=== PATIENT | female | born 1950 | race Caucasian/White ===

== ENCOUNTER 2017-05-28 11:22 | Inpatient (IN) | payer MEDICARE, OTHER ==
[2017-05-28] VITALS (7 sets, daily range): BP systolic 138–182; BP diastolic 73–100
[~2017-05-28] VITALS: Ht 142 cm; Wt 136.1 kg
--- NOTE | ~2017-05-28 | PR ---
[place], [place] PROGRESS NOTE NAME: RUSS CULVER UNIT #: [id number] ROOM: [facility] DOCTOR: RADHA PERES MD BIRTHDATE: [birth year] DOS: SUBJECTIVE: The patient was seen at her bedside today for followup of her mildly elevated troponin. She is a 66-year-old woman with chronic respiratory failure, who has a tracheostomy in place. She can speak around the tracheostomy when she is feeling well. Today, they did deflated the trach cuff for me so that I could talk to her, but she is very uncomfortable with that at the present. She states that she feels like she has got a lot of phlegm in the back of her throat, which she cannot cough up. She does feel breathless when she is off the ventilator. She denies any chest pain. PHYSICAL EXAMINATION: VITAL SIGNS: Today, her pulse is 70 and regular, blood pressure is 110/60. She is afebrile, pulse oximetry is usually around 97%. NECK: Supple. She does have a tracheostomy in place. LUNGS: Respirations are labored. She does have coarse breath sounds bilaterally. HEART: Has a regular rhythm with a fourth heart sound. ABDOMEN: Morbidly obese. EXTREMITIES: Showed trace edema bilaterally. Peripheral pulses were diminished. Monitor shows sinus rhythm. IMPRESSION: 1. Mildly elevated troponin, most likely due to type 2 myocardial injury from respiratory failure, hypoxemia, sepsis, tachycardia, etc. 2. Chronic respiratory failure with tracheostomy and ventilator support. 3. Morbid obesity. 4. History of Pickwickian syndrome. 5. Type 2 diabetes mellitus, on insulin. 6. History of diastolic congestive heart failure. 7. Recurrent pneumonia and respiratory failure. PLAN: I will review her echocardiogram when it is available. She also had a carotid ultrasound this morning, but this has not yet been interpreted. Further recommendations will depend upon the results of her echocardiogram. I thank Dr. Cadena for asking our advice regarding her care. [place], [place] PROGRESS NOTE NAME: ABIOLARUSS Kavitha UNIT #: [id number] ROOM: [facility] DOCTOR: RADHA PERES MD BIRTHDATE: [birth year] RADHA PERES MD CM:PNTRANS [phone] [id number] RADHA PERES MD 05/30/17 1454 interface
--- NOTE | ~2017-05-28 | PR ---
[place], [place] PROGRESS NOTE NAME: RUSS CULVER UNIT #: [id number] ROOM: [facility] DOCTOR: JET BHATIA MD,RAJIV BIRTHDATE: [birth year] DOS: 05/30/2017 SUBJECTIVE: The patient was seen and examined on 05/30/2017. She remains on mechanical ventilator and is able to speak today. She been noted to be comfortable at this time and continues to be treated with the antibiotics as well. She has not been noted to have any symptoms of hemodynamic instability. The secretions production from the endotracheal tube were noted to be decreased. The oxygen supplementation continued at 30% of oxygen on the mechanical ventilator. OBJECTIVE: VITAL SIGNS: Show normal temperature, respiratory rate 17, heart rate 77 and blood pressure 158/62 this morning was noted. The pulse oxygen saturation of the patient recorded on 30% oxygen as 97% saturation. HEENT: Shows head was atraumatic. Eyes nonicterus. NECK: Tracheostomy in place. CARDIOVASCULAR: S1, S2 audible. LUNGS: The patient was noted without any wheezing or crackles at this time. ABDOMEN: Soft, nontender. LABORATORY DATA: Culture of the endotracheal aspirate noted moderate growth of Proteus mirabilis. Urine culture was noted with CRE which is carbapenem-resistant Enterobacteriaceae with heavy growth. CBC: Normal WBC count, hemoglobin 10.5, hematocrit 34.8 and platelet count 134,000. BMP on 05/30/2017, BUN of 55 and creatinine of 1.35. IMPRESSION: 1. The patient with acute tracheobronchitis with acute on chronic hypoxic respiratory failure, resolving. 2. Possible urinary tract infection versus colonization of Gram-negative species as carbapenem-resistant Enterobacteriaceae was noted as well. 3. History of chronic obesity with long-term ventilator dependency as well. PLAN OF TREATMENT: The patient has been getting vancomycin and imipenem. The antibiotic spectrum will be further decreased based on the current sensitivity results, starting the patient on antibiotics as Rocephin with discontinuation of the vancomycin and Zosyn. If the urinary tract infection needs to be treated, it should be addressed with the Infectious Disease services if necessary. Continuation of current mechanical ventilation at this time. Usual care, other supportive plan of management and treatment. No change in mechanical ventilation will be needed. [place], [place] PROGRESS NOTE NAME: RUSS CULVER UNIT #: [id number] ROOM: [facility] DOCTOR: RAJIV JONES MD BIRTHDATE: [birth year] RAJIV CHAUDHARY MD CM:NIKKI [id number] RAJIV BHATIA MD 05/30/17 1052 interface
--- NOTE | ~2017-05-28 | PR ---
[place], [place] PROGRESS NOTE NAME: RUSS CULVER UNIT #: [id number] ROOM: [facility] DOCTOR: JET BHATIA MD,RAJIV BIRTHDATE: [birth year] DOS: 06/01/2017 SUBJECTIVE: She has been noted to be on mechanical ventilator, able to speak, continue assist control mode mechanical ventilation. N.p.o. past midnight. Bronchoscopy planned for today. Cough has been noted intermittently, inability to expectorate any sputum to the trache. OBJECTIVE: VITAL SIGNS: Showed normal temperature, respiratory recorded as 15, heart rate 76, blood pressure 142/61. Pulse oxygen saturation of the patient noted on 30% oxygen mechanical ventilator 98% saturation on assist control, volume control mechanical ventilation. HEENT: Examination shows tracheostomy in place. NECK: Supple. CARDIOVASCULAR: S1, S2 audible. LUNGS: [id number]-[id number] decreased breath sounds without any wheeze or crackles. ABDOMEN: Soft, obese, nontender. IMPRESSION: 1. Acute tracheobronchitis with noted gram-negative infection. The patient with acute on chronic hypercapnic hypoxic respiratory failure. 2. Chronic ventilator dependency. 3. History of chronic morbid obesity. PLAN OF TREATMENT: No changes in the plan of therapy at this time. Proceed with bronchoscopy as planned for today. Other supportive therapy, plan and management. Any modification treatment if necessary will be done after bronchoscopy. RAJIV CHAUDHARY MD CM:PNTRANS [id number] [id number] RAJIV BHATIA MD 06/01/17 1348 interface
--- NOTE | ~2017-05-28 | WRIGHTHP ---
[place], [place] PATIENT HISTORY AND PHYSICAL EXAM NAME: RUSS CULVER [facility] #: [id number] UNIT #: [id number] ROOM: [facility] DOCTOR: AIMEE GARCIA MD BIRTHDATE: [birth year] DOS: 05/28/2017 HISTORY OF PRESENT ILLNESS: The patient is a 66-year-old female with a past medical history of: 1. Chronic morbid obesity. 2. Chronic respiratory failure with tracheostomy tube and mechanical ventilator dependent. 3. Obesity hypoventilation syndrome. 4. Diastolic type congestive heart failure, chronic. 5. Benign essential hypertension. 6. Generalized weakness and failure to thrive. 7. Type 2 diabetes mellitus. 8. Parkinson disease. 9. Chronic obstructive pulmonary disease. 10. Chronic kidney disease stage 3 with diabetic nephropathy. The patient [facility] where she developed hypoxemia. Her pulse ox was only 60% and not improving with nebulizer treatments and oxygen. The patient was seen in the Emergency Department at [facility] and recommended for admission and further management. After admission, the patient is starting to breathe better. The patient is having severe anxiety episodes, which are being controlled with treatment. A consult has been obtained with turning machine set up operator, Dr. Turner. The patient has been continued on mechanical ventilation and is being treated with oxygen and nebulizer treatments. Mild elevation of troponin levels to 0.130, for which Cardiology is being consulted, and more levels have been ordered. The patient has not been complaining of any angina-like symptoms. REVIEW OF SYSTEMS: CARDIOVASCULAR SYSTEM: No complaint of palpitation, no chest pains. LUNGS: Increased shortness of breath and hypoxemia. GASTROINTESTINAL: No nausea, vomiting, diarrhea, or constipation. GENERAL: Severe anxiety and morbid obesity. FAMILY HISTORY: Noncontributory. SOCIAL HISTORY: The patient is chronically disabled and has chronic respiratory failure and [facility]. MEDICATIONS: Levothyroxine, Tradjenta, primidone, potassium, lisinopril, Lasix, omeprazole, glimepiride, mirtazapine, Sinemet, Colace, allopurinol, DuoNeb, Pulmicort, tramadol, MiraLax, lorazepam, temazepam, levothyroxine. ALLERGIES: Known allergies to TETRACYCLINE, TAPE, SULFA, PHENYLALANINE, and MEPERIDINE. PHYSICAL EXAMINATION: GENERAL: Alert, oriented, morbidly obese. Tracheostomy tube in place with the patient being on mechanical ventilation. The patient is morbidly obese, otherwise has been with generalized muscle weakness, which is severe. [place], [place] PATIENT HISTORY AND PHYSICAL EXAM NAME: RUSS CULVER UNIT #: [id number] ROOM: [facility] DOCTOR: AIMEE GARCIA MD BIRTHDATE: [birth year] VITAL SIGNS: Blood pressure 158/77, heart rate 95 beats per minute, breathing 18 times per minute, temperature 99 degrees Fahrenheit. HEENT AND NECK: Extraocular movements are intact. Sclerae are anicteric. Oral mucosa is moist and clean. No obvious facial weakness. Neck is supple without any lymphadenopathy. No thyromegaly. No JVD. No carotid arterial bruits. LUNGS: Clear to auscultation. No wheezing. No rhonchi. CARDIOVASCULAR SYSTEM: Heart rate is regular in rate and rhythm. S1 and S2 normally audible. No significant murmur or any other abnormal cardiac sounds. ABDOMEN: Soft, nontender. No obvious organomegaly. Bowel sounds are present. No obvious herniation. EXTREMITIES: Without significant cyanosis or edema. Warm to touch. CENTRAL NERVOUS SYSTEM: Alert and oriented x 3. Cranial nerves 2-12 are intact. Speech is normal. The patient is able to move all extremities. Generalized muscle weakness, which is severe. Deep tendon reflexes are equal on both sides. Plantars were downgoing. LABORATORY DATA: Blood gases showed a pH of 7.3, pCO2 of 50, pO2 of 136. Sputum grew normal dheeraj. BUN and creatinine 55 and 1.3. Urine cultures growing heavy gram-negative bacilli more than 100,000 colonies. Troponin level elevated at 0.13. Chest x-ray with no acute abnormality but of limited value because of obesity. PT/PTT were baseline. Normal CBC. Lactic acid level is normal. IMPRESSION: 1. The patient has acute over chronic respiratory failure with mechanical ventilation dependence. The patient admitted to Intensive Care Unit and is being treated with nebulizer treatments, oxygen, antibiotics, and her breathing has improved. Sputum cultures have been sent. Dr. Turner, the turning machine set up operator, is following her. 2. Slight elevation of troponin levels. I will follow up with 2 more troponin levels and consult dock hand to evaluate the patient. 3. Type 2 diabetes mellitus. We will monitor blood sugars and treat accordingly. 4. Chronic morbid obesity. The patient to be educated on diet, and Dietary are following. 5. Chronic congestive heart failure, diastolic type, compensated. 6. Exacerbation of chronic obstructive pulmonary disease, being treated as mentioned above. 7. Parkinson disease, being treated with Sinemet. 8. Chronic gouty arthritis, asymptomatic. The patient on allopurinol. 9. Benign essential hypertension. Blood sugars being monitored and treated. [place], [place] PATIENT HISTORY AND PHYSICAL EXAM NAME: RUSS CULVER UNIT #: [id number] ROOM: [facility] DOCTOR: AIMEE GARCIA MD BIRTHDATE: [birth year] AIMEE GARCIA MD CM:HISPHYS:PATIENT HISTORY AND PHYSICAL EXAMINATION [id number] 37 AIMEE GARCIA MD 05/29/17 1738 interface
--- NOTE | ~2017-05-28 | CON ---
[place], [place] REPORT OF CONSULTATION NAME: RUSS CULVER UNIT #: [id number] ROOM: [facility] DOCTOR: JET BHATIA MD,RAJIV BIRTHDATE: [birth year] DOS: 05/29/2017 REASON FOR CONSULTATION: Assess the patient for acute shortness of breath. The patient with [id number]-[id number] respiratory failure. HISTORY OF PRESENT ILLNESS: This is a 66-year-old white female, long-term dependent on the ventilator with prior tracheostomy, [facility]. The patient was brought to the hospital Emergency Room. She has been noted difficulty of maintaining oxygen saturation to normal. Pulse oxygen saturation was described for this patient in the 70s for the patient at the nursing facility. She was sent to the hospital for further assessment. She has been packed in the Emergency Room and noted improvement in the oxygen saturation. She has been continued mechanical ventilation and has had motor mechanical ventilation with 50% oxygen at this time. Currently, the patient has been noted in mechanical ventilation and stated not feeling well, getting SI mode of mechanical ventilation. The patient pressure support of 10, PEEP of 5.0 with a rate of 14 and tidal volume 700 mL. She has been noted with increased secretion production from the tracheostomy, which was suctioned out at times from the tracheostomy. The patient has recently finished the antibiotics. The reason was unknown. She has not been able to give me any history because of current mechanical ventilation, most of the history has been obtained from the patient and from review of the past medical record of the patient during her previous hospitalization and the nursing notes. PAST MEDICAL HISTORY: 1. Noted chronic hypercapnic and hypoxic respiratory failure, ventilatory dependency. 2. History of centrilobular emphysema. 3. Gastroparesis. 4. Congestive heart failure, diastolic dysfunction. 5. Obstructive sleep apnea disorder. 6. Chronic tracheal stenosis. 7. History of Pickwickian syndrome. 8. Bilateral vocal cord paralysis. 9. History of recurrent pneumonia. 10. Anxiety disorder and depression. 11. History of gout. 12. Chronic severe obesity. 13. History of recurrent urinary tract infection. 14. History of past Pseudomonas aeruginosa pneumonia. PAST SURGICAL HISTORY: Noted as tracheostomy. SOCIAL HISTORY: The patient is not . [facility] She denies history of alcohol, illicit drug use or any tobacco use for this patient at this time. She used to smoke cigarettes in the past, which has been discontinued after a few years. FAMILY HISTORY: Noted essentially noncontributory. [place], [place] REPORT OF CONSULTATION NAME: RUSS CULVER UNIT #: [id number] ROOM: [facility] DOCTOR: JET BHATIA MD,RAJIV BIRTHDATE: [birth year] CURRENT ADMINISTERED MEDICATIONS: Noted use of Synthroid, Tradjenta, primidone, potassium chloride, lisinopril, Lasix, omeprazole, Amaryl, Levemir insulin, Remeron, Sinemet, Haldol p.r.n. use, allopurinol, Pulmicort Respules, DuoNeb, IV vancomycin, Zosyn and other p.r.n. medications. ALLERGIES: 1. SULFA DRUGS. 2. PHENYLALANINE. 3. MEPERIDINE. PHYSICAL EXAMINATION: GENERAL: A 66-year-old female who has been currently noted on mechanical ventilator without any distress. She was noted with rather mild distress at time of the assessment. Height for this patient was recorded by the nursing staff at the time of current admission with height of 4 feet 8 inches, weight of 300 pounds. The patient's BMI of 67.4. VITAL SIGNS: For the patient which was recorded shows the temperature noted at 100.6 degree Fahrenheit to normal temperature this morning, respiratory rate 26-17, heart rate 115, blood pressure 160/100 to 116/62. Pulse oxygen saturation of the patient recorded on 50% oxygen at this time as 100% saturation. HEENT: Examination shows head was atraumatic. NECK: Short, obese and supple. Tracheostomy in place. CARDIOVASCULAR SYSTEM: S1, S2 audible. LUNGS: The patient was noted without any wheezing or crackles. ABDOMEN: Soft, severe obesity. EXTREMITIES: Shows no edema, clubbing, cyanosis. The patient is able to move the upper and lower extremities. MUSCULOSKELETAL: No deformities. SKIN: No lesions or rashes. LABORATORY DATA: The chest x-ray that was done for the patient in the Emergency Room noted with significant ____ for the patient in the lower portion of the lungs. The patient was also covered with abdomen flap. The infiltration ____ at this time cannot be clearly noted. CMP that was done on 05/28/2017 for the patient showed glucose 166, BUN 52, creatinine 1.21. The LFTs were noted essentially normal grossly except alkaline phosphatase mildly elevated at 177. Troponin noted 0.052. Troponin second set for the patient this morning noted 0.130. Urine culture noted heavy growth of gram-negative bacilli. Tracheal aspirate yesterday on admission were having white blood cells with moderate gram-positive diplococci service with gram-negative bacilli, moderate growth of gram-negative rods was noted pending identification and sensitivities. The arterial blood gas for the patient that was done for this patient yesterday shows pH 7.31, pCO2 of 54, pO2 115, 50% oxygen on SI mode. Repeat arterial blood gas that was done this morning, the patient same mode of mechanical ventilation, 50% oxygen, pH of 7.08769, pCO2 of 50, pO2 136. Lactic acid yesterday for this patient admission was noted as normal. IMPRESSION: 1. The patient who had been currently admitted to the hospital with signs of [place], [place] REPORT OF CONSULTATION NAME: RUSS CULVER UNIT #: [id number] ROOM: [facility] DOCTOR: JET BHATIA MD,[facility] BIRTHDATE: [birth year] early acute sepsis with gram-negative bacilli isolation from the endotracheal aspirate of the patient with strep strong possibly acute infection, Pseudomonas aeruginosa. 2. Acute with chronic hypercapnic respiratory failure. 3. Qimxn-qa-birribt hypoxic respiratory failure as well. 4. Chronic morbid obese patient with ventilatory dependency, history of bilateral vocal cord paralysis. 5. Recurrent coronary sedation for this patient and infection of the urinary tract. PLAN OF MANAGEMENT: The patient has been started on assist control mode mechanical ventilation at this time. Arterial blood gases will be monitored for patient as needed. Decrease the oxygen to 30% oxygen and monitor oxygen saturation to maintain saturation of 90% greater and further adjust the oxygen accordingly. Monitor culture results of urine for the patient and the endotracheal aspirate of the patient to make any further changes in the management. Use of low dose sedation patient might need to be done for the patient if the patient continued to remain anxious with ventricular asynchrony if noted. Usual care. Supportive therapy plan of management. Nutrition support for the patient at this time we will continue if the patient does eat food while awake on the mechanical ventilator without any difficulty. That will be continued as long as the patient would not have any respiratory difficulty. Other supportive therapy, plan of management. Usual care. DVT prophylaxis. Usual plan of management. Further treatment changes will be done based on progression of the illness. The patient will be continued on current broad spectrum intravenous antibiotics. Lovenox added for the patient's DVT prophylaxis. RAJIV CHAUDHARY MD CM:CONSTR:REPORT OF CONSULTATION 1033 05/29/17 1225 interface
--- NOTE | ~2017-05-28 | PROC NOTE ---
[place], [place] PROCEDURE NOTE NAME: RUSS CULVER UNIT #: [id number] ROOM: [facility] DOCTOR: JET BHATIA MD,RAJIV BIRTHDATE: [birth year] DOS: 06/01/2017 PROCEDURE: Bronchoscopy. PREOPERATIVE DIAGNOSES: Severe cough with the patient's inability to expectorate sputum. The patient with respiratory failure. POSTOPERATIVE DIAGNOSES: Removal of multiple plugs and mucus, endobronchial tree bilaterally. FINDINGS: Acute tracheobronchitis. There were no obstructive lesions. COMPLICATIONS: None. PROCEDURE DESCRIPTION: Informed consent obtained for the patient. The patient was given 5 mg Versed for conscious sedation. Procedure was done at the bedside in Intensive Care Unit negative pressure room. The video fiberoptic bronchoscope was advanced through the tracheostomy into the tracheal lumen, noted very thick purulent secretion, brownish in color and were suctioned out to the iris level. Iris noted sharp. Moderate amount of ____ recurrent mucus plugs, endobronchial tree bilaterally all subsegments of right upper, right middle, left upper, lingular lower lobes. All the secretions suctioned out with the help of normal saline wash, sent for cultures. Procedure was tolerated by the patient without any difficulty. Postoperative finding will be discussed with the patient once the patient recovers the effects of acute sedation. Based on the current bronchoscopy, patient may be considered for discharge to the long-term facility if necessary with followup cultures may modification of antibiotic colonic culture results as necessary. RAJIV CHAUDHARY MD CM:PROCNOTE:PROCEDURE NOTE 1332 [id number] RAJIV BHATIA MD
--- NOTE | ~2017-05-28 | CON ---
[place], [place] REPORT OF CONSULTATION NAME: RUSS CULVER UNIT #: [id number] ROOM: [facility] DOCTOR: RADHA PERES MD BIRTHDATE: [birth year] DOS: 05/29/2017 REASON FOR CONSULTATION: Elevated troponin. HISTORY OF PRESENT ILLNESS: The patient is a 66-year-old woman, who does not have any history of heart disease to her knowledge. She does have a long history of emphysema and respiratory failure. She has had multiple episodes of respiratory failure and has been intubated on numerous occasions. A tracheostomy was placed and now she is constantly on a ventilator. She tells me that typically they leave the cuff of her tracheostomy partially deflated so that she can talk, but she does stay on the ventilator all the time. She denies any chest pain or history of myocardial infarction. She was noted at the correction to have increased hypoxemia and increased oxygen demands. She had just been taken off of a course of antibiotics and believes that she does have a urinary infection, pulmonary infection. She has had some bloody sputum and increased pulmonary secretions. On admission, troponin levels were obtained and were found to be mildly elevated at 0.052, on repeat it was 0.130 and then 0.088. Cardiology was therefore asked to see her. As noted, she denies any history of heart disease or myocardial infarction. Review of her old laboratory studies show that she has had mildly elevated troponin levels in the past, typically in the 0.02 to 0.05 range. The patient does admit to occasional palpitations, but denies lightheadedness or syncope. PAST MEDICAL HISTORY: 1. Chronic hypercapnic and hypoxemic respiratory failure. The patient is dependent on a ventilator through tracheostomy. 2. History of central lobular emphysema. 3. History of gastroparesis. 4. History of "diastolic heart failure." Her most recent echocardiogram on 11/27/2014 was a technically difficult study. Ejection fraction was 50%, right ventricular systolic function was noted to be preserved. There was no pericardial effusion. 5. History of Pickwickian syndrome. 6. 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 7. History of recurrent pneumonia. 8. History of anxiety and depression. 9. History of morbid obesity. 10. History of recurrent urinary tract infections. MEDICATIONS: Prior to admission, budesonide 0.5 mg by inhalation b.i.d., DuoNeb 3 mL by inhalation every 4 hours, acetaminophen p.r.n., allopurinol 100 mg b.i.d., buspirone 10 mg b.i.d., carbidopa/levodopa 25/100 q. 12 hours, vitamin D 4000 units daily, docusate 100 mg b.i.d., folic acid 1 mg daily, furosemide 40 mg daily, glimepiride 4 mg daily, levothyroxine 300 mcg daily, lisinopril 2.5 mg daily, lorazepam 0.5 mg q. 8 hours, magnesium oxide 400 mg t.i.d., mirtazapine [place], [place] REPORT OF CONSULTATION NAME: RUSS CULVER UNIT #: [id number] ROOM: [facility] DOCTOR: RADHA PERES MD BIRTHDATE: [birth year] 15 mg at bedtime, multivitamin daily, Ocuvite daily, omeprazole 20 mg daily, potassium 20 mEq daily, Mysoline 50 mg at bedtime and 25 mg during the day, Sitagliptin 50 mg daily, temazepam 30 mg at bedtime p.r.n. insomnia, tramadol 50 mg q.12 hours p.r.n., Lantus insulin 50 units subcutaneous b.i.d. and regular insulin by sliding scale. ALLERGIES: She lists allergies to TETRACYCLINE, SULFAMETHOXAZOLE, TRIMETHOPRIM, PHENYLAMINE, MEPERIDINE and TAPES. FAMILY HISTORY: Negative for early coronary artery disease. SOCIAL HISTORY: The patient is unmarried. She is a resident of a correction. She does not consume alcohol. She has had a history of tobacco abuse in the past, but not for quite some time. PHYSICAL EXAMINATION: GENERAL: The patient is an obese white female who is awake, alert and oriented. VITAL SIGNS: Pulse is 97 and regular, blood pressure is 148/72. She is afebrile. She weighs 136.1 kg and has a body mass index of 67.5. HEENT: Normocephalic, atraumatic. Extraocular muscles are intact. Sclerae are clear. Pupils are equal, round and reactive to light. The oral mucosa is moist. Tongue is midline. NECK: Supple. It is obese. I could not see jugular distention. Carotids were full. She does have soft carotid bruits bilaterally and does admit that she can hear her pulses in her ears. Oral mucosa is moist. Tongue is midline. RESPIRATORY: Respirations are per ventilator. LUNGS: She has decreased breath sounds at the bases. I heard no rales. CARDIOVASCULAR: Her heart has a regular rhythm with a fourth heart sound, but no third heart sound or murmur. The PMI is not displaced. ABDOMEN: Grossly obese, but soft and normally active without masses, organomegaly or bruits. EXTREMITIES: Showed trace edema bilaterally. Peripheral pulses were diminished bilaterally. LABORATORY DATA: Her electrocardiogram showed a mild sinus tachycardia and nonspecific T-wave abnormalities. IMPRESSION: 1. Mild elevation in troponin. Most likely this is due to a type 2 myocardial injury (demand ischemia) from respiratory failure, hypoxemia, sepsis, tachycardia, etc. I do not see any evidence for an acute myocardial infarction. 2. Chronic respiratory failure on a ventilator with the tracheostomy. 3. Morbid obesity. 4. History of Pickwickian syndrome. 5. Type 2 diabetes mellitus, on insulin. 6. History of diastolic congestive heart failure. 7. Recurrent pneumonias and respiratory failure. PLAN: We will repeat her echocardiogram since one has not been done in several years. She also notes she hears her pulses in her ears and I heard soft bruits. [place], [place] REPORT OF CONSULTATION NAME: RUSS CULVER UNIT #: [id number] ROOM: [facility] DOCTOR: RADHA PERES MD BIRTHDATE: [birth year] So we will be getting a carotid ultrasound. If her left ventricular function is normal and wall motion appears normal, then no other cardiac workup or changes in management would be indicated. I thank Dr. Cadena for asking our advice regarding her care. RADHA PERES MD CM:CONSTR:REPORT OF CONSULTATION 1702 05/29/17 376 interface
--- NOTE | ~2017-05-28 | PR ---
[place], [place] PROGRESS NOTE NAME: RUSS CULVER UNIT #: [id number] ROOM: [facility] DOCTOR: RADHA PERES MD BIRTHDATE: [birth year] DOS: SUBJECTIVE: The patient was seen at her bedside in the intensive care unit today 05/31/2017. She has no family at the bedside at this time. She is able to speak around her tracheostomy. She states that her breathing is still quite limited, but she may be gradually improving. She denies any chest pain, palpitations or syncope. PHYSICAL EXAMINATION: VITAL SIGNS: Today, her pulse is 95 and regular, blood pressure 147/78. She is afebrile. NECK: Supple. She does have a tracheostomy in place. LUNGS: Respirations are somewhat labored in tachypnea. She has decreased breath sounds bilaterally. HEART: Has a regular rhythm with an S4 gallop. ABDOMEN: Markedly obese. EXTREMITIES: Showed trace edema bilaterally. Peripheral pulses are diminished. Her monitor shows that she is still in sinus rhythm. I reviewed her echocardiogram, it is a technically limited study due to her body habitus, but shows normal left ventricular size with mild concentric left ventricular hypertrophy. Left ventricular regional wall motion and systolic function are normal with stage II diastolic relaxation abnormalities. The left atrium appeared to be dilated. She has no significant valvular heart disease. A carotid ultrasound was also reviewed and showed less than 50% stenoses bilaterally by NASCET criteria. IMPRESSION: 1. Mildly elevated troponin. This most likely represents a type 2 myocardial injury due to her respiratory failure, hypoxemia, sepsis, tachycardia, etc. 2. Chronic respiratory failure with tracheostomy and ventilator support. 3. Morbid obesity. 4. History of Pickwickian syndrome. 5. Type 2 diabetes mellitus, on insulin. 6. History of diastolic congestive heart failure. 7. Recurrent pneumonia and respiratory failure. PLAN: The patient appears stable from a cardiac standpoint and no other evaluation is planned at this time. We will sign off for now, but be available if needed. It is my understanding that she will undergo bronchoscopy in the near future and this probably will help alleviate some of her dyspnea. We thank Dr. Cadena for asking our advice regarding her care. [place], [place] PROGRESS NOTE NAME: RUSS CULVER UNIT #: [id number] ROOM: [facility] DOCTOR: RADHA PERES MD BIRTHDATE: [birth year] RADHA PERES MD CM:PNTRANS [id number] RADHA PERES MD 05/31/17 1905 interface
--- NOTE | ~2017-05-28 | PR ---
[place], [place] PROGRESS NOTE NAME: RUSS CULVER UNIT #: [id number] ROOM: [facility] DOCTOR: RAJIV JONES MD BIRTHDATE: [birth year] DOS: 05/31/2017 SUBJECTIVE: She has been noted to be coughing with chest congestion and would like to bronchoscopy done. She remains on mechanical ventilator, tolerating it very well. She has not been noted with any symptoms of chest pain. Started on IV Rocephin yesterday for medical management of tracheobronchitis. OBJECTIVE: VITAL SIGNS: Shows temperature as 99 degrees Fahrenheit, normal temperature; respiratory 13-18; heart rate 76 and blood pressure 115/83 to 134/66. The pulse oxygen saturation on 30% oxygen 100% saturation recorded. HEENT: No acute change. NECK: Supple. CARDIOVASCULAR: S1, S2 is audible. LUNGS: Noted without any wheeze or crackles at the present time. The breaths are noted to be mild to moderately decreased bilaterally. The tracheostomy is in place. ABDOMEN: Soft, nontender. EXTREMITIES: Show mild edema. LABORATORY DATA: CBC this morning: WBC count is normal, hemoglobin 10.1, hematocrit 33.4 and platelet count is normal. BMP noted BUN of 50 and creatinine of 1.32. The remaining electrolytes were normal. IMPRESSION: 1. Acute tracheobronchitis with Gram-negative infection, retained secretions, in the endobronchial tree. 2. Acute on chronic hypoxic respiratory failure and hypercapnia as well, responding to treatment. 3. Possible colonization of the bladder with Gram-negative infection. 4. Edema of the lower extremities. 5. Chronic severe morbid obesity. PLAN OF TREATMENT: Bronchoscopy planned to be done in the morning, n.p.o. past midnight status. The patient will be ____ from midnight tonight. Continue in the meantime other therapy, plan of management. Usual care, other supportive plan of care. Usual medical management. [place], [place] PROGRESS NOTE NAME: RUSS CULVER UNIT #: [id number] ROOM: [facility] DOCTOR: RAJIV JONES MD BIRTHDATE: [birth year] RAJIV CHAUDHARY MD CM:PNTRANS [id number] [facility]7 RAJIV BHATIA MD 05/31/17 1027 interface
--- NOTE | ~2017-05-28 | DS ---
[place], [place] DISCHARGE SUMMARY NAME: RUSS CULVER UNIT #: [id number] ROOM: [facility] DOCTOR: AIMEE GARCIA MD BIRTHDATE: [birth year] DOS: 06/01/2017 DISCHARGE DIAGNOSES: 1. Acute over chronic respiratory failure and mechanical ventilation dependence with tracheostomy tube in place, improved with treatment. 2. Chronic morbid obesity and obesity hypoventilation syndrome. 3. Benign essential hypertension. 4. Chronic diastolic type compensated congestive heart failure. 5. Parkinson's disease and generalized weakness. 6. Urinary tract infection, Klebsiella pneumoniae apparently colonies. 7. Type 2 diabetes mellitus. 8. Chronic obstructive pulmonary disease. 9. Chronic kidney disease stage 3 with diabetic nephropathy. 10. The patient chronic respiratory failure, tracheostomy and ventilator dependent, became hypoxemic at retirement and pulse ox dropped to 60% and was not improving with breathing treatments and suctioning and she was sent to the Emergency Department. After initial evaluation, she was admitted to the ICU for further management. The patient was treated with bronchodilators, oxygen, nebulizer treatments, antibiotics and corticosteroids. The patient was finally taken for bronchoscopy by Dr. Turner and she has been cleared for discharge, back to retirement since she is maintaining her pulse ox with present ventilator settings. 11. Morbid obesity and obesity hypoventilation syndrome. We took bedsore precautions, every 2 hour turning and using an air mattress. 12. Generalized weakness and adult failure to thrive. The patient is bedbound. 13. Chronic diastolic type congestive heart failure, compensated. 14. Type 2 diabetes mellitus. Blood sugars are monitored and treated. 15. Parkinson's disease and generalized weakness. The patient treated with Sinemet. 16. Diabetic nephropathy with chronic kidney disease stage 3. LABORATORY DATA: Carotid artery Doppler showing less than 50% stenosis on both sides, right ankle x-rays without fracture. Echocardiogram showed mild concentric LVH. Blood cultures were negative. Cardiac enzymes were negative except for mild elevation, which was thought to be secondary to respiratory failure. The patient was seen by Cardiology. [place], [place] DISCHARGE SUMMARY NAME: RUSS CULVER UNIT #: [id number] ROOM: [facility] DOCTOR: AIMEE GARCIA MD BIRTHDATE: [birth year] AIMEE GARCIA MD CM:RAJESH [id number] AIMEE GARCIA MD 06/01/17 1726 interface
--- NOTE | ~2017-05-28 | PR ---
[place], [place] PROGRESS NOTE NAME: RUSS CULVER UNIT #: [id number] ROOM: [facility] DOCTOR: AIMEE GARCIA MD BIRTHDATE: [birth year] DOS: 05/30/2017 SUBJECTIVE: The patient is awake, alert, apparently breathing better. OBJECTIVE: VITAL SIGNS: Blood pressure 166/75, heart rate of 87 beats per minute, afebrile, breathing 15 times per minute. The patient remains on mechanical ventilation. GENERAL APPEARANCE: The patient is alert and oriented x 3, in no visible distress. Morbid obesity. Generalized weakness and advanced disability. HEENT AND NECK: Exam within normal limits. Tracheostomy tube in place. CARDIOVASCULAR SYSTEM: Heart rate is regular in rate and rhythm. S1 and S2 normally audible. LUNGS: Clear to auscultation. ABDOMEN: Soft, nontender. No obvious organomegaly. Bowel sounds are present. EXTREMITIES: Without significant cyanosis or edema. IMPRESSION: 1. The patient's minor elevation of troponin I levels considered to be secondary to myocardial injury from respiratory failure and hypoxemia. 2. Acute over chronic respiratory failure is being followed by the drill press operator helper and now she is being treated with IV Rocephin. 3. Urinary tract infection. Urine culture is growing Klebsiella pneumoniae, likely colonization because the patient otherwise asymptomatic. 4. Acute over chronic respiratory failure, being followed by Dr. Turner, antibiotics changed as mentioned above. 5. Parkinson's disease treated with Sinemet, generalized weakness. 6. Chronic diastolic type congestive heart failure, compensated. 7. Chronic gouty arthritis treated with allopurinol. 8. Benign essential hypertension with controlled blood pressures. 9. Morbid obesity. We are taking bedsore precautions turning her every 2 hours and using an air mattress. AIMEE GARCIA MD CM:PNTRANS [id number] AIMEE GARCIA MD 05/31/17 0029 interface
--- NOTE | ~2017-05-28 | PR ---
[place], [place] PROGRESS NOTE NAME: RUSS CULVER UNIT #: [id number] ROOM: [facility] DOCTOR: AIMEE GARCIA MD BIRTHDATE: [birth year] DOS: 05/31/2017 SUBJECTIVE: The patient continues to feel better and she has been scheduled for bronchoscopy by Dr. Turner tomorrow. OBJECTIVE: VITAL SIGNS: Blood pressure 159/83, heart rate 76 beats and breathing 13-18 times per minute, temperature 98 degrees Fahrenheit. GENERAL APPEARANCE: The patient is alert and oriented x 3, in no visible distress. Generalized weakness. HEENT AND NECK: Exam within normal limits. CARDIOVASCULAR SYSTEM: Heart rate is regular in rate and rhythm. S1 and S2 normally audible. LUNGS: Tracheostomy tube and mechanical ventilation dependence. ABDOMEN: Morbidly obese. Soft, nontender. No obvious organomegaly. Bowel sounds are present. EXTREMITIES: Without significant cyanosis or edema. IMPRESSION: 1. The patient with acute on chronic respiratory failure. Her hypoxemia at nursing was as low as 60%, pulse ox has now improved. Dr. Turner is treating her with IV Rocephin and taking her for bronchoscopy tomorrow following which I am hoping I can discharge her back to the longterm. 2. Urinary tract infection growing Klebsiella pneumoniae, apparently a colonizer of certain resistant organism and otherwise the patient is asymptomatic. 3. Parkinson's disease treated with Sinemet and generalized weakness. 4. Chronic diastolic type congestive heart failure, compensated. 5. Chronic gouty arthritis, asymptomatic with allopurinol. 6. Benign essential hypertension with controlled blood pressures. 7. Morbid obesity. We are taking bedsore precautions turning her every 2 hours and using an air mattress. AIMEE GARCIA MD CM:PNTRANS [id number] AIMEE GARCIA MD 05/31/17 1251 interface
[~2017-05-28 11:22] MED LIST: 'XANAX0.25 MG PO; 'XANAX0.5 MG PO; ALLEGRA30 MG PO; ALLEGRA60 M1 PO; ALLOPURINOL100 MG PO; AMARYL4 MG PO; ARTIFICIAL TEA1 EACH OP; ATARAX25 MG PO; B121000 MCG/1 IM; BACTRIM DS 8001 TA1 PO; BUDESONIDE0.5 MG/2 M IH; BUSPAR5 MG PO; BUSPIRONE10 MG PO; Bactroban Oint22 GM T; CARBIDOPA/LEVOD1 TA1 PO; CIPROFLOXACIN500 MG PO; CLARITIN10 MG PO; COLACE100 MG PO; COREG3.125 MG PO; DIABETA5 MG PO; DUONEB 3 MG/3 ML3 M1 INH; DUONEB 3ML 3 MG/3 ML INH; Duoneb 3ML 3 MG/3 ML INH; ELTROXIN0.3 MG PO; FEXOFENADINE HC30 MG PO; FOLIC ACID1 MG PO; FUROSEMIDE20 MG PO; GLUCAGEN1 MG IJ; GLUTOSE 1515 GM PO; GLYCOLAX17 GM/DOSE PO; GOLD BOND MEDI113 GM TP; HYDROCODONE BIT1 T11 PO; JANUVIA100 MG PO; K-DUR 2020 MEQ PO; K-DUR 20MEQ20 MEQ PO; K-DUR20 MEQ PO; K-TAB20 MEQ PO; LANTUS100 U/ML SC; LASIX20 MG PO; LASIX40 MG PO; LEVOTHYROXINE0.05 MG PO; LEVOTHYROXINE0.15 MG PO; LEVOTHYROXINE300 MCG PO; LISINOPRIL2.5 MG PO; LORTAB 5/3251 TAB PO; MAG-OX 400400 MG PO; MAGNESIUM OXID400 MG PO; METOCLOPRAMIDE10 M3 PO; MILK OF MAGNESI1 TAB PO; MIRALAX17 GM/DOSE PO; MIRALAX17 GM/PACK PO; MOM30 ML PO; MYSOLINE50 M2 PO; Mysoline50 MG PO; NATURE'S BLEND F1 MG PO; NORCO 325 MG-51 TAB PO; NOVOLIN 701 UNIT/0.0 SC; NOVOLIN N100 U/ML SC; NOVOLIN R100 U/ML IJ; NOVOLIN R100 U/ML SC; NYAMYC100000 U/G TP; NYSTATIN CREAM T; Nystatin Cream15 GM T; OCUVITE EYE +1 EACH PO; OMEPRAZOLE D/R20 MG PO; PRILOSEC10 MG PO; PRILOSEC20 M1 PO; PRILOSEC20 MG PO; PULMICORT0.2 MG/ACT INH; PULMICORT180 MCG/Ac NEB; REGLAN10 M1 PO; REGLAN10 MG PO; REGLAN5 MG PO; REMERON15 M2 PO; REMERON45 MG PO; ROCEPHIN1 GM/50 M1 IV; SERTRALINE100 MG PO; SYNTHROID,LEV150 MCG PO; SYNTHROID,LEV175 MCG PO; SYNTHROID,LEV200 MCG PO; SYNTHROID,LEVO25 MCG PO; SYNTHROID0.15 MG PO; SYNTHROID0.3 MG PO; Synthroid,Lev200 MCG PO; TAB-A-VITE1 TA1 PO; TRAVATAN 0.0042.5 ML OU; TRAVATAN 2.5 M2.5 ML OPH; TYLENOL ARTHRI650 MG PO; TYLENOL325 M1 PO; TYLENOL650 M1 PO; VISTARIL25 MG PO; VITAMIN D1000 IU PO; VITAMIN D3 PO; VITAMIN D31000 IU PO; VITAMIN D32000 I1 PO; VITAMIN D32000 IU PO; VITAMIN-D1000 IU PO; Vicodin 5/500 505 MG PO; XANAX0.25 MG PO; ZESTRIL2.5 MG PO; ZOFRAN ODT4 MG SL; ZOLOFT PO; ZOLOFT100 MG PO; ZOLOFT25 MG PO; ZOLOFT50 MG PO; ZYLOPRIM100 MG PO; Zofran4 MG PO; [UNRECOGNIZED DRUG - OTHER] IM; [UNRECOGNIZED DRUG - OTHER] IV
[2017-05-28 11:59] LABS: BASO % 0.3 % (0.0-1.0); EOS # 0.2 10*3/uL (0.0-0.4); EOS % 2.1 % (1.0-4.0); HEMATOCRIT 41.1 % (37.0-47.0); HEMOGLOBIN 12.7 g/dl (12.0-16.0); IG # 0.1 10*3/uL (0.0-0.1); LYMPH % 10.3 % (27.0-41.0); MEAN CELL VOLUME 96.9 fl (81.0-99.0); MEAN CORPUSCULAR HGB CONC 30.9 g/dl (33.0-37.0); MEAN PLATELET VOLUME 11.5 fl (9.6-12.3); MONO # 0.6 10*3/uL (0.1-1.0); MONO % 6.4 % (3.0-9.0); NEUT # 7.8 10*3/uL (2.3-7.9); NEUT % 80.4 % (47.0-73.0); PLATELET COUNT AUTOMATED 168 10*3/uL (130-400); RED BLOOD COUNT 4.24 10*6/uL (4.10-5.10); RED CELL DISTRI WIDTH 14.6 % (0-14.5); WHITE BLOOD COUNT 9.7 10*3/uL (4.8-10.8)
[2017-05-28 12:08] LABS: PROTHROMBIN TIME 10.4 SECONDS (9.0-12.4)
[2017-05-28 12:14] LABS: ALBUMIN 3.4 gm/dl (3.1-4.5); BILIRUBIN, TOTAL 0.2 mg/dl (0.2-1.0); C-REACTIVE PROTEIN 1.92 MG/DL (0-0.3); TOTAL PROTEIN 7.8 gm/dL (6.4-8.2)
[2017-05-28 12:18] LABS: TROPONIN I 0.052 ng/ml (<0.045)
[2017-05-28 13:33] LABS: BILIRUBIN NEGATIVE (NEGATIVE); BLOOD TRACE-LYSED (NEGATIVE); CLARITY SL CLOUDY (CLEAR); COLOR YELLOW (YELLOW); GLUCOSE NEGATIVE (NEGATIVE); KETONE NEGATIVE (NEGATIVE); LEUKO ESTERASE TRACE (NEGATIVE); NITRITE NEGATIVE (NEGATIVE); PROTEIN 1+ (NEGATIVE); SPECIFIC GRAVITY <= 1.005 (1.005-1.030); UROBILINOGEN 0.2 E.U./dl (0.2-1.0)
[2017-05-28 13:43] LABS: BACTERIA TRACE; URINE REFLEX COMMENT YES (NO)
[2017-05-28] MEDS ORDERED: ATIVAN0.5 MG PO (16:22)
[2017-05-28] MEDS ORDERED: TYLENOL325 M2 PO (16:23)
[2017-05-28] MEDS ORDERED: TRAMADOL HCL50 MG PO (16:24)
[2017-05-28] MEDS ORDERED: JANUVIA50 MG PO (16:25)
[2017-05-28] MEDS ORDERED: HUMULIN R100 U/ML SC (16:26)
[2017-05-28] MEDS ORDERED: TEMAZEPAM30 MG PO (16:27)
[2017-05-28 17:31] LABS: ABG CO2 CONTENT 29.2 mmol/L (23-27); ABG HCO3 27.5 mmol/l (22-26); ARTERIAL BLOOD GAS PH 7.319 (7.35-7.45)
[2017-05-29] VITALS: BP 99/51
[2017-05-29 04:00] VITALS: BP 103/59
[2017-05-29 06:49] LABS: BASO % 0.3 % (0.0-1.0); EOS # 0.2 10*3/uL (0.0-0.4); EOS % 3.3 % (1.0-4.0); LYMPH # 0.6 10*3/uL (1.3-4.4); LYMPH % 9.4 % (27.0-41.0); MEAN CORPUSCULAR HGB 30.1 pg (27.0-31.0); MEAN CORPUSCULAR HGB CONC 30.1 g/dl (33.0-37.0); MONO # 0.4 10*3/uL (0.1-1.0); MONO % 6.7 % (3.0-9.0); NEUT # 4.9 10*3/uL (2.3-7.9); NEUT % 79.8 % (47.0-73.0); PLATELET COUNT AUTOMATED 157 10*3/uL (130-400); RED BLOOD COUNT 3.36 10*6/uL (4.10-5.10); RED CELL DISTRI WIDTH 14.8 % (0-14.5); WHITE BLOOD COUNT 6.2 10*3/uL (4.8-10.8)
[2017-05-29 06:50] LABS: HEMATOCRIT 33.6 % (37.0-47.0); HEMOGLOBIN 10.1 g/dl (12.0-16.0)
[2017-05-29 07:02] LABS: POTASSIUM 3.6 mmol/L (3.5-5.1)
[2017-05-29 08:00] VITALS: BP 116/62
[2017-05-29 09:05] LABS: ABG CO2 CONTENT 27.3 mmol/L (23-27); ABG HCO3 25.7 mmol/l (22-26); ABG TEMPERATURE 98.7 F (98.0-99.0); ARTERIAL BLOOD GAS PH 7.328 (7.35-7.45)
[2017-05-29 12:00] VITALS: BP 158/77
[2017-05-29 16:00] VITALS: BP 148/72
[2017-05-29 19:39] VITALS: BP 87/51
[2017-05-30] VITALS (7 sets, daily range): BP systolic 110–166; BP diastolic 43–91
[2017-05-30 05:23] LABS: POTASSIUM 3.8 mmol/L (3.5-5.1)
[2017-05-30 06:16] LABS: BASO % 0.3 % (0.0-1.0); EOS # 0.3 10*3/uL (0.0-0.4); EOS % 4.8 % (1.0-4.0); HEMATOCRIT 34.8 % (37.0-47.0); HEMOGLOBIN 10.5 g/dl (12.0-16.0); LYMPH # 0.8 10*3/uL (1.3-4.4); LYMPH % 13.4 % (27.0-41.0); MEAN CELL VOLUME 99.7 fl (81.0-99.0); MEAN CORPUSCULAR HGB 30.1 pg (27.0-31.0); MEAN CORPUSCULAR HGB CONC 30.2 g/dl (33.0-37.0); MEAN PLATELET VOLUME 12.2 fl (9.6-12.3); MONO # 0.4 10*3/uL (0.1-1.0); MONO % 7.2 % (3.0-9.0); NEUT # 4.3 10*3/uL (2.3-7.9); PLATELET COUNT AUTOMATED 134 10*3/uL (130-400); RED BLOOD COUNT 3.49 10*6/uL (4.10-5.10); RED CELL DISTRI WIDTH 15.2 % (0-14.5); WHITE BLOOD COUNT 5.8 10*3/uL (4.8-10.8)
[2017-05-31] VITALS: BP 120/57
[2017-05-31 04:00] VITALS: BP 134/66
[2017-05-31 05:59] LABS: BASO % 0.3 % (0.0-1.0); EOS # 0.4 10*3/uL (0.0-0.4); EOS % 6.2 % (1.0-4.0); HEMATOCRIT 33.4 % (37.0-47.0); HEMOGLOBIN 10.1 g/dl (12.0-16.0); LYMPH # 0.9 10*3/uL (1.3-4.4); LYMPH % 13.5 % (27.0-41.0); MEAN CELL VOLUME 98.2 fl (81.0-99.0); MEAN CORPUSCULAR HGB 29.7 pg (27.0-31.0); MEAN CORPUSCULAR HGB CONC 30.2 g/dl (33.0-37.0); MEAN PLATELET VOLUME 11.8 fl (9.6-12.3); MONO # 0.5 10*3/uL (0.1-1.0); MONO % 7.3 % (3.0-9.0); NEUT # 4.9 10*3/uL (2.3-7.9); NEUT % 72.4 % (47.0-73.0); PLATELET COUNT AUTOMATED 144 10*3/uL (130-400); RED CELL DISTRI WIDTH 15.2 % (0-14.5); WHITE BLOOD COUNT 6.8 10*3/uL (4.8-10.8)
[2017-05-31 08:00] VITALS: BP 159/83
[2017-05-31 12:00] VITALS: BP 184/86
[2017-05-31 16:00] VITALS: BP 147/78
[2017-05-31 20:00] VITALS: BP 169/78
[2017-06-01] VITALS: BP 142/61
[2017-06-01 04:00] VITALS: BP 152/56
[2017-06-01 08:00] VITALS: BP 139/63
[2017-06-01 12:00] VITALS: BP 135/71
[2017-06-01 15:53] VITALS: BP 177/92
[2017-06-02 14:07] LABS: ACID FAST SPEC PROCESSING Concentration (.)
== END 2017-06-01 16:42 | disposition other institution (70) | DRG 870 ==
LOC: ED 11:22 → ICCU 14:05 → EDHOLD 14:05 → ICCU 14:41
PROVIDERS: Emergency Medicine; Internal Medicine; Internal Medicine Critical Care Medicine
PROC: 5A1955Z Respiratory Ventilation, Greater than 96 Consecutive Hours (ICD-10-PCS; principal; 2017-05-28)
PROC: 0BC88ZZ Extirpation of Matter from Left Upper Lobe Bronchus, Via Natural or Artificial Opening Endoscopic (ICD-10-PCS; 2017-06-01)
PROC: 0BC98ZZ Extirpation of Matter from Lingula Bronchus, Via Natural or Artificial Opening Endoscopic (ICD-10-PCS; 2017-06-01)
PROC: 0BCB8ZZ Extirpation of Matter from Left Lower Lobe Bronchus, Via Natural or Artificial Opening Endoscopic (ICD-10-PCS; 2017-06-01)
PROC: 0BC68ZZ Extirpation of Matter from Right Lower Lobe Bronchus, Via Natural or Artificial Opening Endoscopic (ICD-10-PCS; 2017-06-01)
PROC: 0BC38ZZ Extirpation of Matter from Right Main Bronchus, Via Natural or Artificial Opening Endoscopic (ICD-10-PCS; 2017-06-01)
PROC: 0BC48ZZ Extirpation of Matter from Right Upper Lobe Bronchus, Via Natural or Artificial Opening Endoscopic (ICD-10-PCS; 2017-06-01)
PROC: 0BC78ZZ Extirpation of Matter from Left Main Bronchus, Via Natural or Artificial Opening Endoscopic (ICD-10-PCS; 2017-06-01)
PROC: 0BC58ZZ Extirpation of Matter from Right Middle Lobe Bronchus, Via Natural or Artificial Opening Endoscopic (ICD-10-PCS; 2017-06-01)
PROC: 0BC18ZZ Extirpation of Matter from Trachea, Via Natural or Artificial Opening Endoscopic (ICD-10-PCS; 2017-06-01)
DX: A41.59 Other Gram-negative sepsis (principal); J96.21 Acute and chronic respiratory failure with hypoxia; J18.9 Pneumonia, unspecified organism; J44.0 Chronic obstructive pulmonary disease with (acute) lower respiratory infection; Z93.0 Tracheostomy status; J96.22 Acute and chronic respiratory failure with hypercapnia; E66.2 Morbid (severe) obesity with alveolar hypoventilation; I50.32 Chronic diastolic (congestive) heart failure; I13.0 Hypertensive heart and chronic kidney disease with heart failure and stage 1 through stage 4 chronic kidney disease, or unspecified chronic kidney disease; J44.1 Chronic obstructive pulmonary disease with (acute) exacerbation; N39.0 Urinary tract infection, site not specified; Z68.44 Body mass index [BMI] 60.0-69.9, adult; R62.7 Adult failure to thrive; M1A.9XX0 Chronic gout, unspecified, without tophus (tophi); J20.9 Acute bronchitis, unspecified; B96.1 Klebsiella pneumoniae [K. pneumoniae] as the cause of diseases classified elsewhere; G20 Parkinson's disease; E11.22 Type 2 diabetes mellitus with diabetic chronic kidney disease; N18.3 Chronic kidney disease, stage 3 (moderate); Z88.2 Allergy status to sulfonamides; Z88.1 Allergy status to other antibiotic agents; Z88.8 Allergy status to other drugs, medicaments and biological substances

== ENCOUNTER 2017-06-17 15:39 | Inpatient (IN) | payer MEDICARE, OTHER ==
[~2017-06-17] VITALS: Ht 144.8 cm; Wt 130.0 kg
--- NOTE | ~2017-06-17 | CON ---
[place], [place] REPORT OF CONSULTATION NAME: RUSS CULVER UNIT #: [id number] ROOM: [facility] DOCTOR: RADHA PERES MD BIRTHDATE: [birth year] DOS: 06/18/2017 REASON FOR CONSULTATION: Elevated troponin. HISTORY OF PRESENT ILLNESS: The patient is a 66-year-old woman who was seen at her bedside in the intensive care unit. She has no documented history of myocardial infarction or heart disease, but she does have a long history of emphysema with recurrent respiratory failure. She has been intubated on numerous occasions and a tracheostomy was subsequently placed. She is now constantly on a ventilator. She is able to talk around her tracheostomy cuff, but otherwise stays on the ventilator all of the time. She denies any history of chest pain or myocardial infarction as noted above. On 05/29/2017, she developed increased hypoxemia and increased oxygen demands. She just finished antibiotic therapy for a urinary infection and pulmonary infection and did have some bloody sputum with increased pulmonary secretions. On that admission, she was noted to have a mild elevation in troponin and Cardiology was consulted. She did not have any acute EKG changes and her echocardiogram looked normal. We presumed that she had a type 2 myocardial injury due to hypoxemia, increased work of breathing, etc. She was allowed to go back to her [facility]. The current admission was prompted by mucus plugging with increased dyspnea. The patient was brought to [facility] where she was aggressively suctioned and now feels back to her baseline. Once again, she was noted to have a mild elevation in troponin and we were asked to reassess her. The patient denies any chest pain or palpitations and tells me that she now feels back to her baseline. PAST MEDICAL HISTORY: Includes, 1. Chronic hypercapnic and hypoxemic respiratory failure. The patient is ventilator dependent through a tracheostomy. 2. History of central lobular emphysema. 3. History of gastroparesis. 4. History of diastolic heart failure. 5. History of Pickwickian syndrome. 6. 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 7. History of recurrent pneumonia. 8. History of anxiety and depression. 9. History of morbid obesity. 10. History of recurrent urinary tract infections. 11. Echocardiogram on 05/30/2017 showed normal left ventricular size with mild concentric left ventricular hypertrophy, normal left ventricular regional wall motion and systolic function with grade 2 diastolic relaxation abnormalities, dilated left atrium. No significant valve disease. MEDICATIONS: Prior to admission: Budesonide by inhaler b.i.d., DuoNeb by nebulizer every 4 hours, acetaminophen p.r.n., allopurinol 100 mg b.i.d., buspirone 10 mg t.i.d., carbidopa with levodopa 25/100 b.i.d., vitamin D3 4000 units daily, Klonopin 0.5 mg every 12 hours, docusate 100 mg b.i.d., folic acid [place], [place] REPORT OF CONSULTATION NAME: RUSS CULVER UNIT #: [id number] ROOM: [facility] DOCTOR: RADHA PERES MD BIRTHDATE: [birth year] 1 mg daily, furosemide 40 mg daily, glimepiride 4 mg daily, hydroxyzine 50 mg q. 6 hours p.r.n., levothyroxine 300 mcg at bedtime, lisinopril 2.5 mg daily, lorazepam 0.5 mg q. 6 hours p.r.n., magnesium oxide 400 mg t.i.d., Remeron 15 mg at bedtime, multivitamin 1 daily at bedtime, omeprazole 20 mg daily, potassium 20 mEq daily, Mysoline 50 mg at bedtime and 25 mg daily, sitagliptin 50 mg daily, temazepam 30 mg at bedtime, tramadol 50 mg twice a day p.r.n., vitamin A, C and luteum with minerals ([id number]) daily, Lantus insulin 50 units b.i.d. and Humulin regular insulin by sliding scale. ALLERGIES: The patient lists allergies to MEPERIDINE, PHENTOLAMINE, TETRACYCLINE, TAPE, SULFAMETHOXAZOLE and TRIMETHOPRIM. FAMILY HISTORY: Negative for early coronary artery disease. SOCIAL HISTORY: The patient is unmarried. She is a resident of a [facility]. She does not consume alcohol. She has had a history of tobacco abuse in the past, but has not smoked in many years. PHYSICAL EXAMINATION: GENERAL: The patient is an obese white female who is awake, alert and oriented. She does have a tracheostomy in place, but is able to speak around the tracheostomy tube. VITAL SIGNS: Pulse is 84 and regular, blood pressure 116/59. She is afebrile. HEENT: Normocephalic, atraumatic. Extraocular muscles are intact. Sclerae are clear. Pupils are equal, round and reactive to light. The oral mucosa is moist. Tongue is midline. NECK: Supple. She is morbidly obese and it is very difficult to see neck veins. Carotids are full. I did not hear any bruits today. RESPIRATORY: Respirations are per ventilator. LUNGS: Have decreased breath sounds at the bases. There were no wheezes or rales. HEART: Had a regular rhythm with a fourth heart sound, but no third heart sound or obvious murmur. The PMI was not displaced. There was no precordial heave, lift or thrill. ABDOMEN: Grossly obese, but soft and normally active without masses, organomegaly or bruits. EXTREMITIES: Showed no edema. Peripheral pulses were palpable bilaterally. LABORATORY DATA: Hemoglobin is 13.1 with hematocrit 41.6, there are 12,300 white cells and 248,000 platelets present. Sodium is 143, potassium 4.0, BUN 41, creatinine 1.47. Lactic acid was normal at baseline at 1.1. Troponin levels were 0.172, 0.180 and 0.156. I reviewed her electrocardiogram, which showed sinus rhythm with nonspecific ST and T-wave changes. It was unchanged from a previous electrocardiogram dated 05/29/2017. IMPRESSIONS: 1. Mild elevation in troponin, once again this is likely due to type 2 myocardial injury (demand ischemia) from her respiratory failure, hypoxemia, [place], [place] REPORT OF CONSULTATION NAME: RUSS CULVER UNIT #: [id number] ROOM: [facility] DOCTOR: RADHA PERES MD BIRTHDATE: [birth year] sepsis, tachycardia, etc. I do not see any evidence for acute myocardial infarction. 2. Chronic respiratory failure, on a ventilator via a tracheostomy. 3. Morbid obesity. 4. History of Pickwickian syndrome. 5. Type 2 diabetes mellitus, on insulin. 6. History of diastolic congestive heart failure. 7. Recurrent pneumonias and respiratory failure. 8. Hospitalization for respiratory failure, acutely caused this occasion by mucus plugging. PLAN: The patient was evaluated by Cardiology earlier this month and I do not see that anything has much changed in the meantime. We will observe her clinically, but no other cardiac workup is planned. I thank Dr. Lopes for asking our advice regarding the patient's care. RADHA PERES MD CM:CONSTR:REPORT OF CONSULTATION 1716 06/18/17 2141 interface
--- NOTE | ~2017-06-17 | PR ---
[place], [place] PROGRESS NOTE NAME: RUSS CULVER UNIT #: [id number] ROOM: [facility] DOCTOR: CESILIA SOLANO MD BIRTHDATE: [birth year] DOS: 06/20/2017 SUBJECTIVE: The patient is doing fine without any complaints. She did have a restful night. Did request Ativan and Klonopin as ordered. OBJECTIVE: VITAL SIGNS: Graphic trend shows that she is afebrile. Blood pressure is 142/70, pulse of 56, respirations 14 and afebrile. LUNGS: Diminished breath sounds, clear. HEART: Regular. ABDOMEN: Obese, soft, nontender. EXTREMITIES: Without any edema. ASSESSMENT AND PLAN: 1. Mucus plugging resulting in acute hypoxic respiratory failure, this has improved. 2. Demand ischemia, resulting in troponin leak. 3. Obesity hypoventilation. 4. Recent gentamicin resistant pseudomonas, which is being treated with IV antibiotics. The patient is stable and can be discharged back to the assisted but continue antibiotics there. Discussed with Dr. Turner. CESILIA SOLANO MD CM:NIKKI [id number] CESILIA SOLANO MD 06/20/17 0759 interface
--- NOTE | ~2017-06-17 | DS ---
[place], [place] DISCHARGE SUMMARY NAME: RUSS CULVER UNIT #: [id number] ROOM: [facility] DOCTOR: CESILIA SOLANO MD BIRTHDATE: [birth year] DOS: 06/20/2017 DIAGNOSIS: 1. Acute hypoxic respiratory failure from mucus plugging. 2. Chronic respiratory failure, ventilator dependent. 3. Obesity hypoventilation. 4. Elevated troponins from most likely demand ischemia. 5. Benign hypertension. 6. History of diastolic congestive heart failure. 7. Generalized anxiety disorder. 8. Chronic renal failure stage 3. 9. Gentamicin-resistant Pseudomonas. DISCHARGE MEDICATIONS: Medications treatment will be atorvastatin 40 daily, metoprolol 12.5 mg daily, lisinopril 2.5 daily, aspirin 81 daily, tramadol 50 b.i.d. p.r.n., Tylenol 650 q.6h. p.r.n. for fever, Mysoline 50 mg at bedtime, Klonopin 0.5 b.i.d. p.r.n. for anxiety, lorazepam 0.5 q.6h. p.r.n. for anxiety, BuSpar 10 t.i.d., carbidopa and levodopa 25/100 one tablet with D twice daily, potassium 20 daily, Lasix 40 daily, Fortaz 1 gram b.i.d., budesonide 0.5 b.i.d. in the breathing treatments, DuoNeb q.4h. in the nebulizer, Colace 100 mg b.i.d., Januvia 50 daily, omeprazole 20 daily, insulin 50 units of Lantus twice a day, coverage scale, glimepiride 4 mg daily, levothyroxine 300 mcg daily, folic acid 1 mg daily, vitamin D 4000 units daily, multivitamin 1 tablet daily, allopurinol 100 mg daily, atorvastatin 40 mg daily. HOSPITAL COURSE: The patient is very well known to us. A 66 years old who comes in with a low saturation to the Emergency Room. She was evaluated and a chest x-ray and was admitted with hypoxia. She apparently had a mucus plug, which was suctioned out and her saturations improved. Rule out CO protocol was ordered because of the hypoxemia. Dr. Oliver and Dr. Turner were consulted. Medications adjustments were made for the psych medications. She has severe anxiety and panic attacks and has been managed currently with these meds that she is currently on. She seems to be fairly stable. She has not had any new problems since admission. Urine culture shows gram-negative bacteria. Final is not completed yet, but she is on Fortaz. It should cover the current infection. We will readjust meds if we need to. DIET: ADA 1800. [place], [place] DISCHARGE SUMMARY NAME: RUSS CULVER UNIT #: [id number] ROOM: [facility] DOCTOR: CESILIA SOLANO MD BIRTHDATE: [birth year] CESILIA SOLANO MD CM:DISCHARG 9 CESILIA SOLANO MD 06/20/17839 interface
--- NOTE | ~2017-06-17 | WRIGHTHP ---
[place], [place] PATIENT HISTORY AND PHYSICAL EXAM [id number] UN[facility] #: [id number] ROOM: [facility] DOCTOR: CESILIA SOLANO MD BIRTHDATE: [birth year] DOS: 06/17/2017 HISTORY OF PRESENT ILLNESS: This patient is 66 years old. The patient comes in with complaints of difficulty breathing and hypoxemia. A 66-year-old patient who has been a chronic ventilator patient suddenly was noted to have desaturation. The patient also did complain of shortness of breath, became quite anxious, was sent out to the Emergency Room. By the time she arrived to the Emergency Room, she was suctioned and saturations have improved. She did not have any other complaints. In process of workup, she underwent a venous Doppler. It was technically difficult and while to do the study, the patient became quite short of breath after the pannus was elevated over her abdomen. The patient was brought back to the ER, was lateralized and saturations did improve. This morning, the patient is awake and alert and oriented, just tries to fall back in to sleep at times, but she is able to answer questions appropriately, does not have any complaints this morning. Denies any chest pains, palpitations. PAST MEDICAL HISTORY: Significant for: 1. Last hospitalization in May with chronic respiratory failure, underwent a bronchoscopy at that time. 2. Obesity hypoventilation. 3. Benign hypertension. 4. Diastolic CHF. 5. Parkinson's. 6. Generalized anxiety disorder. 7. Chronic renal failure stage III. MEDICATIONS: The patient is currently on budesonide, DuoNeb, allopurinol, BuSpar 10 t.i.d., carbidopa and levodopa b.i.d., vitamin D 4000 units daily, Klonopin 0.5 b.i.d., Colace 100 b.i.d., folic acid 1 mg daily, Lasix 40 daily, glimepiride 4 mg daily, hydroxyzine 50 q. 6 hours., levothyroxine 300 mcg at bedtime, lisinopril 2.5 daily, lorazepam 0.5 q. 6 hours., mag oxide 400 t.i.d., Remeron 45 at bedtime, omeprazole 20 daily, potassium 20 daily, primidone 50 at bedtime, temazepam 30 at bedtime, tramadol 50 b.i.d., insulin 50 units subQ twice a day. SOCIAL HISTORY: Nonsmoker. Resident of a half-way. PHYSICAL EXAMINATION: GENERAL: She is awake and alert and oriented. VITAL SIGNS: Blood pressure is 90/49, pulse of 66, respirations 18, temperature 98.4. LUNGS: Diminished breath sounds. No wheezes, rales or rhonchi heard. HEART: Regular. ABDOMEN: Obese. EXTREMITIES: With trace chronic edema from lymphedema. LABORATORY DATA: Venous Doppler was not a good study, but was unremarkable. AB.4, pCO2 of 44, pO2 of 115, bicarbonate 29.5. Comprehensive: Glucose 89, BUN 41, creatinine 1.47. Electrolytes were normal. Chest x-ray [place], [place] PATIENT HISTORY AND PHYSICAL EXAM NAME: RUSS CULVER UNIT #: [id number] ROOM: [facility] DOCTOR: CESILIA SOLANO MD BIRTHDATE: [birth year] unremarkable, stable cardiomegaly, lungs are clear. WBC count is 4.3. ASSESSMENT AND PLAN: 1. Acute hypoxic respiratory failure in a patient on a vent. Mucus plug most likely caused acute hypoxic respiratory failure. She was suctioned and seems to be doing better. 2. Elevated troponin, possibly from chronic renal insufficiency, but we cannot rule out myocardial infarction. I have asked Cardiology for an opinion. Echocardiogram will be ordered. Discussed with the patient this morning. 3. Type 2 diabetes mellitus, insulin-dependent. Blood sugars will be ordered twice a day. An ADA diet has been ordered. 4. History of recent bronchoscopy with negative bronch cultures. No pneumonia seen on a chest x-ray, but the patient may have an underlying urinary tract infection. Urine culture has been sent. Antibiotics started. CESILIA SOLANO MD CM:HISPHYS:PATIENT HISTORY AND PHYSICAL EXAMINATION [id number] CESILIA SOLANO MD 06/18/17 1028 interface
--- NOTE | ~2017-06-17 | PR ---
[place], [place] PROGRESS NOTE NAME: RUSS CULVER UNIT #: [id number] ROOM: [facility] DOCTOR: CESILIA SOLANO MD BIRTHDATE: [birth year] DOS: SUBJECTIVE: The patient is awake and alert and oriented this morning. Does not appear to have any new complaints. She had a fairly restful night. OBJECTIVE: VITAL SIGNS: Graphic trend shows pressure 127/72, pulse of 90, respirations 16, temperature 98.5. LUNGS: Diminished breath sounds. No wheezes heard this morning. HEART: Regular. ABDOMEN: Obese. EXTREMITIES: Without any edema. ASSESSMENT AND PLAN: 1. Acute hypoxic respiratory failure, possibly from mucus plugging. The patient underwent a bronchoscopy last admission, which grew gentamicin resistant pseudomonas. We will make sure that she is covered with Fortaz for the bacterial growth. 2. Elevated troponin, possibly from demand ischemia. She was seen by Cardiology, no new orders were given. 3. Chronic renal insufficiency from diabetic nephropathy. We will avoid too many diuretics. 4. Urinary tract infection with heavy gram-negative bacteria. Again, antibiotics have been ordered. 5. Obesity hypoventilation. Saturations remain fairly within normal limits. Discussed with Dr. Turner. The plan is to discharge her back to the detention in the morning. CESILIA SOLANO MD CM:PNTRANS [id number] CESILIA SOLANO MD 06/19/17 2249 interface
--- NOTE | ~2017-06-17 | PR ---
[place], [place] PROGRESS NOTE NAME: RUSS CULVER UNIT #: [id number] ROOM: [facility] DOCTOR: JET BHATIA MD,RAJVI BIRTHDATE: [birth year] DOS: 06/19/2017 PULMONARY FOLLOWUP SUBJECTIVE: She has been noted comfortable, still on mechanical ventilator. Arterial blood gases were done yesterday and were also ordered today for the assessment of ventilatory status and oxygenation. The patient does not wish to have arterial blood gases done, they have been canceled by the primary care physician. She was getting intravenous heparin for this patient as well as full therapeutic dose. She has not noted any symptoms of hemoptysis or any chest pain. She was given one dose of Lasix yesterday as well. OBJECTIVE: VITAL SIGNS: Show normal temperature, respiratory rate 14, heart rate of 68, blood pressure 110/60-100/58. Pulse oxygen saturation of the patient 40% oxygen 97% saturation. HEENT: Tracheostomy in place. NECK: Supple, short and obese. CARDIOVASCULAR: S1, S2 audible. LUNGS: Noted with [id number] decreased breath sounds without any wheezing or crackles at the present time. ABDOMEN: Noted severe obesity. EXTREMITIES: Show 1-2+ pitting edema. LABORATORY DATA: BMP this morning, BUN 51, creatinine 1.30. PTT was noted elevated at 14.9. The blood culture from 06/10/2017 the patient does not show any bacterial growth. Final culture results were pending. Chest x-ray this morning portable was done, a large pannus was covering half of the thorax, the finding would be noted suboptimal from the current chest x-ray. The tracheostomy noted in place upper portion of the lungs appear to be clear without any acute infiltration. The culture of the urine noted greater than 100,000 colony forming units of gram-negative bacilli. BMP this morning, BUN 51, creatinine 1.30. PTT for this patient noted 14.9. Culture of the bronchial washing of the patient from previous admission noted moderate growth of Pseudomonas aeruginosa on 06/01/2017. IMPRESSION: 1. The patient with acute on chronic hypoxic respiratory failure. 2. Acute tracheobronchitis Pseudomonas aeruginosa. 3. Edema of the lower extremities with acute congestive heart failure would be considered with partial improvement with the Lasix that was administered yesterday. PLAN OF MANAGEMENT: Ordered Lasix 40 mg for this patient to be given via the PEG tube daily. Continuation of the bronchodilators. She was started on ceftazidime based on the sensitivity results of the past cultures of the endotracheal aspirate bronchial washings. The organism were noted quite resistant. The only sensitivity was noted to the Zosyn and to ceftazidime. Continue to decrease the oxygen supplementation, maintain saturation of 92% greater. Usual care, other supportive therapy, plan of care. The assessment [place], [place] PROGRESS NOTE NAME: RUSS CULVER UNIT #: [id number] ROOM: [facility] DOCTOR: JET BHATIA MD,RAJIV BIRTHDATE: [birth year] and management was discussed with Dr. Sandi Lopes. Other usual care, plan of therapies. RAJIV CHAUDHARY MD CM:NIKKI [id number] RAJIV BHATIA MD 06/19/171809 interface
--- NOTE | ~2017-06-17 | CON ---
[place], [place] REPORT OF CONSULTATION NAME: RUSS CULVER UNIT #: [id number] ROOM: [facility] DOCTOR: JET BHATIA MD,RAJIV BIRTHDATE: [birth year] DOS: 06/18/2017 PULMONARY CONSULTATION, EVALUATION AND MANAGEMENT CONSULTATION REQUESTED BY: Dr. Sandi Lopes. REASON FOR CONSULTATION: For assessment of hypoxia with respiratory failure. HISTORY OF PRESENT ILLNESS: This is a 66-year-old female patient who has been long-term resident of [facility], ventilator dependency with multiple problems. The patient remains on mechanical ventilator, has been admitted in the hospital previously and treated for acute pneumonia and other problem. The patient was brought to the hospital from the alf, the patient noted with significant oxygen desaturation with pulse oxygen saturation was noted 70% oxygen. She was noted with symptoms of shortness of breath as well. She was sent to the Emergency Room for further assessment. She has been assessed in the Emergency Room. At that time, the oxygen saturation did improve to 95%. She has been admitted to the hospital for further medical management. She has not been able to give me any history. All the history is contained in this consultation is review of the past medical record, previous hospitalization as well as current documentation by the other physician and the nursing notes. She has not been reported any symptoms of hemoptysis. She has not reported any symptoms of chest pain previously. Currently, the patient has been noted sleepy, resting on the mechanical ventilator and unable to have any communication with verbal cues. PAST MEDICAL HISTORY: 1. Noted history of chronic hypercapnic hypoxic respiratory failure with ventilator dependency. 2. Centrilobular emphysema. 3. Gastroparesis. 4. Congestive heart failure, diastolic dysfunction. 5. Obstructive sleep apnea disorder. 6. Chronic tracheal stenosis. 7. History of Pickwickian syndrome. 8. Bilateral vocal cord paralysis. 9. Recurrent pneumonia. 10. Generalized anxiety disorder and depression. 11. History of gout. 12. Chronic severe morbid obesity. 13. History of urinary tract infection and Pseudomonas aeruginosa pneumonia. PAST SURGICAL HISTORY: Noted with: 1. Tracheostomy. 2. Past bronchoscopy which were noted therapeutic bronchoscopies. SOCIAL HISTORY: The patient is not , resident of [facility]. There was no history of alcohol use, illicit drug use or any tobacco use known at this time. She has been noted past tobacco use, which was discontinued many years ago. [place], [place] REPORT OF CONSULTATION NAME: RUSS CULVER UNIT #: [id number] ROOM: [facility] DOCTOR: JET BHATIA MD,RAJIV BIRTHDATE: [birth year] FAMILY HISTORY: Essentially noted noncontributory. MEDICATIONS: Current administered medications noted use of Levemir insulin, primidone, potassium chloride, magnesium oxide, lisinopril, omeprazole, Amaryl, levothyroxine, Pulmicort Respules, DuoNeb, lorazepam, and Klonopin. DRUG ALLERGY HISTORY: The patient was reported as allergy. 1. TETRACYCLINE causing vomiting. 2. SULFA DRUGS, which were described ineffective as per the patient, but noted as allergies. 3. PHENYLALANINE. 4. MEPIDENT causing anaphylactic shock. PHYSICAL EXAMINATION: GENERAL: This is a 66-year-old female currently noted on mechanical ventilator without any distress at this time. Height of 4 feet 9 inches, weight 286 pounds, BMI 64.3. VITAL SIGNS: Since hospitalization showed the temperature was noted normal in the past 24 hours, respiratory rate range between 18-20, heart rate of 68-102, blood pressure 141/82 and 133/96. Pulse oxygen saturation on 60% oxygen supplementation mechanical ventilator noted 98%, previously on 80% oxygen 100% saturation. Previously, the patient requires oxygen 30% on mechanical ventilator on her last discharge and that is her usual use of oxygen. HEENT: Head was atraumatic. NECK: Supple. Obese. Tracheostomy in place. CARDIOVASCULAR SYSTEM: S1, S2 is audible. LUNGS: The patient noted with general reduction in the breath sounds in the lungs bilaterally. ABDOMEN: Noted with severe morbid obesity. Bowel sounds present. EXTREMITIES: Showed 2+ pitting edema of the upper and lower extremities. LABORATORY DATA: CBC on 06/17/2017 shows WBC count 12.1, hemoglobin 13.1, hematocrit 41.6, platelet count 248,000. PT/PTT noted as INR normal. PTT normal. CMP on 06/17/2017, BUN 41, creatinine 1.47. ProBNP mildly elevated to 1683. The magnesium was normal. The remaining LFTs were normal. Arterial blood gas, pH of 7.43, pCO2 of 44, pO2 of 115 at that time noted in the Emergency Room. Venous duplex of the lower extremity was completed and does not show evidence of deep venous thrombosis. Troponin noted mildly elevated 0.180 the first one, the second noted 0.156. D-dimer was noted as normal. The chest x-ray ____ at this time. Lungs does not show any gross area of infiltration. IMPRESSION: 1. The patient who has been currently noted with acute on chronic severe hypoxic respiratory failure, most likely related to congestive heart failure with diastolic dysfunction. Underlying occult area of atelectasis cannot be completed because of limited assessment with the current chest x-ray and body habitus and rotational affect. 2. The patient with history of recurrent hospitalization. 3. History of Pickwickian syndrome and obstructive sleep apnea disorder. [place], [place] REPORT OF CONSULTATION NAME: RUSS CULVER UNIT #: [id number] ROOM: [facility] DOCTOR: RAJIV JONES MD BIRTHDATE: [birth year] 4. History of hypothyroidism, generalized anxiety disorder and multiple other medical problems. 5. History of type 2 diabetes mellitus. PLAN OF TREATMENT: Symptomatic management. The patient to be continued use of the bronchodilators to help mobilize secretions. Repeat another chest x-ray in the morning to reassess. Continue current mechanical ventilator setting with reduction of the oxygen supplementation based on the improvement in the oxygenation. Also, use the diuretics to help improve the edema. The patient with very close monitor of kidney function needs to be done. Repeat another arterial blood gas to reassess the improvement in the oxygenation from yesterday. Additional change in treatment continued to be made based on progression of the illness. At this time, the patient is not suspected with any pneumonia and would not requiring any antibiotics. Followup care and treatment. Usual medical management therapies. Thank you for allowing me to participate in the care of this patient. RAJIV CHAUDHARY MD CM:CONSTR:REPORT OF CONSULTATION 1432 06/19/17 0125 interface
[~2017-06-17 15:39] MED LIST changes: +ATIVAN0.5 MG PO; +HUMULIN R100 U/ML SC; +JANUVIA50 MG PO; -K-TAB20 MEQ PO; +POTASSIUM CHLO20 ME3 PO; +TAB-A-VITE1 EACH PO; -TAB-A-VITE1 TA1 PO; +TEMAZEPAM30 MG PO; +TRAMADOL HCL50 MG PO; +TYLENOL325 M2 PO
[2017-06-17 15:54] LABS: BASO % 0.2 % (0.0-1.0); EOS # 0.2 10*3/uL (0.0-0.4); EOS % 1.9 % (1.0-4.0); HEMATOCRIT 41.6 % (37.0-47.0); HEMOGLOBIN 13.1 g/dl (12.0-16.0); LYMPH # 1.3 10*3/uL (1.3-4.4); LYMPH % 10.2 % (27.0-41.0); MEAN CELL VOLUME 94.1 fl (81.0-99.0); MEAN CORPUSCULAR HGB 29.6 pg (27.0-31.0); MEAN CORPUSCULAR HGB CONC 31.5 g/dl (33.0-37.0); MEAN PLATELET VOLUME 11.5 fl (9.6-12.3); MONO # 0.8 10*3/uL (0.1-1.0); MONO % 6.1 % (3.0-9.0); NEUT % 81.3 % (47.0-73.0); PLATELET COUNT AUTOMATED 248 10*3/uL (130-400); RED BLOOD COUNT 4.42 10*6/uL (4.10-5.10); WHITE BLOOD COUNT 12.3 10*3/uL (4.8-10.8)
[2017-06-17 15:56] VITALS: BP 133/96
[2017-06-17 16:03] LABS: ACT PARTIAL THROMBO TIME 23.3 SECONDS (20.8-31.5)
[2017-06-17 16:09] LABS: ALBUMIN 3.3 gm/dl (3.1-4.5); CREATININE 1.47 mg/dL (0.55-1.02); MAGNESIUM 2.2 mg/dL (1.5-2.1); TOTAL PROTEIN 8.3 gm/dL (6.4-8.2)
[2017-06-17 16:11] LABS: TROPONIN I 0.111 ng/ml (<0.045)
[2017-06-17 16:27] VITALS: BP 142/67
[2017-06-17 16:34] LABS: ABG BASE EXCESS 5.1 mmol/L (-2.0-2.0); ABG HCO3 29.5 mmol/l (22-26); ABG O2 SATURATION 98.5 % (95-97); ARTERIAL BLOOD GAS PCO2 44.2 mmHg (35-45); ARTERIAL BLOOD GAS PH 7.439 (7.35-7.45)
[2017-06-17 18:39] VITALS: BP 155/82
[2017-06-17 19:00] VITALS: BP 155/72
[2017-06-17 20:22] VITALS: BP 141/84
[2017-06-17] MEDS ORDERED: NATURE'S BLEND F1 MG PO (21:17)
[2017-06-17] MEDS ORDERED: I-VITE TABLET1 EACH PO (21:18)
[2017-06-17] MEDS ORDERED: REMERON SOLTAB45 MG PO (21:25)
[2017-06-17] MEDS ORDERED: GLUCAGEN HYPOKIT1 MG IM (21:40)
[2017-06-17] MEDS ORDERED: HYDROXYZINE PAM50 MG PO (21:42)
[2017-06-17] MEDS ORDERED: KLONOPIN0.5 MG PO (21:43)
[2017-06-17] MEDS ORDERED: OXYGEN NAS (21:46)
[2017-06-17 23:41] LABS: BILIRUBIN NEGATIVE (NEGATIVE); BLOOD 2+ (NEGATIVE); CLARITY SL CLOUDY (CLEAR); COLOR YELLOW (YELLOW); GLUCOSE NEGATIVE (NEGATIVE); KETONE NEGATIVE (NEGATIVE); LEUKO ESTERASE 2+ (NEGATIVE); NITRITE POSITIVE (NEGATIVE); SPECIFIC GRAVITY 1.015 (1.005-1.030); UROBILINOGEN 0.2 E.U./dl (0.2-1.0)
[2017-06-17 23:51] LABS: BACTERIA 3+; EPITHELIAL CELLS 15-20; RBC 21-30 rbc/hpf (0-2); WBC TNTC wbc/hpf (0-5)
[2017-06-18 04:00] VITALS: BP 92/49
[2017-06-18 08:00] VITALS: BP 119/62
[2017-06-18 12:00] VITALS: BP 105/54
[2017-06-18 14:55] LABS: ABG HCO3 25.7 mmol/l (22-26); ABG O2 SATURATION 98.8 % (95-97); ARTERIAL BLOOD GAS PCO2 49.4 mmHg (35-45); ARTERIAL BLOOD GAS PH 7.337 (7.35-7.45)
[2017-06-18 16:00] VITALS: BP 116/59
[2017-06-18 20:00] VITALS: BP 113/65
[2017-06-19] VITALS: BP 100/58
[2017-06-19 07:42] LABS: CREATININE 1.3 mg/dL (0.55-1.02); POTASSIUM 3.9 mmol/L (3.5-5.1)
[2017-06-19 08:00] VITALS: BP 110/60
[2017-06-19 12:00] VITALS: BP 127/72
[2017-06-19 16:00] VITALS: BP 127/72
[2017-06-19 20:00] VITALS: BP 132/67
[2017-06-20] VITALS: BP 96/41
[2017-06-20 04:00] VITALS: BP 116/62
[2017-06-20] MEDS ORDERED: METOPROLOL SUCC25 M2 PO ×2 (07:14→07:20)
[2017-06-20] MEDS ORDERED: ATORVASTATIN CA40 M1 PO (07:14)
[2017-06-20 08:00] VITALS: BP 116/60
[2017-06-20] MEDS ORDERED: FORTAZ IJ (08:08)
== END 2017-06-20 10:00 | disposition home or self-care (01) | DRG 208 ==
LOC: ED 15:39 → ICCU 17:38 → EDHOLD 17:38 → ICCU 19:37
PROVIDERS: Emergency Medicine; Internal Medicine Critical Care Medicine; ADMIT Internal Medicine
PROC: 5A1945Z Respiratory Ventilation, 24-96 Consecutive Hours (ICD-10-PCS; principal; 2017-06-17)
DX: J96.21 Acute and chronic respiratory failure with hypoxia (principal); Z99.11 Dependence on respirator [ventilator] status; I24.8 Other forms of acute ischemic heart disease; I13.0 Hypertensive heart and chronic kidney disease with heart failure and stage 1 through stage 4 chronic kidney disease, or unspecified chronic kidney disease; N39.0 Urinary tract infection, site not specified; I50.30 Unspecified diastolic (congestive) heart failure; E66.2 Morbid (severe) obesity with alveolar hypoventilation; Z68.44 Body mass index [BMI] 60.0-69.9, adult; Z93.0 Tracheostomy status; F41.1 Generalized anxiety disorder; N18.3 Chronic kidney disease, stage 3 (moderate); E11.22 Type 2 diabetes mellitus with diabetic chronic kidney disease; G20 Parkinson's disease; J20.8 Acute bronchitis due to other specified organisms; B96.5 Pseudomonas (aeruginosa) (mallei) (pseudomallei) as the cause of diseases classified elsewhere; B96.89 Other specified bacterial agents as the cause of diseases classified elsewhere; J38.02 Paralysis of vocal cords and larynx, bilateral; F32.9 Major depressive disorder, single episode, unspecified; M10.9 Gout, unspecified; E03.9 Hypothyroidism, unspecified; J96.22 Acute and chronic respiratory failure with hypercapnia; Z16.29 Resistance to other single specified antibiotic; F41.0 Panic disorder [episodic paroxysmal anxiety]; Z79.899 Other long term (current) drug therapy; Z79.4 Long term (current) use of insulin; Z88.1 Allergy status to other antibiotic agents; Z88.2 Allergy status to sulfonamides; Z88.8 Allergy status to other drugs, medicaments and biological substances; Z91.048 Other nonmedicinal substance allergy status; Z82.49 Family history of ischemic heart disease and other diseases of the circulatory system

== ENCOUNTER → 2017-09-27 | Outpatient (CLI) | payer MEDICARE, OTHER ==
[~2017-09-27] MED LIST changes: +ATORVASTATIN CA40 M1 PO; +FORTAZ IJ; +GLUCAGEN HYPOKIT1 MG IM; +HYDROXYZINE PAM50 MG PO; +I-VITE TABLET1 EACH PO; +KLONOPIN0.5 MG PO; +METOPROLOL SUCC25 M2 PO; +OXYGEN NAS; +REMERON SOLTAB45 MG PO
== END | disposition home or self-care (01) ==
LOC: CT 03:31
DX: K31.89 Other diseases of stomach and duodenum (principal)

== ENCOUNTER 2018-01-02 10:41 | Emergency (ER) | payer MEDICARE, OTHER ==
[~2018-01-02] VITALS: Ht 165.1 cm; Wt 181.4 kg
[2018-01-02 11:08] LABS: BASO % 0.5 % (0.0-1.0); EOS # 0.2 10*3/uL (0.0-0.4); EOS % 1.9 % (1.0-4.0); HEMATOCRIT 46.7 % (37.0-47.0); LYMPH % 11.9 % (27.0-41.0); MEAN CELL VOLUME 94.9 fl (81.0-99.0); MEAN CORPUSCULAR HGB 28.5 pg (27.0-31.0); MONO # 0.5 10*3/uL (0.1-1.0); MONO % 5.6 % (3.0-9.0); NEUT % 79.9 % (47.0-73.0); PLATELET COUNT AUTOMATED 197 10*3/uL (130-400); RED BLOOD COUNT 4.92 10*6/uL (4.10-5.10); RED CELL DISTRI WIDTH 16.3 % (0-14.5); WHITE BLOOD COUNT 8.7 10*3/uL (4.8-10.8)
[2018-01-02 11:23] LABS: ALBUMIN 3.3 gm/dl (3.1-4.5); CREATININE 1.37 mg/dL (0.55-1.02); POTASSIUM 4.2 mmol/L (3.5-5.1); TOTAL PROTEIN 8.2 gm/dL (6.4-8.2)
[2018-01-02 12:55] VITALS: BP 105/61
== END 2018-01-02 13:30 | disposition other institution (70) ==
LOC: ED 10:41
PROVIDERS: Emergency Medicine
DX: R06.00 Dyspnea, unspecified (principal); I13.0 Hypertensive heart and chronic kidney disease with heart failure and stage 1 through stage 4 chronic kidney disease, or unspecified chronic kidney disease; E11.22 Type 2 diabetes mellitus with diabetic chronic kidney disease; N18.3 Chronic kidney disease, stage 3 (moderate); I50.9 Heart failure, unspecified; J44.9 Chronic obstructive pulmonary disease, unspecified; E66.9 Obesity, unspecified; Z87.01 Personal history of pneumonia (recurrent); Z79.899 Other long term (current) drug therapy; Z93.0 Tracheostomy status; Z79.4 Long term (current) use of insulin; Z88.5 Allergy status to narcotic agent; Z88.1 Allergy status to other antibiotic agents; Z88.8 Allergy status to other drugs, medicaments and biological substances

== ENCOUNTER 2018-04-02 00:16 | Inpatient (IN) | payer MEDICARE, OTHER ==
[~2018-04-02] VITALS: Ht 142.2 cm; Wt 142.1 kg
[2018-04-02] VITALS (7 sets, daily range): BP systolic 115–172; BP diastolic 60–98
--- NOTE | ~2018-04-02 | DS ---
[place], [place] DISCHARGE SUMMARY NAME: RUSS CULVER UNIT #: [id number] ROOM: [facility] DOCTOR: AIMEE GARCIA MD BIRTHDATE: [birth year] DOS: 04/05/2018 DISCHARGE DIAGNOSES: 1. Acute over chronic respiratory failure. 2. Acute exacerbation of chronic obstructive pulmonary disease. 3. Right upper lobe pneumonia. 4. Severe morbid obesity. 5. Tracheostomy tube placement. 6. Diabetic nephropathy with chronic kidney disease stage 3A. 7. Hypothyroidism. 8. Parkinson's disease. 9. Generalized anxiety disorder. 10. Gastroesophageal reflux disease and esophagitis. 11. Chronic diastolic type congestive heart failure. 12. Mixed hyperlipidemia. 13. Type 2 diabetes mellitus. 14. Chronic gouty arthritis. 15. Vitamin D deficiency. 16. Benign essential hypertension. HOSPITAL COURSE: The patient presented with increased shortness of breath, right upper lung pneumonia, acute over chronic respiratory failure and was treated with antibiotics, mechanical ventilation, oxygen, bronchodilators and her breathing has improved. Dr. Turner, the lunchroom monitor also followed her. The patient is chronically ventilator dependent with tracheostomy tube in place. No leukocytosis. The patient was treated with meropenem, but her latest sputum cultures grew resistant Pseudomonas aeruginosa, sensitive to Zosyn, which will be continued at half-way for 1 week. Obesity hypoventilation syndrome. The patient worked with Dietary. Type 2 diabetes mellitus. Blood sugar was monitored, treated and controlled and the patient was kept on no concentrated sweet diet. Diabetic nephropathy with chronic kidney disease stage 3A, stable. Hypothyroidism, replaced with thyroid supplements, which were continued. Parkinson's disease, treated with Sinemet. Some bilateral rib pains, apparently related to respiratory exertion from acute over chronic respiratory failure, asymptomatic now. Chronic generalized anxiety disorder, treated with lorazepam now as needed. GERD and esophagitis, asymptomatic with omeprazole. The patient has moderately severe protein-calorie malnutrition. LABORATORY DATA: Legionella titer is negative. Normal CBC. BUN and creatinine [place], [place] DISCHARGE SUMMARY NAME: RUSS CULVER UNIT #: [id number] ROOM: [facility] DOCTOR: AIMEE GARCIA MD BIRTHDATE: [birth year] 40 and 1.4. Albumin level of 2.6. The patient has resistant Pseudomonas aeruginosa growing from sputum cultures. CT scan of the chest is showing right upper lung pneumonia. DISCHARGE MANAGEMENT: IV Zosyn 4.5 grams every 8 hours for a week, lorazepam 0.5 mg every 8 hours p.r.n. for anxiety, nystatin swish and swallow 5 mL q.i.d. for 2 weeks, Tramadol 50 mg b.i.d. as needed for pain, Tylenol 1000 mg 3 times a day, DuoNeb every 4 hours, Pulmicort 0.5 mg b.i.d. with nebulizer, Sinemet 25/100 mg b.i.d., lisinopril 2.5 mg daily, allopurinol 100 mg daily, magnesium oxide 400 mg 3 times a day, furosemide 40 mg 3 times a day, repeat a basic metabolic profile in a week, levothyroxine 250 mcg daily, primidone 50 mg a day, Zoloft 100 mg a day, omeprazole 20 mg a day, potassium chloride 20 mEq daily, metoprolol 12.5 mg b.i.d., aspirin 81 mg a day, Lantus insulin 15 units daily and 30 units at bedtime. Oxygen titrate to keep pulse ox 90-96%. Ventilator settings are CMV, respiratory rate of 14, tidal volume of 550 mL, FiO2 of 35% with PEEP of 5. AIMEE GARCIA MD CM:RAJESH [id number] AIMEE GARCIA MD 04/05/18 4201 interface
--- NOTE | ~2018-04-02 | PR ---
[place], [place] PROGRESS NOTE NAME: RUSS CULVER UNIT #: [id number] ROOM: [facility] DOCTOR: JET BHATIA MD,RAJIV BIRTHDATE: [birth year] DOS: 04/03/2018 SUBJECTIVE: She was still noted with the pain, which is described in the anterior chest wall. She has been noted some cough and she remains on mechanical ventilator at the present time, which is chronic. She is still able to speak. The cultures of the endotracheal aspirate noted heavy growth of gram-negative bacilli, pending, identification and sensitivity at present time. The patient has not been reported any symptoms of nausea or vomiting. There was no diarrhea recorded. There were symptoms of any joint pain noted. Overall generalized pain, the patient has been noted, which is chronic, treated with the pain medication. The patient stated the pain has not been noted, well controlled in the left chest wall. She was ordered CT scan of the chest by Dr. Sandi Lopes to assess the presence of pneumonia since the chest x-ray currently noted with limited study with large body habitus. REVIEW OF SYSTEMS: Remaining are limited, but noted negative. PHYSICAL EXAMINATION: VITAL SIGNS: Shows a normal temperature, respiratory rate 20, heart rate 73, blood pressure 116/58 this morning. The pulse oxygen saturation 35% oxygen with assist control, volume control, mechanical ventilation noted, 98% pulse ox saturation at the bedside. HEENT: Head was atraumatic. Eyes nonicterus. NECK: Very short and obese. Tracheostomy remains in place and intact. CARDIOVASCULAR: S1, S2 audible. LUNGS: The patient noted without any wheezing or crackles, limited auscultation. GENERAL: The patient is morbidly obese, body habitus. ABDOMEN: Noted soft with morbid obesity. Bowel sounds present. EXTREMITIES: The patient was noted without any acute edema, visible skin was noted with some areas of what appears like redness in the anterior chest wall. MUSCULOSKELETAL: The patient not noted with any acute deformities at this time sent to assess the patient and bedbound status. LABORATORY DATA: CBC of the patient this morning, WBC count normal, hemoglobin 12.3, hematocrit 41.8, platelet count normal. CMP this morning for the patient's glucose 71, BUN 30, creatinine 1.43. Albumin 2.8. The culture of the endotracheal, aspiration was noted to have a growth of gram-negative bacilli at this time. Normal dheeraj was also noted with that bacterial growths. These final culture sensitivities were pending at the present time. Chest x-ray, 1 view, that was done this morning to reassess limited study for patient, questionable pneumonia in the left lower lobe was still suspected. IMPRESSION: 1. The patient with suspected acute pneumonia, gram-negative infection versus acute bronchitis. 2. Chronic, stable hypoxic respiratory failure with ventilator dependency as well. 3. Bilateral vocal cord paralysis. 4. Obstructive sleep apnea disorder. [place], [place] PROGRESS NOTE NAME: RUSS CULVER UNIT #: [id number] ROOM: [facility] DOCTOR: JET BHATIA MD,RAJIV BIRTHDATE: [birth year] 5. Pickwickian syndrome. 6. ____ obesity. 7. Acute congestive heart failure, diastolic function noted with resolution of pulmonary venous congestion, current chest x-ray, edema of the lower extremities. PLAN OF THERAPY: Technically, the CT scan of the chest might not need to be done. However, the attempt will be made for this patient. She will be given Dilaudid 1 dose of 0.5 mg prior to the patient taken for the CT scan to improve any pain she described in the chest with the movement. Bronchodilator to be continued as previously. Nutritional support as previously will be continued. Other supportive therapy, plan of management and care plan. The doxycycline has been discontinued for this patient at the present time with possible allergy causing skin rash. Previously, the patient has been noted with just stomach upset, but there was no rash with the doxycycline. Meropenem will be continued as the antibiotic as the patient has gram-negative infection. Monitor kidney functions closely as well. RAJIV CHAUDHARY MD CM:PNTRANS [id number] RAJIV BHATIA MD 04/03/18 1351 interface
--- NOTE | ~2018-04-02 | PR ---
[place], [place] PROGRESS NOTE NAME: RUSS CULVER UNIT #: [id number] ROOM: [facility] DOCTOR: JET BHATIA MD,RAJIV BIRTHDATE: [birth year] DOS: 04/04/2018 PULMONARY PROGRESS NOTE SUBJECTIVE: The patient remains on mechanical ventilator as previously without changes. She is still complaining of pain, which she described in the lower portion of the chest wall currently on today's assessment. She denies symptoms of nausea, vomiting, or abdominal pain. She has been eating food without difficulty with current mechanical ventilation. She has not been reported any symptoms of hemoptysis. There are no symptoms of abdominal pain reported. No symptoms of pain of the lower extremities as well. Remaining systems review is limited for the patient with current tracheostomy and use of mechanical ventilation. OBJECTIVE: VITAL SIGNS: Which have been recorded showed normal temperature, respiratory rate 20, heart rate 79, blood pressure 149/76-127/67. Pulse oxygen saturation recorded as 95% saturation with 30% oxygen, mechanical ventilator. HEENT: Head was atraumatic. Eyes nonicterus. NECK: Supple, very short obese neck. Tracheostomy in place and intact. CARDIOVASCULAR: S1, S2 audible. LUNGS: Noted without any wheezing or crackles at this time. ABDOMEN: Soft, nontender. EXTREMITIES: Without any acute edema. MUSCULOSKELETAL: Noted without any acute deformities or lesions. LABORATORY DATA: CBC this morning: WBC count normal 9.4, hemoglobin 11.9, remaining CBC is normal. CMP this morning: BUN 38, creatinine 1.27, glucose of 55. Albumin is 2.6. Culture noted with heavy growth of Gram-negative bacilli, Pseudomonas aeruginosa noted, sensitive to gentamicin, tobramycin and IV Zosyn, resistance ____ to other antibiotics ____ sensitivities. IMAGING DATA: CT scan of the chest that was done yesterday was reviewed, limited study because of lack of IV contrast, the patient's body habitus noted with consolidation, which was noted moderate size in the right upper lobe. IMPRESSION: 1. The patient who has been currently admitted to the hospital noted with acute Pseudomonas aeruginosa pneumonia in the right upper lobe. 2. The patient with intermittent edema of the lower extremities. 3. Severe morbid obesity. 4. Chronic ventilator support with dependency on mechanical ventilator with the use of tracheostomy. PLAN OF THERAPY: The antibiotic was changed to IV Zosyn 4.5 grams every 8 hours for the medical management of pneumonia, and the meropenem was discontinued but not yet as it was not noted sensitive on the current panel for Pseudomonas aeruginosa management. Continuation of nutritional support as previously. Continue mechanical ventilator support as previously as well. Usual care, other supportive therapy, plan of management and treatment. The patient has been [place], [place] PROGRESS NOTE NAME: RUSS CULVER UNIT #: [id number] ROOM: [facility] DOCTOR: JET BHATIA MD,RAJIV BIRTHDATE: [birth year] offered for transfer to the long-term acute care facility, but the patient is refusing to do so. All other plan of management previously ongoing will be continued. The pain which was reported by the patient is most likely musculoskeletal and not resulting from any pulmonary infiltration or other abnormalities. RAJIV CHAUDHARY MD CM:NIKKI [id number] [id number] RAJIV BHATIA MD 04/04/18 1308 interface
--- NOTE | ~2018-04-02 | WRIGHTHP ---
[place], [place] PATIENT HISTORY AND PHYSICAL EXAM NAME: RUSS CULVER [facility] #: [id number] UNIT #: [id number] ROOM: [facility] DOCTOR: AIMEE GARCIA MD BIRTHDATE: [birth year] DOS: 04/02/2018 HISTORY OF PRESENT ILLNESS: The patient is a 67-year-old female with a past medical history of: 1. Morbid obesity. 2. Chronic respiratory failure and tracheostomy. 3. Obesity hypoventilation syndrome. 4. Benign essential hypertension. 5. Diastolic type congestive heart failure, chronic. 6. Generalized anxiety disorder. 7. Chronic kidney disease stage 3. 8. Mixed hyperlipidemia. 9. Gastroesophageal reflux disease and esophagitis. 10. Type 2 diabetes mellitus. 11. Hypothyroidism. 12. Chronic gouty arthritis. 13. Vitamin D deficiency. 14. Parkinson's disease. The patient presented to the Emergency Department with increasing complaints of shortness of breath. The patient having some left rib pains and a significant cough. In the Emergency Department, the patient was found to be in respiratory failure, acute over chronic respiratory failure and recommended for admission to the ICU on mechanical ventilation. After admission, the patient is complaining of some pains with breathing. REVIEW OF SYSTEMS: LUNGS: Increasing shortness of breath. GASTROINTESTINAL: No nausea, vomiting, diarrhea or constipation. CARDIOVASCULAR: No chest pains or palpitations. FAMILY HISTORY: Noncontributory. 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 Denies smoking cigarettes, alcohol and drug abuse. FAMILY HISTORY: Noncontributory. HOME MEDICATIONS: Potassium, omeprazole, metoprolol, Zoloft, primidone, levothyroxine, latanoprost eyedrops, allopurinol, lisinopril, insulin, Sinemet, tramadol, furosemide, lorazepam. PHYSICAL EXAMINATION: GENERAL: Alert, oriented x 3, morbidly obese with generalized weakness. Tracheostomy tube in place. Lungs show decreased breath sounds all over. Chronic 3+ leg and pedal edema. LABORATORY DATA: BUN and creatinine 26 and 1.4. ProBNP elevated to 8000. Troponin level elevated to 0.054. Lactic acid level normal. INR 1. Chest x-ray showing mild pulmonary vascular congestion, small bilateral pleural [place], [place] PATIENT HISTORY AND PHYSICAL EXAM [id number] UNIT #: [id number] ROOM: [facility] DOCTOR: JOSE GUZMAN,AIMEE Parada BIRTHDATE: [birth year] effusions and developing left basilar consolidation. No leukocytosis. IMPRESSION: 1. The patient with left lower lobe pneumonia, increasing shortness of breath and CHF with acute over chronic respiratory failure, to be treated with bronchodilators, DuoNeb, oxygen, antibiotics and diuresis. The patient will be followed by cleaners, Dr. Turner and women's garment fitter, Dr. Oliver. The patient has been admitted to the ICU. 2. Acute exacerbation of chronic obstructive pulmonary disease, to be treated with bronchodilators, corticosteroids, oxygen, and antibiotics. 3. Left lower lobe pneumonia, to be followed by Dr. Turner and treated with antibiotics, bronchodilators, oxygen. 4. Morbid obesity. The patient to work with dietary. 5. Type 2 diabetes mellitus. Blood sugars to be monitored and treated. The patient to be kept on a no concentrated sweet diet. 6. Diabetic nephropathy and chronic kidney disease stage 3A, to be followed, blood sugars to be treated. 7. Hypothyroidism, replaced with thyroid supplements. 8. Parkinson's disease, treated with Sinemet, to be continued. 9. Generalized anxiety disorder, treated with buspirone and lorazepam, to be treated with Klonopin. 10. Gastroesophageal reflux disease and esophagitis, treated with omeprazole. AIMEE GARCIA MD CM:HISPHYS:PATIENT HISTORY AND PHYSICAL EXAMINATION 1020 [id number] AIMEE GARCIA MD 04/02/18 1158 interface
--- NOTE | ~2018-04-02 | PR ---
[place], [place] PROGRESS NOTE [id number] UNIT #: [id number] ROOM: [facility] DOCTOR: AIMEE GARCIA MD BIRTHDATE: [birth year] DOS: 04/03/2018 SUBJECTIVE: The patient is still somewhat short of breath, had developed a rash, which resolved after she was given Solu-Medrol and after the doxycycline was stopped. PHYSICAL EXAMINATION: VITAL SIGNS: Blood pressure 151/65, heart rate 89 beats per minute, breathing 18 times per minute, temperature 98 degrees Fahrenheit. GENERAL: The patient has generalized weakness and morbid obesity and tracheostomy tube in place. IMPRESSION: 1. Right upper lobe pneumonia with acute over chronic respiratory failure, being treated with antibiotics. Dr. Turner is following. The patient on bronchodilators and antibiotics. No leukocytosis. 2. Acute exacerbation of significant underlying chronic obstructive pulmonary disease with morbid obesity and obesity hypoventilation syndrome. The patient remains on mechanical ventilation. She already has a tracheostomy tube in place, being treated with bronchodilators, corticosteroids, and antibiotics. 3. Morbid obesity. The patient working with dietary. 4. Type 2 diabetes mellitus. Blood sugars being monitored and treated and diet controlled. 5. Diabetic nephropathy with chronic kidney disease stage 3A. 6. Hypothyroidism, replaced with supplements. 7. Parkinson's disease treated with Sinemet. 8. Generalized anxiety disorder treated with buspirone, lorazepam. Klonopin was stopped. 9. Gastroesophageal reflux disease and esophagitis, asymptomatic with omeprazole. AIMEE GARCIA MD CM:PNTRANS 1620 AIMEE GARCIA MD 04/03/18 2307 interface
--- NOTE | ~2018-04-02 | CON ---
[place], [place] REPORT OF CONSULTATION NAME: RUSS CULVER UNIT #: [id number] ROOM: [facility] DOCTOR: RADHA PERES MD BIRTHDATE: [birth year] DOS: 04/02/2018 CHIEF COMPLAINT: Dyspnea, elevated troponin. HISTORY OF PRESENT ILLNESS: This is one of several hospital admissions for the patient, a 67-year-old woman, with a history of morbid obesity, obstructive lung disease and chronic respiratory failure. She does have obesity hypoventilation syndrome and required multiple intubations. She finally did undergo tracheostomy and currently is chronically on a ventilator through the tracheostomy. She is able to phonate around the tracheostomy and can communicate, but has to have the ventilator for chronic support. She denies any history of myocardial infarction, but has had episodes of chest pain. We evaluated her in 04/2017 when she presented with hypoxemia and increased oxygen demands. On that admission, she did have mild elevation in troponin. She had no electrocardiographic changes and her echocardiogram showed normal wall motion. We presumed that she had a type 2 myocardial injury due to hypoxemia, increased work of breathing, etc. She was hospitalized again in 05/2017 with similar concerns and once again was felt to have a type 2 myocardial injury. She has been residing in a halfway since then. She presents to the hospital on this occasion with worsening shortness of breath and some rib pain along with a significant cough and dyspnea. In the Emergency Room, she was found to have acute on chronic respiratory failure and therefore was hospitalized for further management. PAST MEDICAL HISTORY: Includes: 1. Chronic hypercapnic and hypoxemic respiratory failure. The patient is ventilator dependent through tracheostomy. 2. History of central lobular emphysema. 3. History of gastroparesis. 4. History of diastolic heart failure. 5. History of Pickwickian syndrome. 6. 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 7. Recurrent pneumonia. 8. Anxiety and depression. 9. Morbid obesity with body mass index over 70. 10. History of recurrent urinary tract infections. 11. Echocardiogram on 05/30/2017 showed normal left ventricular size with mild concentric left ventricular hypertrophy, normal left ventricular regional wall motion and systolic function with grade 2 diastolic relaxation abnormalities, dilated left atrium, but no significant valve disease. 12. Hospitalization 04/2017 with elevated troponin, felt secondary to demand ischemia. 13. Hospitalization 05/2017 with increased respiratory distress and elevated troponin, again felt to be due to demand ischemia (type 2 myocardial injury. MEDICATIONS: Prior to admission, budesonide 0.5 mg b.i.d. by inhalation, Xopenex by inhaler q.6h., Xalatan eyedrops at bedtime, acetaminophen p.r.n., allopurinol 100 mg daily, atorvastatin 40 mg daily, buspirone 10 mg t.i.d., carbidopa with levodopa 25/100 one tablet b.i.d., cholecalciferol 4000 units [place], [place] REPORT OF CONSULTATION NAME: RUSS CULVER UNIT #: [id number] ROOM: [facility] DOCTOR: RADHA PERES MD BIRTHDATE: [birth year] daily, clonazepam 0.5 mg q.i.d., folic acid 1 mg daily, furosemide 40 mg p.o. daily, levothyroxine 250 mcg at bedtime, lisinopril 2.5 mg daily, lorazepam 0.5 mg q. 6 hours, magnesium oxide 400 mg t.i.d., metoprolol 12.5 mg daily, multivitamin daily at bedtime, omeprazole 20 mg daily, potassium 20 mEq daily, primidone 50 mg at bedtime, sertraline 100 mg at bedtime, tramadol 50 mg q.12h., and Lantus insulin 50 units b.i.d. ALLERGIES: The patient lists allergies to MEPERIDINE, PHENYLALANINE, TETRACYCLINE, TAPE, SULFAMETHOXAZOLE AND TRIMETHOPRIM. FAMILY HISTORY: Negative for early coronary artery disease. REVIEW OF SYSTEMS: The patient denies diplopia or loss of vision. She is generally weak, but denies focal weakness. She denies nausea or vomiting. She denies fevers, but does have chills. She has had a mildly productive cough. She denies hemoptysis or hematemesis. She denies change in bowel or bladder habits. She denies blood in her stools or urine. She denies any skin rashes. She denies any significant peripheral edema. The remainder of the review of systems is negative except as noted above. SOCIAL HISTORY: The patient is a resident of a halfway. She does not consume alcohol. She has a history of tobacco abuse in the past, but has not smoked in many years. PHYSICAL EXAMINATION: GENERAL: The patient is an obese white female who is awake, alert and oriented. VITAL SIGNS: Pulse is 86 and regular, blood pressure is 140/60. She is afebrile. She weighs 142.1 kg and his body mass index is 70.3. HEENT: Normocephalic and atraumatic. Extraocular muscles are intact. Sclerae are clear. Pupils equal, round and react to light. The oral mucosa is moist. Tongue is midline. NECK: Supple. She has no obvious jugular distention. Carotids are full without bruits. Respirations are per ventilator. She does have scattered wheezes bilaterally with expiratory prolongation. I did not hear any obvious rales. She has no chest wall tenderness. CARDIOVASCULAR: Heart tones are distant. No obvious murmurs or rubs are heard. She has an S4 gallop, and no S3. There is obvious. The PMI could not be felt. ABDOMEN: Soft and normally active without masses, organomegaly or bruits. EXTREMITIES: Showed 1+ edema bilaterally. Pedal pulses are diminished bilaterally. LABORATORY DATA: Her chest x-ray shows poor inspiration. There is mild pulmonary vascular congestion with small bilateral effusions and possible left basal consolidation. Her electrocardiogram shows sinus rhythm with nonspecific ST and T-wave changes. I reviewed an electrocardiogram from 06/17/2017 and there is no significant change between the two. Hemoglobin is 13.1, hematocrit 44.0. White count 10,400, platelet count 193,000. INR 1.0. Sodium 143, potassium 3.9, BUN 26, creatinine 1.46. Baseline lactic acid 1.4, single troponin level is 0.054. [place], [place] REPORT OF CONSULTATION NAME: RUSS CULVER UNIT #: [id number] ROOM: [facility] DOCTOR: RADHA PERES MD BIRTHDATE: [birth year] IMPRESSION: 1. Acute on chronic respiratory failure. 2. Morbid obesity. 3. Pickwickian syndrome. 4. Mild elevation in troponin, most likely due to type 2 myocardial injury. 5. Type 2 diabetes mellitus, on insulin. 6. History of diastolic congestive heart failure. PLAN: The patient's presentation does not suggest an acute coronary event. In any case, her poor performance status, morbid obesity and debility make her very poor candidate for any invasive or advanced cardiac diagnostic procedures. We will continue to follow her troponin levels and check an echocardiogram for any change in LV function, but we will plan on treating her conservatively and empirically. For now, I will increase her diuresis and increase her beta aurora therapy. We will continue to follow her with her other physicians and I thank Dr. Cadena for asking our advice regarding her care. RADHA PERES MD CM:CONSTR:REPORT OF CONSULTATION 1454 04/03/18 0128 interface
--- NOTE | ~2018-04-02 | PR ---
[place], [place] PROGRESS NOTE NAME: RUSS CULVER UNIT #: [id number] ROOM: [facility] DOCTOR: RAJIV JONES MD BIRTHDATE: [birth year] DOS: 04/05/2018 PULMONARY PROGRESS NOTE SUBJECTIVE: She remains on mechanical ventilator, comfortable at this time without any acute distress. The patient has not reported symptoms of chest pain or any hemoptysis. The patient denies any knee pain, but still noted pain, which the patient describes in the lower portion of the rib cage. OBJECTIVE: VITAL SIGNS: For the patient which were recorded showed normal temperature, respiratory rate 20, heart rate 71, blood pressure 140/62. Pulse ox saturation on 35% oxygen supplementation, assist control, volume control, which is a chronic vent setting for the patient, was noted 98% saturation. HEENT: Shows head was atraumatic, tracheostomy in place. NECK: Short and obese. CARDIOVASCULAR: S1, S2 audible. LUNGS: Noted without any wheeze or crackle, limited exam. ABDOMEN: Soft, morbidly obese. EXTREMITIES: The patient has chronic changes with resolving edema. LABORATORY DATA: The patient's CBC was noted normal. CMP of the patient is normal, BUN of 40, creatinine 1.37. The culture as previously noted, Pseudomonas aeruginosa, currently treated with IV Zosyn. IMPRESSION: 1. The patient with acute pneumonia in the right upper lobe, which has been treated with intravenous antibiotic, IV Zosyn based on sensitivity results. 2. Chronic respiratory failure with ventilator dependency for this patient as well. 3. Severe morbid obesity as well. PLAN OF MANAGEMENT: No changes from the pulmonary standpoint. The patient could be discharged to the nursing facility for further continued treatment of acute pneumonia, minimum of 10 days therapy. Continuation of other supportive plan of management and care plan and therapy. Usual care, other supportive plan of therapy, care, and plan of management. [place], [place] PROGRESS NOTE NAME: RUSS CULVER UNIT #: [id number] ROOM: [facility] DOCTOR: RAJIV JONES MD BIRTHDATE: [birth year] RAJIV CHAUDHARY MD CM:PNTRANS 1056 RAJIV BHATIA MD 04/05/18 1107 interface
--- NOTE | ~2018-04-02 | PR ---
[place], [place] PROGRESS NOTE NAME: RUSS CULVER UNIT #: [id number] [facility]OM: [facility] DOCTOR: RADHA PERES MD BIRTHDATE: [birth year] DOS: 04/04/2018 SUBJECTIVE: The patient was seen at her bedside today 04/04/2018 in the intensive care unit. She remains awake and alert. She states that she occasionally does have some difficulty breathing. A CAT scan of her chest done yesterday shows that she has a right upper lobe pneumonia. The heart size was normal. There was no pleural effusion. She did have an echocardiogram on 04/03/2018 as well, which showed normal left ventricular size, wall motion and overall systolic function with an ejection fraction of 55%. She does have stage 2 diastolic relaxation abnormalities with a dilated left atrium. No obvious valve abnormality was seen, but the study was technically difficult. PHYSICAL EXAMINATION: VITAL SIGNS: Today, her pulse is 62 and regular, blood pressure is 107/50. She is afebrile. She weighs 142.1 kilograms with a body mass index of 70.3. NECK: Supple. She has a tracheostomy in place. LUNGS: Respirations are unlabored, but she is on a ventilator. She has decreased breath sounds bilaterally, especially on the right. HEART: Has a regular rhythm with distant tones, no murmurs or gallops could be heard. ABDOMEN: Obese, but otherwise benign. EXTREMITIES: Showed 1+ edema bilaterally. LABORATORY DATA: Hemoglobin is 11.9 with hematocrit 38.9, white cells 9400 and 199,000 platelets present. Sodium is 143, potassium 3.8, BUN 38, creatinine 1.27. IMPRESSION: 1. Acute on chronic respiratory failure. 2. Morbid obesity. 3. Pickwickian syndrome. 4. Mild elevation in troponin, most likely due to type 2 myocardial injury (demand ischemia). 5. Echocardiogram 04/03/2018 demonstrated normal left ventricular size, wall motion and function with ejection fraction of 55%. 6. Type 2 diabetes mellitus, on insulin. 7. History of diastolic congestive heart failure. Echocardiogram 04/03/2018 did show stage 2 diastolic dysfunction. PLAN: The patient appears to be hemodynamically stable. She is being treated for her pneumonia. No other cardiac evaluation is planned and no change in her therapy is indicated at this time. Cardiology will sign off, but we will remain available to see her if requested and we thank Dr. Cadena for asking our advice regarding her care. [place], [place] PROGRESS NOTE NAME: RUSS CULVER UNIT #: [id number] [facility]OM: [facility] DOCTOR: RADHA PERES MD BIRTHDATE: [birth year] RADHA PERES MD CM:PNTRANS [id number] RADHA PERES MD 04/04/18 1408 interface
--- NOTE | ~2018-04-02 | PR ---
[place], [place] PROGRESS NOTE NAME: RUSS CULVER UNIT #: [id number] ROOM: [facility] DOCTOR: AIMEE GARCIA MD BIRTHDATE: [birth year] DOS: 04/04/2018 SUBJECTIVE: The patient is breathing better, also starting to feel better, although she continues to complain of some rib pain with breathing and the lung pains with breathing. OBJECTIVE: VITAL SIGNS: Blood pressure 107/50, heart rate of 62 beats per minute, breathing 18 times per minute, temperature 98.4 degrees Fahrenheit. GENERAL APPEARANCE: The patient is alert and oriented x 3, in no visible distress. HEENT AND NECK: Exam within normal limits. CARDIOVASCULAR SYSTEM: Heart rate is regular in rate and rhythm. S1 and S2 normally audible. LUNGS: Clear to auscultation. ABDOMEN: Soft, nontender. No obvious organomegaly. Bowel sounds are present. EXTREMITIES: Without significant cyanosis or edema. Generalized weakness and morbid obesity and disability with tracheostomy tube in place. IMPRESSION AND PLAN: 1. The patient with acute over chronic respiratory failure with obesity, hypoventilation syndrome, tracheostomy tube in place and pneumonia, clinically improving with treatment with antibiotics, breathing treatments, oxygen. 2. Right upper lung pneumonia, being treated with antibiotics. The patient being followed by research and evaluation manager, Dr. Turner. 3. Acute exacerbation of chronic obstructive pulmonary disease, being treated and improving symptomatically. Patient on mechanical ventilation. She already has a tracheostomy tube. 4. Diabetic nephropathy and chronic kidney disease stage 3A, stable. 5. Hypothyroidism. The patient remains on levothyroxine. 6. Parkinson's disease, treated with Sinemet. Generalized weakness and adult failure to thrive along with morbid obesity. 7. Morbid obesity. The patient working with dietary. 8. Generalized anxiety disorder treated with buspirone and lorazepam. 9. Gastroesophageal reflux disease and esophagitis, asymptomatic with omeprazole. Once cleared by Dr. Turner, the patient can be discharged back to custodial. The patient refused placement to an LTAC facility. [place], [place] PROGRESS NOTE NAME: RUSS CULVER UNIT #: [id number] ROOM: [facility] DOCTOR: AIMEE GARCIA MD BIRTHDATE: [birth year] AIMEE GARCIA MD CM:PNTRANS [id number] AIMEE GARCIA MD 04/05/18 0609 interface
--- NOTE | ~2018-04-02 | CON ---
[place], [place] REPORT OF CONSULTATION NAME: RUSS CULVER UNIT #: [id number] ROOM: [facility] DOCTOR: JET BHATIA MD,RAJIV BIRTHDATE: [birth year] DOS: 04/02/2018 PULMONARY CONSULTATION, EVALUATION, AND MANAGEMENT CONSULTATION REQUESTED BY: Jose Cadena MD. REASON FOR CONSULTATION: For assessment of the acute pneumonia. HISTORY OF PRESENT ILLNESS: A 67-year-old white female patient, long-term vent dependency, still able to speak and eat with the permanent tracheostomy and mechanical ventilator support. She resides in the [facility], was brought to the hospital as she has been noted with increasing pain, which was described with the movement in the lower anterior chest wall. The pain has been noted with the movement. She denies symptoms of chest trauma. She denies symptoms of sputum expectoration. She has been noted coughing at time. She has not been noted copious amount of any secretion production from the tracheostomy. She has not reported any symptoms of wheezing. REVIEW OF SYSTEMS: Limited because of the patient's current mechanical ventilation. CONSTITUTIONAL: The patient was reported symptoms of fatigue, does not remember any fever. EYES: Denies any burning, redness, or tenderness. EAR, NOSE, AND THROAT SYMPTOMS: No sore throat. She has permanent tracheostomy. CARDIOVASCULAR SYSTEM: Chronic edema of the lower extremity noted at times. GASTROINTESTINAL SYMPTOMS: No dysphagia, nausea, vomiting, diarrhea, abdominal pain, hematemesis, melena, or hematochezia. SKIN: Denies abnormal lesions or rashes. CENTRAL NERVOUS SYSTEM: The patient noted without any new changes. Chronic bedbound status. PAST MEDICAL HISTORY: Known for this patient with: 1. Long-term ventilatory support with history of bilateral vocal cord paralysis. 2. Previous history of pneumonias in the past for gram-negative and gram-positive. 3. COPD. 4. Gastroparesis. 5. Congestive heart failure, diastolic dysfunction. 6. Obstructive sleep apnea disorder. 7. Chronic hypercapnic respiratory failure. 8. Pickwickian syndrome. 9. Bilateral vocal cord paralysis. 10. Generalized anxiety disorder and depression. 11. History of gout. 12. Severe morbid obesity. PAST SURGICAL HISTORY: 1. Tracheostomy. [place], [place] REPORT OF CONSULTATION NAME: RUSS CULVER UNIT #: [id number] ROOM: [facility] DOCTOR: JET BHATIA MD,RAJIV BIRTHDATE: [birth year] 2. Past therapeutic bronchoscopies. SOCIAL HISTORY: The patient is not , resident of [facility]. There was no history of alcohol use or illicit drug use. Tobacco use was known. FAMILY HISTORY: Noted as unknown. PHYSICAL EXAMINATION: GENERAL: This is a 67-year-old white female who has been noted awake and alert at this time, receiving assist control, volume control, mechanical ventilation, able to speak with pauses. No acute respiratory distress noted. Height recorded on current admission as 4 feet 8 inches, weight of 213 pounds, and BMI 70. VITAL SIGNS: Temperature noted as 99.3 degrees Fahrenheit, normal temperature; respiratory rate 20-17, heart rate of 86-111, and blood pressure 140/60-115/87. The pulse oxygen saturation with the mechanical ventilation is 99% saturation on 40% oxygen, tidal volume of 550 mL with respiratory rate of 12. HEENT: On examination, chronic severe obesity. NECK: Supple, short and obese, tracheostomy in place without signs of active infection at the skin. CARDIOVASCULAR: S1, S2 is audible. LUNGS: The patient was noted without any wheezing or crackles at this time. Breaths are noted mildly diminished bilaterally, limited assessment to be done because she has decreased mobility. ABDOMEN: Noted severe morbid obesity. Bowel sounds present. EXTREMITIES: The patient noted as a chronic obesity with mild edema of the lower extremities. MUSCULOSKELETAL: Without any acute deformities. LABORATORY DATA: CBC on 04/02/2018, WBC count normal, hemoglobin and hematocrit normal, and platelet count was normal. The arterial blood gas of the patient, pH of 7.40, pCO2 of 44, and pO2 131 on 03/28/2018. PT and INR noted as 1.0. The lactic acid 1.4 this morning as well. CMP of the patient of 04/02/2018, BUN 26, creatinine 1.46, and glucose of 146. The endotracheal aspirate Gram stain noted many white blood cells, moderate epithelial cells, moderate gram-positive bacilli, and moderate gram-negative bacilli. Cultures were pending at this time. The chest x-ray, extremely limited study due to the patient's current body habitus. The patient was noted with increased interstitial marking noted with possibility of small pleural fluid, possibility of infiltration left lower lobe cannot be excluded. IMPRESSION: 1. The patient who has been currently admitted to the hospital was noted with acute pneumonia suspected in the left lower lobe secondary to aspiration with chronic ventilatory dependence and acute chronic respiratory failure. The patient is on ventilator support, remained stable. 2. The patient with severe morbid obesity, BMI of 70. 3. Obstructive sleep apnea disorder and history of bilateral vocal cord paralysis [place], [place] REPORT OF CONSULTATION NAME: RUSS CULVER UNIT #: [id number] ROOM: [facility] DOCTOR: RAJIV JONES MD BIRTHDATE: [birth year] 4. The patient with history of congestive heart failure, diastolic dysfunction with mild edema with mild acute component of congestive heart failure was also noted on this admission as well. 5. Pain in the chest, most likely related to current acute pneumonia. PLAN OF MANAGEMENT: The patient was started on doxycycline and the Rocephin at this time. The Rocephin essentially will be changed to the coverage for Pseudomonas aeruginosa with use of the cefepime. The culture will be closely monitored based on the current Gram stain. Initial change in treatment will be done for the patient based on progression of the illness. Followup chest x-ray will be done in the next couple of days as the progression of the acute pneumonia. Another chest x-ray will be done portable in the morning as well. Continue mechanical ventilatory support and close aspiration precautions. Usual care, other supportive therapy, plan of management, and care plan. Usual treatment and other plan of care as well. Other supportive therapy, plan of management, and care. Use of the bronchodilator continued to help mobilize secretions as well. Diuretics could be given, at least one dose of Lasix will be ordered intravenously today to help improve the congestive heart failure. Repeat labs in the morning was ordered as well. Thanks for allowing me to participate in the care of this patient. RAJIV CHAUDHARY MD CM:CONSTR:REPORT OF CONSULTATION 1427 04/03/18 0055 interface
[2018-04-02 00:52] LABS: BASO % 0.4 % (0.0-1.0); EOS # 0.2 10*3/uL (0.0-0.4); EOS % 2.1 % (1.0-4.0); HEMOGLOBIN 13.1 g/dl (12.0-16.0); LYMPH # 1.2 10*3/uL (1.3-4.4); LYMPH % 11.4 % (27.0-41.0); MEAN CELL VOLUME 97.3 fl (81.0-99.0); MEAN CORPUSCULAR HGB CONC 29.8 g/dl (33.0-37.0); MEAN PLATELET VOLUME 11.8 fl (9.6-12.3); MONO # 0.6 10*3/uL (0.1-1.0); MONO % 5.5 % (3.0-9.0); NEUT # 8.3 10*3/uL (2.3-7.9); NEUT % 80.1 % (47.0-73.0); PLATELET COUNT AUTOMATED 193 10*3/uL (130-400); RED BLOOD COUNT 4.52 10*6/uL (4.10-5.10); WHITE BLOOD COUNT 10.4 10*3/uL (4.8-10.8)
[2018-04-02 01:08] LABS: ALBUMIN 3.2 gm/dl (3.1-4.5); CREATININE 1.46 mg/dL (0.55-1.02); POTASSIUM 3.9 mmol/L (3.5-5.1)
[2018-04-02 01:10] LABS: TROPONIN I 0.054 ng/ml (<0.045)
[2018-04-02] MEDS ORDERED: XALATAN 0.005%2.5 ML OU (03:43)
[2018-04-02] MEDS ORDERED: ZOLOFT100 MG PO (03:45)
[2018-04-02] MEDS ORDERED: Synthroid,Levo50 MCG PO (03:48)
[2018-04-02] MEDS ORDERED: Synthroid,Lev200 MCG PO (03:48)
[2018-04-02] MEDS ORDERED: XOPENEX1.25 MG/3 INH (03:52)
[2018-04-03] VITALS: BP 128/56
[2018-04-03 04:00] VITALS: BP 169/58
[2018-04-03 06:02] LABS: BASO % 0.4 % (0.0-1.0); EOS # 0.3 10*3/uL (0.0-0.4); EOS % 4.5 % (1.0-4.0); HEMATOCRIT 41.8 % (37.0-47.0); HEMOGLOBIN 12.3 g/dl (12.0-16.0); LYMPH # 0.9 10*3/uL (1.3-4.4); LYMPH % 12.5 % (27.0-41.0); MEAN CELL VOLUME 97.4 fl (81.0-99.0); MEAN CORPUSCULAR HGB 28.7 pg (27.0-31.0); MEAN CORPUSCULAR HGB CONC 29.4 g/dl (33.0-37.0); MEAN PLATELET VOLUME 11.9 fl (9.6-12.3); MONO # 0.5 10*3/uL (0.1-1.0); MONO % 6.7 % (3.0-9.0); NEUT # 5.2 10*3/uL (2.3-7.9); NEUT % 75.6 % (47.0-73.0); PLATELET COUNT AUTOMATED 181 10*3/uL (130-400); RED BLOOD COUNT 4.29 10*6/uL (4.10-5.10); RED CELL DISTRI WIDTH 16.3 % (0-14.5); WHITE BLOOD COUNT 6.8 10*3/uL (4.8-10.8)
[2018-04-03 06:18] LABS: ALBUMIN 2.8 gm/dl (3.1-4.5); CREATININE 1.43 mg/dL (0.55-1.02); POTASSIUM 3.7 mmol/L (3.5-5.1); TOTAL PROTEIN 7.2 gm/dL (6.4-8.2)
[2018-04-03] MEDS ORDERED: ASPIR LOW81 MG PO (08:12)
[2018-04-03] MEDS ORDERED: ADMELOG100 UNIT/1 SQ (08:16)
[2018-04-03 12:00] VITALS: BP 151/65
[2018-04-03 17:15] VITALS: BP 147/74
[2018-04-03 20:00] VITALS: BP 142/76
[2018-04-04] VITALS: BP 136/58
[2018-04-04 04:00] VITALS: BP 127/67
[2018-04-04 06:03] LABS: ALBUMIN 2.6 gm/dl (3.1-4.5); CREATININE 1.27 mg/dL (0.55-1.02); POTASSIUM 3.8 mmol/L (3.5-5.1); TOTAL PROTEIN 6.7 gm/dL (6.4-8.2)
[2018-04-04 06:04] LABS: BASO # 0.1 10*3/uL (0.0-0.1); BASO % 0.5 % (0.0-1.0); EOS # 0.2 10*3/uL (0.0-0.4); EOS % 2.2 % (1.0-4.0); HEMATOCRIT 38.9 % (37.0-47.0); HEMOGLOBIN 11.9 g/dl (12.0-16.0); LYMPH # 1.2 10*3/uL (1.3-4.4); LYMPH % 12.7 % (27.0-41.0); MEAN CELL VOLUME 94.6 fl (81.0-99.0); MEAN CORPUSCULAR HGB CONC 30.6 g/dl (33.0-37.0); MEAN PLATELET VOLUME 12.2 fl (9.6-12.3); MONO # 0.7 10*3/uL (0.1-1.0); MONO % 7.8 % (3.0-9.0); NEUT # 7.2 10*3/uL (2.3-7.9); NEUT % 76.4 % (47.0-73.0); PLATELET COUNT AUTOMATED 199 10*3/uL (130-400); RED BLOOD COUNT 4.11 10*6/uL (4.10-5.10); WHITE BLOOD COUNT 9.4 10*3/uL (4.8-10.8)
[2018-04-04 08:00] VITALS: BP 149/76
[2018-04-04 12:00] VITALS: BP 107/50
[2018-04-04 16:00] VITALS: BP 94/35
[2018-04-04 20:00] VITALS: BP 113/54
[2018-04-05] VITALS: BP 105/48
[2018-04-05 04:02] VITALS: BP 105/40
[2018-04-05 05:26] LABS: ALBUMIN 2.6 gm/dl (3.1-4.5); CREATININE 1.37 mg/dL (0.55-1.02); POTASSIUM 3.6 mmol/L (3.5-5.1); TOTAL PROTEIN 6.4 gm/dL (6.4-8.2)
[2018-04-05 06:12] LABS: BASO # 0.1 10*3/uL (0.0-0.1); BASO % 0.7 % (0.0-1.0); EOS # 0.5 10*3/uL (0.0-0.4); EOS % 5.1 % (1.0-4.0); HEMATOCRIT 39.9 % (37.0-47.0); HEMOGLOBIN 12.1 g/dl (12.0-16.0); LYMPH # 1.3 10*3/uL (1.3-4.4); LYMPH % 13.7 % (27.0-41.0); MEAN CELL VOLUME 95.7 fl (81.0-99.0); MEAN CORPUSCULAR HGB CONC 30.3 g/dl (33.0-37.0); MEAN PLATELET VOLUME 12.4 fl (9.6-12.3); MONO # 0.7 10*3/uL (0.1-1.0); MONO % 7.7 % (3.0-9.0); NEUT # 6.8 10*3/uL (2.3-7.9); NEUT % 72.6 % (47.0-73.0); PLATELET COUNT AUTOMATED 203 10*3/uL (130-400); RED BLOOD COUNT 4.17 10*6/uL (4.10-5.10); RED CELL DISTRI WIDTH 16.3 % (0-14.5); WHITE BLOOD COUNT 9.3 10*3/uL (4.8-10.8)
[2018-04-05 08:00] VITALS: BP 140/62
[2018-04-05 12:00] VITALS: BP 132/62
[2018-04-05 16:00] VITALS: BP 127/30
[2018-04-05] MEDS ORDERED: ZOSYN 4/0.5 44.5 GM IV (16:02)
== END 2018-04-05 18:17 | disposition other institution (70) | DRG 208 ==
LOC: ED 00:16 → ICCU 02:23 → EDHOLD 02:23 → ICCU 02:31
PROVIDERS: Emergency Medicine; Internal Medicine
PROC: 5A1945Z Respiratory Ventilation, 24-96 Consecutive Hours (ICD-10-PCS; principal; 2018-04-02)
DX: J96.22 Acute and chronic respiratory failure with hypercapnia (principal); E43 Unspecified severe protein-calorie malnutrition; J15.1 Pneumonia due to Pseudomonas; I50.33 Acute on chronic diastolic (congestive) heart failure; Z99.11 Dependence on respirator [ventilator] status; K31.84 Gastroparesis; Z93.0 Tracheostomy status; G20 Parkinson's disease; E11.43 Type 2 diabetes mellitus with diabetic autonomic (poly)neuropathy; E11.22 Type 2 diabetes mellitus with diabetic chronic kidney disease; I13.0 Hypertensive heart and chronic kidney disease with heart failure and stage 1 through stage 4 chronic kidney disease, or unspecified chronic kidney disease; J44.0 Chronic obstructive pulmonary disease with (acute) lower respiratory infection; J45.901 Unspecified asthma with (acute) exacerbation; J44.1 Chronic obstructive pulmonary disease with (acute) exacerbation; E66.2 Morbid (severe) obesity with alveolar hypoventilation; Z68.45 Body mass index [BMI] 70 or greater, adult; N18.3 Chronic kidney disease, stage 3 (moderate); F32.9 Major depressive disorder, single episode, unspecified; E55.9 Vitamin D deficiency, unspecified; E11.65 Type 2 diabetes mellitus with hyperglycemia; F41.1 Generalized anxiety disorder; E78.2 Mixed hyperlipidemia; K21.0 Gastro-esophageal reflux disease with esophagitis; E03.9 Hypothyroidism, unspecified; M1A.9XX0 Chronic gout, unspecified, without tophus (tophi); Z79.899 Other long term (current) drug therapy; Z79.4 Long term (current) use of insulin; Z88.1 Allergy status to other antibiotic agents; Z88.8 Allergy status to other drugs, medicaments and biological substances; Z88.2 Allergy status to sulfonamides; Z91.040 Latex allergy status; Z87.440 Personal history of urinary (tract) infections; Z82.49 Family history of ischemic heart disease and other diseases of the circulatory system; Z87.891 Personal history of nicotine dependence

== ENCOUNTER 2018-04-22 15:41 | Inpatient (IN) | payer MEDICARE, OTHER ==
[~2018-04-22] VITALS: Ht 142.2 cm; Wt 149.4 kg
--- NOTE | ~2018-04-22 | PR ---
[place], [place] PROGRESS NOTE NAME: RUSS CULVER UNIT #: [id number] ROOM: [facility] DOCTOR: RADHA PERES MD BIRTHDATE: [birth year] DOS: 04/26/2018 SUBJECTIVE: The patient was seen at her bedside in the intensive care unit today, 04/26/2018 for followup of her diastolic congestive heart failure in the setting of severe obstructive lung disease and Pickwickian syndrome. The patient states that she feels well. She is breathing easily with her ventilator. Plans are being made for [facility]. PHYSICAL EXAMINATION: VITAL SIGNS: On exam, her pulse is 74 and regular, blood pressure was 96/66. She was afebrile. She weighs 148.5 kilograms with a body mass index of 73.4. HEENT: Normocephalic and atraumatic. Extraocular muscles are intact. Sclerae are clear. Pupils are round and react to light. The oral mucosa is moist. Tongue is midline. NECK: Supple. She has a tracheostomy in place. LUNGS: Her respirations are unlabored per vent. She does have scattered wheezes and crackles bilaterally with expiratory prolongation. HEART: Has a regular rhythm with distant tones. ABDOMEN: Soft and normally active, but quite obese. EXTREMITIES: Showed no edema today. LABORATORY DATA: Cultures have grown Pseudomonas aeruginosa in both her lungs and urine. Hemoglobin is 12.4, hematocrit 42.3, There were 9000 white cells and 110,000 platelets. Creatinine today is 1.68. The rest of the electrolytes are pending. IMPRESSION: 1. [id number] diastolic congestive heart failure, now compensated. 2. Acute respiratory failure, improved. 3. Pickwickian syndrome. 4. Morbid obesity with body mass index over 70. PLAN: The patient appears stable from a cardiac standpoint. No other advanced diagnostics are planned and no change in therapy is indicated at this time. We will remain available to see her as needed, but will sign off for now. From our perspective, [facility] when the other physicians believe she is stable to do so. [facility] and I thank Dr. Lopes for asking our advice regarding the patient's care. [place], [place] PROGRESS NOTE NAME: RUSS CULVER UNIT #: [id number] ROOM: [facility] DOCTOR: RADHA PERES MD BIRTHDATE: [birth year] RADHA PERES MD CM:PNTRANS 7 [phone] RADHA PERES MD 04/26/182051 interface
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
--- NOTE | ~2018-04-22 | PR ---
[place], [place] PROGRESS NOTE NAME: RUSS CULVER UNIT #: [id number] ROOM: [facility] DOCTOR: JET BHATIA MD,RAJIV BIRTHDATE: [birth year] DOS: 04/26/2018 SUBJECTIVE: She remains awake and alert, has been getting colistin as well as started on nebulized solution of tobramycin. She has been noted comfortable at this time on the mechanical ventilator, able to speak. Eating food with the mechanical ventilator as previously without any difficulty. Has not been reported any symptoms of chest pain or hemoptysis. Denies symptoms of nausea or vomiting. Remaining system reviewed with the patient limited, but noted all negative. She still has edema of the lower extremities which is chronic. OBJECTIVE: VITAL SIGNS: Normal temperature, respiratory rate of 12, heart rate 75, and blood pressure 114/56 130/56. The pulse oxygen saturation of the patient is 50% oxygen 96% saturation. HEENT: Examination shows head was atraumatic. Eyes nonicterus. NECK: Supple and short and obese. Tracheostomy in place. CARDIOVASCULAR: S1, S2 is audible. LUNGS: The patient was noted without any wheezing or crackles. ABDOMEN: Noted soft, severe obesity. Bowel sounds present. EXTREMITIES: Noted with chronic edema. MUSCULOSKELETAL: The patient noted without any acute deformities. LABORATORY DATA: The cultures of the bronchial washing were isolated with findings of heavy growth of Pseudomonas aeruginosa, which was currently noted to tobramycin were noted sensitive to IV Zosyn. The intermediate sensitivity reported to cefepime as well as ceftazidime. They were noted resistant to the fluoroquinolones. Creatinine of the patient noted 1.68. The previous culture of the patient's pseudomonas, which was isolated with endotracheal aspirate was noted with findings of Pseudomonas aeruginosa, which was noted sensitive only to the fluoroquinolones. Urine culture was also noted on 04/22/2018 to be sensitive to the meropenem, but noted resistant to the other antibiotics. IMPRESSION: 1. It can be a difficult situation for the patient if insensitivity noted in all 3 different specimens differently with the bronchial washing culture and the urine culture to be considered more accurate culture. Noted both isolation of Pseudomonas aeruginosa with various different sensitivities and multidrug resistant species. 2. The patient with acute pneumonia, failed to treatment of the patient's previous Zosyn with recurrence of the pneumonia. Severe inflammatory changes noted in the airways. 3. Morbid obesity with chronic ventilatory support. PLAN OF MANAGEMENT: At this time, the patient will be continued on colistin for this patient. The lab told me that the patient could not have a sensitivity done for the colistin for this patient at this time and not available. The patient continued to be treated empirically with that. Consultation will be obtained from the Infectious Disease specialist and got the opinion for about the duration of the treatment and appropriate antibiotic changes if need to be made for this patient. My preference for the patient is to send to the [place], [place] PROGRESS NOTE NAME: RUSS CULVER UNIT #: [id number] ROOM: [facility] DOCTOR: JET BHATIA MD,RAJIV BIRTHDATE: [birth year] long-term acute care facility where she remains until the cultures would be noted negative, pseudomonas aeruginosa in the urine for this patient and the endotracheal aspirate as well as assessment to be done with the CT scan of the chest to document the complete resolution of pneumonia. Prognosis of the patient with this current situation is quite guarded. The case was also discussed with Dr. Sandi Lopes about that. We will check the patient's preference and see about that. The review of systems for the patient was already completed as stated earlier. The past, family and social history reviewed again for the patient remains unchanged since admission. RAJIV CHAUDHARY MD CM:PNTRANS [id number] RAJIV BHATIA MD 05/05/18 1003 ELMO [email or web address]
--- NOTE | ~2018-04-22 | PROC NOTE ---
[place], [place] PROCEDURE NOTE NAME: RUSS CULVER UNIT #: [id number] ROOM: [facility] DOCTOR: JET BHATIA MD,RAJIV BIRTHDATE: [birth year] DOS: 04/24/2018 PREOPERATIVE DIAGNOSES: Acute pneumonia, intermittent secretion production of cough. POSTOPERATIVE DIAGNOSES: Severe inflammatory changes noted in the airways for this patient in trachea with a copious amount of purulent secretion removed from the right endobronchial tree and small amount of secretion noted in the left lower lobe bronchi. COMPLICATIONS: None. PROCEDURE DESCRIPTION: Informed consent obtained with the patient, given 5 mg of Versed. Intermittently conscious sedation bronchoscopy done next to pressure room in the Intensive Care Unit. Bronchoscope advanced to the tracheostomy into the lower part of trachea noted with inflammatory changes with redness with this small amount of clotted blood for the patient as well. Moderate amount of bilious secretion present in tracheal lumen. Iris were noted. The patient was noted with a copious filling of the right main stem bronchus as well as mucus impaction noted in endobronchial tree for this patient right upper, middle and lower lobe. Finding noted much more pronounced in the right upper and right lower lobe. The left endobronchial tree were noted small amount of secretion, purulent secretion with right lower lobe bronchi. All secretions suctioned out with the help of normal saline wash, sent for culture. Procedure was tolerated by the patient without complications. Postoperative finding will be discussed with the patient once the patient recovered the effects of acute sedation. The cultures of the endobronchial washings were sent to the lab. RAJIV CHAUDHARY MD CM:PROCNOTE:PROCEDURE NOTE [id number] RAJIV BHATIA MD
--- NOTE | ~2018-04-22 | EKG ---
[place], [place] ELECTROCARDIOGRAM REPORT NAME: RUSS CULVER UNIT #: [id number] ROOM: [facility] DOCTOR: JET BHATIA MD,RAJIV BIRTHDATE: [birth year] DOS: 04/22/2018 ELECTROCARDIOGRAM DATE AND TIME OF PROCEDURE: 03:57 p.m. on 04/22/2018. FINDINGS: Electrocardiogram showed normal sinus rhythm, heart rate of 96 beats per minute. Nonspecific ST-T changes noted in the chest leads. RAJIV CHAUDHARY MD CM:EKGRPT:ELECTROCARDIOGRAM REPORT [id number] RAJIV BHATIA MD
--- NOTE | ~2018-04-22 | PR ---
[place], [place] PROGRESS NOTE NAME: RUSS CULVER UNIT #: [id number] ROOM: [facility] DOCTOR: RAJIV JONES MD BIRTHDATE: [birth year] DOS: 04/29/2018 PULMONRY PROGRESS NOTE SUBJECTIVE: She has been noted comfortable at this time. Noted awake and alert to the baseline. She has not been noted any symptoms of chest pain. No coughing or sputum expectoration reported. The patient had been eating her food this morning. OBJECTIVE: VITAL SIGNS: Shows normal temperature, respirations 16, heart rate 82, blood pressure 134/60. Pulse oxygen saturation on 50% oxygen is 94% saturation. HEENT: Shows head was atraumatic. Eyes, nonicterus. NECK: Supple, short and obese. Tracheostomy in place. CARDIOVASCULAR: S1, S2 is audible. LUNGS: The patient was noted without any wheezing or crackles. ABDOMEN: Soft with morbid obesity. Bowel sounds present. EXTREMITIES: Without any new changes. LABORATORY DATA: Arterial blood gas on 40% oxygen yesterday, the patient's pH is 7.35, pCO2 of 55, pO2 72 noted after adjustment of mechanical ventilation and any change in the cuff pressure to the appropriate level that resulted in resolution of the air leak. IMPRESSION: 1. Acute pneumonia, which has been noted stable with acute on chronic hypercapnic hypoxic respiratory failure secondary to that. 2. Chronic ventilator dependency. 3. Permanent tracheostomy. PLAN OF TREATMENT: No changes in plan of care. The patient could be transferred to the nursing facility if necessary on antibiotics as recommended by the Infectious Disease specialist without duration. Other supportive plan of therapy and care plan with usual medical management. [place], [place] PROGRESS NOTE NAME: RUSS CULVER UNIT #: [id number] ROOM: [facility] DOCTOR: RAJIV JONES MD BIRTHDATE: [birth year] RAJIV CHAUDHARY MD CM:PNTRANS [id number] RAJIV BHATIA MD 04/29/18 3414 interface
--- NOTE | ~2018-04-22 | PR ---
[place], [place] PROGRESS NOTE NAME: RUSS CULVER UNIT #: [id number] ROOM: [facility] DOCTOR: CESILIA SOLANO MD BIRTHDATE: [birth year] DOS: 04/26/2018 SUBJECTIVE: The patient is not having any new changes. She is about the same, but doing poorly overall with increasing shortness of breath and panic episodes. OBJECTIVE: VITAL SIGNS: Graphic trend shows a pressure of 196/66, pulse of 74, respirations 12, temperature 97.3. LUNGS: Diminished breath sounds, very poor air entry. HEART: Regular. ABDOMEN: Obese. EXTREMITIES: Without any edema. LABORATORY DATA: Cultures of the sputum showed Pseudomonas aeruginosa, gentamicin resistant, sensitive to Zosyn. Blood culture shows no bacterial growth. Urine culture shows Pseudomonas, which is also sensitive to meropenem. ASSESSMENT AND PLAN: 1. The patient with resistant pseudomonas. Dr. Turner has started on colistin and waiting for sensitivities from the labs. Once we have the identification, we will decide on further antibiotic orders. I already spoke to day care director at the [facility] about future plans as well as whether they would be okay with giving her the expensive antibiotic. Social Service will be consulted for discharge planning. 2. Chronic respiratory failure. Overall, prognosis remains poor and guarded. I also suggested that the patient consider hospice care, which will consult when she goes back to the snf. CESILIA SOLANO MD CM:PNTRANS [id number] CESILIA SOLANO MD 04/26/18 172 interface
--- NOTE | ~2018-04-22 | PR ---
[place], [place] PROGRESS NOTE NAME: RUSS CULVER UNIT #: [id number] ROOM: [facility] DOCTOR: JET BHATIA MD,RAJIV BIRTHDATE: [birth year] DOS: 04/25/2018 SUBJECTIVE: The patient has been noted comfortable. Bronchoscopy done yesterday without any difficulty. The culture of the endotracheal aspirate was noted with evidence of Pseudomonas aeruginosa was having grown, noted resistant to multiple antibiotics and the only antibiotic the patient noted positive is for the tobramycin and gentamicin. The patient has been noted on mechanical ventilator at this time, resting comfortably. There was no hemodynamic instability was noted. The patient has not been noted any other acute new changes. The patient at this time appeared to be comfortable. Reviewed of systems could not be completed. OBJECTIVE: VITAL SIGNS: The patient showed normal temperature, respiratory rate of 15, heart rate 55-70, blood pressure 104/43-114/63. Pulse oxygen saturation of the patient, 50% was 95-96% saturation. HEENT: Examination shows head was atraumatic. Eyes nonicterus. NECK: Supple, short and obese. Tracheostomy in place. CARDIOVASCULAR: S1, S2 audible. LUNGS: Moderate decreased breath sounds. ABDOMEN: Soft, severely obese. Bowel sounds present. EXTREMITIES: The patient chronic changes with superimposed edema. CENTRAL NERVOUS SYSTEM: No new changes. SKIN: No lesions or rashes. MUSCULOSKELETAL: Without any acute deformities. LABORATORY DATA: Culture of the endotracheal aspirate today still noted to have growth of gram-negative bacillus Pseudomonas aeruginosa sensitive to gentamicin, tobramycin, all of the other tested antibiotics. The culture of the bronchial washing was noted to have a growth of gram-negative bacilli. Preliminary final cultures are pending. Gram stain of yesterday's bronchial washing, many white blood cells, moderate gram-positive bacilli and few gram-negative bacilli. IMPRESSION: 1. Acute Pseudomonas aeruginosa, resistant pneumonia for the patient currently being isolated of bronchial washing cultures. 2. The patient with acute pneumonia, which has been treated with previous antibiotic. The patient was noted resistant to the IV Zosyn. 3. Acute respiratory failure. PLAN OF MANAGEMENT: Additional testing, the current cultures need to be done. The patient will be started on intravenous colistin for this patient and the sensitivity results will be ordered if available to be done. Other supportive therapy, plan of management and care plan. Additional treatment changes to be made for the patient with progressive illness. Possible consideration of use of the gentamicin, tobramycin would be considered as well, final resort. Other supportive therapy, plan of management and care. Consultation could be obtained from the patient from the Infectious Disease specialist if necessary as well. Patient remains guarded at this time. Consideration has been also given by the [place], [place] PROGRESS NOTE NAME: RUSS CULVER UNIT #: [id number] ROOM: [facility] DOCTOR: RAJIV JONES MD BIRTHDATE: [birth year] primary care attending. Code status, comfort care and hospice care for this patient in the nursing home facility. RAJIV CHAUDHARY MD CM:NIKKI 1303 1424 RAJIV BHATIA MD 05/05/18 1002 ELMO [email or web address]
--- NOTE | ~2018-04-22 | PR ---
[place], [place] PROGRESS NOTE NAME: RUSS CULVER UNIT #: [id number] ROOM: [facility] DOCTOR: AIMEE GARCIA MD BIRTHDATE: [birth year] DOS: SUBJECTIVE: I am seeing this patient for my partner, Dr. Junior. The patient underwent bronchoscopy by Dr. Turner this morning and significant amount of purulent respiratory secretions were removed and sent for cultures. OBJECTIVE: VITAL SIGNS: Blood pressure 136/88, heart rate 78 beats per minute, breathing 18 times per minute, temperature 98 degrees Fahrenheit. GENERAL APPEARANCE: The patient is alert and oriented x 3, in no visible distress, except for morbid obesity, quadriplegia, tracheostomy tube and on mechanical ventilation. HEENT AND NECK: Exam within normal limits. CARDIOVASCULAR SYSTEM: Heart rate is regular in rate and rhythm. S1 and S2 normally audible. LUNGS: Decreased breath sounds all over with both inspiratory and expiratory wheezing. ABDOMEN: Soft, nontender. No obvious organomegaly. Bowel sounds are present. EXTREMITIES: Without significant cyanosis or edema. IMPRESSION AND PLAN: 1. The patient with acute over chronic respiratory failure with pneumonia, status post bronchoscopy by Dr. Turner today. The patient is still complaining of respiratory difficulty and severe anxiety. 2. Severe acute over chronic generalized anxiety disorder. I will stop her buspirone and continue her on Ativan and add a small dose of Haldol to the treatment. 3. Acute diastolic type congestive heart failure. The patient is being diuresed. 4. Advanced adult failure to thrive and declining health with poor long-term prognosis. The [facility] resides at the [facility]. 5. Benign essential hypertension, treated and controlled. 6. Type 2 diabetes mellitus. Blood sugar is being monitored and treated and reasonably controlled, ranging between 90 to 130. 7. Severe generalized anxiety with chronic respiratory failure. Buspirone stopped, which was not helping. I will continue Ativan and added Haldol to the treatment. The patient is already on Zoloft. 8. Hypothyroidism, treated with thyroid supplements. 9. Mixed hyperlipidemia, treated with Lipitor. 10. Chronic respiratory failure, with tracheostomy tube and mechanical ventilation dependent. [place], [place] PROGRESS NOTE NAME: RUSS CULVER UNIT #: [id number] ROOM: [facility] DOCTOR: AIMEE GARCIA MD BIRTHDATE: [birth year] AIMEE GARCIA MD CM:PNTRANS [id number] 1519 AIMEE GARCIA MD 04/25/18 1517 interface
--- NOTE | ~2018-04-22 | CON ---
[place], [place] REPORT OF CONSULTATION NAME: RUSS CULVER UNIT #: [id number] ROOM: [facility] DOCTOR: RADHA PERES MD BIRTHDATE: [birth year] DOS: 04/23/2018 CARDIOLOGY CONSULTATION REFERRED BY: Sandi Lopes MD REASON FOR CONSULTATION: Evaluation of heart failure and elevated troponin. HISTORY OF PRESENT ILLNESS: The patient is a 67-year-old woman with a history of morbid obesity, severe COPD, and chronic respiratory failure. She has obesity hypoventilation syndrome and has required multiple intubations. She did undergo tracheostomy and currently is chronically on a ventilator through the tracheostomy. She is able to phonate around the tracheostomy and can communicate, but has to have the ventilator for chronic respiratory support. She denies any history of myocardial infarction, but has had episodes of chest pain. She was last hospitalized in early March with dyspnea and elevated troponin. Her echocardiogram at that time showed normal left ventricular function and she was treated conservatively. The patient states that she was doing reasonably well, although over the last week or two, her weight had increased dramatically. She does consume fluids ad kathy and apparently does also eat more salt than she should. She was beginning to have problems last week, at which time it was noted that she had gained 22 pounds over the last few days. Her ventilator malfunctioned and she developed hypoxemic and hypercarbic respiratory failure. She required manual bagging and was transferred to [facility] where she was noted to be in heart failure. She was diuresed 2.3 liters overnight and now feels better. PAST HISTORY: Includes: 1. Chronic hypercapnic and hypoxemic respiratory failure. The patient is ventilator dependent through her tracheostomy. 2. History of central lobular emphysema. 3. History of gastroparesis. 4. Diastolic heart failure. 5. Pickwickian syndrome. 6. 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 7. Recurrent pneumonia. 8. Anxiety and depression. 9. Morbid obesity with body mass index over 70 (74.3 this admission). 10. History of recurrent urinary tract infections. 11. Most recent echocardiogram on 04/03/2018 showed normal left ventricular size, wall motion and systolic function with ejection fraction about 55%, stage 2 diastolic relaxation abnormalities. No obvious valve abnormalities. 12. Hospitalization in 04/2017 with elevated troponin, felt secondary to demand ischemia. 13. Hospitalization in 05/2017 with increased respiratory distress and elevated troponin, felt secondary to demand ischemia. 14. Hospitalization on 04/03/2018 with elevated troponin, felt due to demand ischemia. 15. Review of records indicates that her troponin has been elevated on every [place], [place] REPORT OF CONSULTATION NAME: RUSS CULVER UNIT #: [id number] ROOM: [facility] DOCTOR: RADHA PERES MD BIRTHDATE: [birth year] admission and during every determination for at least 2-3 years. MEDICATIONS: Prior to admission, the patient was on albuterol by nebulizer q.i.d., Xalatan eyedrops at bedtime, acetaminophen p.r.n., allopurinol 100 mg daily, aspirin 81 mg daily, atorvastatin 40 mg daily, buspirone 10 mg q. 8 hours, carbidopa and levodopa 25/100 one tablet b.i.d., cholecalciferol 4000 units daily, folic acid 1 mg daily, furosemide 40 mg daily, levothyroxine 250 mcg at bedtime, lisinopril 2.5 mg daily, lorazepam 0.5 mg q. 6 hours p.r.n., magnesium oxide 400 mg t.i.d., metoprolol 12.5 mg b.i.d., multivitamin daily, omeprazole 20 mg daily, potassium 20 mEq daily, primidone 50 mg at bedtime, sertraline 100 mg at bedtime, tramadol 50 mg q. 12 hours p.r.n., Lantus insulin 50 units subcutaneously twice a day, Humalog insulin 4 times a day by sliding scale. ALLERGIES: The patient lists allergies to TETRACYCLINE, SULFAMETHOXAZOLE, TRIMETHOPRIM, PHENYLALANINE, MEPERIDINE AND TAPE. FAMILY HISTORY: Negative for early coronary artery disease. REVIEW OF SYSTEMS: The patient denies diplopia or loss of vision. She is generally weak, but denies focal weakness. She does have chronic dyspnea and did have a syncopal episode yesterday prior to being brought to the hospital. She was hypoxemic at the time. She denies fevers, but does have chills on occasion. She does have a productive cough. She denies hemoptysis or hematemesis. She denies change in bowel or bladder habits. She denies blood in her stools or urine. She denies any skin rashes. She denies any significant peripheral edema. Remainder of the review of systems is negative except as noted above. SOCIAL HISTORY: The patient is a resident of a longterm. She does not consume alcohol. 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 She has not smoked in many years. PHYSICAL EXAMINATION: GENERAL: The patient is an obese white female who is awake, alert and oriented. VITAL SIGNS: Pulse is 82 and regular, blood pressure 149/66. She is afebrile. She weighs 150.3 kg and has a body mass index of 74.3. HEENT: Normocephalic and atraumatic. Extraocular muscles are intact. Sclerae are clear. Pupils are equal, round and react to light. The oral mucosa is moist. Tongue is midline. NECK: Supple. She has no jugular distention. She does have hepatojugular reflux. She does have a tracheostomy in place. Carotids are full. There are no bruits. LUNGS: Respirations are unlabored on the vent. She does have scattered expiratory wheezes and crackles at the bases. She had no chest wall tenderness. CARDIOVASCULAR: Her heart had a regular rhythm with distant tones. No obvious murmurs or rubs were heard. She had a fourth heart sound, but no third heart sound. The PMI could not be felt. ABDOMEN: Morbidly obese, but soft and normally active without masses, [place], [place] REPORT OF CONSULTATION NAME: RUSS CULVER UNIT #: [id number] ROOM: [facility] DOCTOR: RADHA PERES MD BIRTHDATE: [birth year] organomegaly or bruits. EXTREMITIES: Showed 1+ edema of the ankles bilaterally. Peripheral pulses were diminished. IMAGING AND LABORATORY DATA: CT scan of the chest shows bilateral lower lobe atelectasis with cardiomegaly and right upper lobe pulmonary infiltrate, which may be somewhat worse from the previous examination dated 04/03/2018. Hemoglobin is 13.7; hematocrit 46.2; there are 14,400 white cells and 273,000 platelets. Sodium is 141, potassium 4.2, chloride 101, CO2 of 31, BUN 38, creatinine 1.63. Her baseline lactic acid level was elevated at 3.2. Troponins have been minimally elevated at 0.072, 0.057, 0.054 and 0.062. IMPRESSION: 1. Acute on chronic respiratory failure. 2. Morbid obesity. 3. Pickwickian syndrome. 4. Chronic elevation in troponin, most likely due to chronic hypoxemia, work of breathing, demand ischemia, etc. 5. Type 2 diabetes mellitus, on insulin. 6. History of diastolic congestive heart failure with an acute exacerbation noted this admission, also made worse by her hypoxemia and right heart failure. PLAN: The patient's presentation once again does not suggest an acute coronary event. Her poor performance status, morbid obesity and debility would make her a very poor candidate for any advanced cardiac diagnostic procedures in any case. We will continue to follow her troponin levels. She just had an echocardiogram 3 weeks ago, so this will not be repeated at this time. We will continue to treat her conservatively and empirically. I will be giving her another bolus dose of furosemide today and we will continue to monitor her I and O over the next 48 hours. We will continue to follow her with her other physicians. I thank Dr. Cadena and Dr. Lopes for asking our advice regarding her care. RADHA PERES MD CM:CONSTR:REPORT OF CONSULTATION 1432 04/24/18 1250 interface
--- NOTE | ~2018-04-22 | PR ---
[place], [place] PROGRESS NOTE NAME: RUSS CULVER UNIT #: [id number] ROOM: [facility] DOCTOR: CESILIA SOLANO MD BIRTHDATE: [birth year] DOS: 04/25/2018 SUBJECTIVE: The patient is doing fine without any complaints. OBJECTIVE: VITAL SIGNS: Graphic trend shows a pressure of 100/50, pulse of 68, respirations 16, temperature 97.5. LUNGS: Diminished breath sounds. HEART: Regular. ABDOMEN: Obese. EXTREMITIES: Without any edema. LABORATORY DATA: Urine and sputum cultures both grew Pseudomonas. ASSESSMENT AND PLAN: 1. Right upper lobe pneumonia, on antibiotics. 2. Congestive heart failure with an elevated troponin. Appreciate Dr. Sinclair's input. The patient is on conservative medical management only. 3. Chronic respiratory failure, ventilator dependent. Appreciate Dr. Turner's input. Bronchoscopy was done. Bronch cultures showed the above-mentioned findings. The patient has declined in the last couple of months. Discussed with patient about end of life care and hospice, which she needs to consider [facility]. The plan is to discharge the patient to home tomorrow. CESILIA SOLANO MD CM:PNTRANS [phone] CESILIA SOLANO MD 04/26/18 0147 interface
--- NOTE | ~2018-04-22 | PR ---
[place], [place] PROGRESS NOTE NAME: RUSS CULVER UNIT #: [id number] ROOM: [facility] DOCTOR: AIMEE GARCIA MD BIRTHDATE: [birth year] DOS: 04/28/2018 SUBJECTIVE: The patient is reconsidering her code status, but she says she is unable to decide. The patient remains on mechanical ventilation, although she appears more comfortable today than yesterday. The patient's Haldol had to be stopped because when she became unresponsive for a short time and her Haldol was stopped. PHYSICAL EXAMINATION: VITAL SIGNS: Blood pressure 100/57, heart rate 60 beats per minute, breathing at 16 times per minute, and temperature 98 degrees Fahrenheit. Morbid obesity, generalized weakness. GENERAL APPEARANCE: The patient is alert and oriented x 3, in no visible distress. HEENT AND NECK: Exam within normal limits. CARDIOVASCULAR SYSTEM: Heart rate is regular in rate and rhythm. S1 and S2 normally audible. LUNGS: Clear to auscultation. ABDOMEN: Soft, nontender. No obvious organomegaly. Bowel sounds are present. EXTREMITIES: Without significant cyanosis or edema. IMPRESSION: 1. The patient with acute over chronic respiratory failure, continues to be on mechanical ventilation, bronchodilators and inhaled corticosteroids. 2. Episode of unresponsiveness, which resolved on its own and as a precaution, her Haldol was stopped. 3. The patient with Pseudomonas aeruginosa pneumonia, growing on sputum cultures, which is very resistant species. She also has urinary infection. Infectious disease is following the patient and treating her with Zosyn and colistin. 4. Chronic gouty arthritis, treated and controlled with allopurinol. 5. Advance adult failure to thrive, chronic respiratory failure, mechanical ventilation dependent. A detailed discussion with the patient regarding code status and she remains undecided. 6. Severe generalized anxiety disorder, treated with lorazepam as needed, now her Haldol has been stopped. 7. Chronic back pains, treated and controlled with tramadol as needed. 8. Mixed hyperlipidemia, treated with atorvastatin. 9. Hypothyroidism, treated with levothyroxine. 10. Benign essential hypertension, treated. 11. Uncontrolled type 2 diabetes mellitus. The patient remains on insulin. Blood sugar is being monitored and treated. [place], [place] PROGRESS NOTE NAME: RUSS CULVER UNIT #: [id number] ROOM: [facility] DOCTOR: AIMEE GARCIA MD BIRTHDATE: [birth year] AIMEE GARCIA MD CM:PNBISHOP [phone] AIMEE GARCIA MD 04/29/18 0557 interface
--- NOTE | ~2018-04-22 | PR ---
[place], [place] PROGRESS NOTE NAME: RUSS CULVER UNIT #: [id number] ROOM: [facility] DOCTOR: JET BHATIA MD,RAJIV BIRTHDATE: [birth year] DOS: 04/27/2018 SUBJECTIVE: The patient was seen and examined on 04/27/2018. The patient has been noted sleepy at this time and resting on the mechanical ventilator without difficulty. She was seen by the Infectious Disease specialist, recommended intravenous Zosyn. Continue IV colistin for the medical management of Pseudomonas aeruginosa, which isolate of multiple sites including from the lung. The patient has been noted without any difficulty. Remains on mechanical ventilation, receiving assist control and ventilation earlier. She has not been noted any acute hemodynamic instability and possible consideration of transfer to nursing facility tomorrow on these antibiotics, remains on further stability of the respiratory status. Review of systems could not be performed as the patient is sleepy. OBJECTIVE: VITAL SIGNS: The patient showed normal temperature, respiratory rate of 17, heart rate of 75, blood pressure 144/60-112/60. Pulse oxygen saturation noted 50% oxygen 40% and 98% saturation. NECK: Short and obese. HEENT: Head was atraumatic. CARDIOVASCULAR: S1, S2 is audible. LUNGS: The patient noted with moderate decreased breath sounds bilaterally. ABDOMEN: Soft and obese. EXTREMITIES: Without any acute new edema. Chronic changes noted with partial edema. SKIN: No lesions or rashes. MUSCULOSKELETAL: Without any acute deformities. LABORATORY DATA: The patient's creatinine yesterday noted at 1.68. Creatinine this morning is 1.88. Arterial blood gas was not done today. No other labs were taken today. IMPRESSION: 1. The patient grew Pseudomonas aeruginosa pneumonia with recurrence, very resistant species, as well as urinary tract infection. 2. The patient with chronic ventilatory failure and hypoxic. The patient remains on mechanical ventilator dependency. 3. Bilateral vocal cord paralysis. 4. History of obstructive sleep apnea disorder. 5. Other medical illnesses, the patient remained stable. PLAN OF MANAGEMENT: Continue the current recommendation as suggested by the Infectious disease specialist. Continue bronchodilators, oxygen supplementation the plan of care. Upon stability, she could be transferred to the nursing facility tomorrow. Other additional treatment changes will be made for the patient based on progression of the illness. Supportive care, plan of management and therapies. [place], [place] PROGRESS NOTE NAME: RUSS CULVER UNIT #: [id number] ROOM: [facility] DOCTOR: JET BHATIA MD,RAJIV BIRTHDATE: [birth year] ARJIV CHAUDHARY MD CM:PNBISHOP [phone] RAJIV BHATIA MD 05/05/18 1004 ELMO [email or web address]
--- NOTE | ~2018-04-22 | DS ---
[place], [place] DISCHARGE SUMMARY NAME: RUSS CULVER UNIT #: [id number] ROOM: [facility] DOCTOR: AIMEE GARCIA MD BIRTHDATE: [birth year] DOS: 04/29/2018 DISCHARGE DIAGNOSES: 1. The patient with acute over chronic respiratory failure, improved. She remains on mechanical ventilation and has a tracheostomy tube in place. 2. The patient has Pseudomonas aeruginosa pneumonia. 3. Chronic gouty arthritis. 4. Adult failure to thrive, severe; generalized anxiety disorder. 5. Chronic back pains. 6. Hyperlipidemia. 7. Hypothyroidism. 8. Benign essential hypertension. 9. Uncontrolled type 2 diabetes mellitus. 10. Morbid obesity. 11. Generalized anxiety disorder. 12. Glaucoma. 13. Chronic gouty arthritis. 14. Vitamin D deficiency. HOSPITAL COURSE: The patient was [facility] with sepsis, lactic acidosis, pneumonia, and acute over chronic respiratory failure. The patient was followed by Dr. Turner, the seismometer operator and after prolonged treatment at the hospital, has been cleared by Dr. Turner for discharge and Infectious Diseases have recommended 1 more week of antibiotics for her. FINAL DIAGNOSES: 1. Advance adult failure to thrive and poor long-term prognosis. 2. Diastolic type congestive heart failure, treated with diuresis. 3. Chronic respiratory failure and ventilator dependence with tracheostomy tube in place. The patient remains on mechanical ventilation. 4. Benign essential hypertension, type 2 diabetes mellitus with blood sugars monitored, treated and controlled. 5. Benign essential hypertension. Blood pressures are controlled with treatment. 6. Morbid obesity. The patient worked with dietary. 7. Chronic diastolic type congestive heart failure, treated with diuretics, followed with chest x-rays. 8. Sepsis due to pneumonia, acute respiratory failure, lactic acidosis, improved with treatment. LABORATORY DATA: Blood gases showing a pH of 7.35, pCO2 of 55, pO2 of 72, saturating 95%. Blood cultures were negative. CT head without acute abnormality. DISCHARGE MANAGEMENT: Ventilator settings. The patient on assist control with CMV of 12, FiO2 of 50%, tidal volume 600 and PEEP of 5. Lantus insulin subcutaneous 50 units daily, metoprolol 12.5 mg b.i.d., Zoloft 100 mg a day, primidone 50 mg at bedtime, levothyroxine 50 mcg daily, levothyroxine 200 mcg daily, latanoprost eyedrops at bedtime, Lipitor 40 mg a day, potassium chloride [place], [place] DISCHARGE SUMMARY NAME: RUSS CULVER UNIT #: [id number] ROOM: [facility] DOCTOR: JOSE GUZMAN,AIMEE Parada BIRTHDATE: [birth year] 20 mEq daily, omeprazole 20 mg a day, magnesium oxide 400 mg 3 times a day, lisinopril 2.5 mg a day, folic acid 1 mg daily, Sinemet 25/100 b.i.d., aspirin 81 mg a day, allopurinol 100 mg daily, tramadol 50 mg b.i.d., no concentrated sweet diet, prednisone, Medrol Dosepak, Duonebs every 4 hours, Pulmicort 0.5 mg b.i.d. with DuoNeb, lorazepam 0.5 mg t.i.d. p.r.n. for anxiety, Zerbaxa 1.5 grams 3 times a day for 1 week, oxygen titrate to keep pulse ox 90-96%. AIMEE GARCIA MD CM:RAJESH [phone] AIMEE GARCIA MD 04/29/18 2300 interface
--- NOTE | ~2018-04-22 | DS ---
[place], [place] DISCHARGE SUMMARY NAME: RUSS CULVER UNIT #: [id number] ROOM: [facility] DOCTOR: CESILIA SOLANO MD BIRTHDATE: [birth year] DOS: 04/27/2018 DIAGNOSES: 1. Chronic respiratory failure. 2. Pseudomonas, which is colonized both in the urine and the sputum, which is resistant to multiple antibiotics. 3. Elevated troponin, possibly from chronic renal failure. 4. Chronic kidney disease. 5. Benign hypertension. 6. Generalized anxiety disorder with panic attacks. 7. Major depression, mild, recurrent. 8. Morbid obesity. 9. Obesity hypoventilation with resultant respiratory failure. HOSPITAL COURSE: This patient is very well known to us, comes in with complaints of difficulty breathing with hypoxia and on the ventilator. After admission, the patient had an elevated white cell count. A chest x-ray showed a right upper lobe pneumonia and congestive heart failure, diastolic dysfunction was noted. Cardiology consultation was obtained because of elevated troponin. Advice is to continue conservative management. Dr. Turner did see the patient. Bronchoscopy was performed. Bronch cultures and urine cultures both grew pseudomonas, which are responding to different antibiotics and they are resistant to carbapenem, so the Infectious Disease was consulted. The patient who has been on Zosyn and colistin, their suggestion is to continue this medicine for 7 days and then discontinue them and not to start the patient back on any antibiotics unless there is an obvious definite source of infection. At this present time, the patient's overall prognosis remains poor and guarded and she has declined slowly and I would consider hospice for this patient at the alf. This was discussed with the patient and so please consult hospice when the patient arrives at the alf. DISCHARGE MEDICATIONS: Will be colistin 150 mg but 50 mg twice a day for 7 days, Zosyn 3.375 q. 8, lisinopril 2.5 daily, potassium 20 daily, BuSpar 10 q. 8, carbidopa/levodopa 1 tablet twice a day, Ativan 0.5 q. 6 p.r.n., Tylenol 650 q. 6 p.r.n., tramadol 50 b.i.d., atorvastatin 40 daily, sertraline 100 at bedtime, aspirin 81 daily, DuoNeb q. 4, Mysoline 50 at bedtime, metoprolol 12.5 b.i.d. DIET: ADA 1800, blood sugars to be checked twice daily. Continue coverage scale and insulin. [place], [place] DISCHARGE SUMMARY NAME: RUSS CULVER UNIT #: [id number] ROOM: [facility] DOCTOR: CESILIA SOLANO MD BIRTHDATE: [birth year] CESILIA SOLANO MD CM:DISCHARG [phone] CESILIA SOLANO MD 04/27/18 1459 interface
--- NOTE | ~2018-04-22 | PR ---
[place], [place] PROGRESS NOTE NAME: RUSS CULVER UNIT #: [id number] ROOM: [facility] DOCTOR: CESILIA SOLANO MD BIRTHDATE: [birth year] DOS: 04/27/2018 SUBJECTIVE: The patient is about the same, does not have any new complaints. Appreciate ID input. OBJECTIVE: VITAL SIGNS: Blood pressure is 130/50, pulse of 60, respirations 20, temperature 97.7. LUNGS: Clear. HEART: Regular. ABDOMEN: Obese, soft, nontender. EXTREMITIES: Without any edema. ASSESSMENT AND PLAN: 1. Chronic respiratory failure. 2. Right upper lobe pneumonia with Pseudomonas, which is colonized. The plan is not to treat after the 7 days unless there is an obvious infection. The patient is going to be discharged and we need to consider hospice for this patient at the snf. CESILIA SOLANO MD CM:PNTRANS [id number] CESILIA SOLANO MD 04/27/18 1238 interface
--- NOTE | ~2018-04-22 | PR ---
[place], [place] PROGRESS NOTE NAME: RUSS CULVER UNIT #: [id number] ROOM: [facility] DOCTOR: RADHA PERES MD BIRTHDATE: [birth year] DOS: 04/24/2018 CARDIOLOGY PROGRESS NOTE SUBJECTIVE: The patient was seen at her bedside today 04/24/2018 in the Intensive Care Unit. She had a bronchoscopy earlier today and states that she is feeling better. She is breathing more easily. Her biggest complaints today are headache and tinnitus. She denies any chest pain. PHYSICAL EXAMINATION: GENERAL: She is a morbidly obese white woman who is awake, alert and oriented. VITAL SIGNS: Pulse is 68 and regular, blood pressure is 145/74. She is afebrile. She has an oxygen saturation on the ventilator of 96. NECK: Supple. She has no jugular distention. LUNGS: Her respirations are per ventilator and she does have coarse bilateral breath sounds with expiratory prolongation and scattered wheezing. HEART: Has distant, but is regular with an S4 gallop. There is no S3. ABDOMEN: Soft. EXTREMITIES: Showed trace edema. LABORATORY DATA: Sodium is 140, potassium 3.8, chloride 99, CO2 of 36, BUN 48, creatinine 1.64. Blood gas; pH was 7.367 with a pCO2 of 59.3 and a pO2 of 105.0. IMPRESSION: 1. Acute on chronic diastolic congestive heart failure. 2. Acute respiratory failure. 3. History of Pickwickian syndrome. 4. Morbid obesity, body mass index over 70. PLAN: She is responding nicely to appropriate pulmonary management strategies. We will continue her current cardiac medications and observe her with her other physicians. No advance cardiac diagnostics are planned at this time. We thank Dr. Lopes for asking our advice regarding her care. [place], [place] PROGRESS NOTE NAME: RUSS CULVER UNIT #: [id number] ROOM: [facility] DOCTOR: RADHA PERES MD BIRTHDATE: [birth year] RADHA PERES MD CM:PNTRANS [phone] RADHA PERES MD 04/25/18 0829 interface
--- NOTE | ~2018-04-22 | PR ---
[place], [place] PROGRESS NOTE NAME: RUSS CULVER UNIT #: [id number] ROOM: [facility] DOCTOR: JET BHATIA MD,RAJIV BIRTHDATE: [birth year] DOS: 04/24/2018 PULMONARY PROGRESS NOTE SUBJECTIVE: She has been kept n.p.o. past midnight for bronchoscopy planned for today. Remains on mechanical ventilator. She has not been noted symptoms of chest pain. She does have some cough intermittently. There was not much sputum expectoration. There were no symptoms of abdominal pain, nausea, vomiting reported. Extremities, the patient was noted with mild edema without any other changes. REVIEW OF SYSTEMS: Complete with the patient was noted negative. OBJECTIVE: VITAL SIGNS: For the patient, which has been recorded showed the temperature noted 99 degree Fahrenheit, normal temperature, respiratory rate of 20-19. Heart rate 101-87, blood pressure 130/70-155/84. Pulse oxygen saturation on 50% oxygen supplementation 98%-100% saturation. HEENT: Head was atraumatic. Eyes nonicterus. NECK: Supple and obese and short. Tracheostomy in place. CARDIOVASCULAR: S1, S2 audible. LUNGS: Mild to moderate degree breath sounds, no wheezing or crackles. ABDOMEN: Soft with massive obesity. Bowel sounds present. EXTREMITIES: Noted with mild edema with severe obesity. CENTRAL NERVOUS SYSTEM: Noted without any gross focal deficit. MUSCULOSKELETAL: Noted without any acute deformities. SKIN: No lesions or rashes. LABORATORY DATA: The patient's CBC, WBC count noted 9.0, hemoglobin and hematocrit normal, platelet count was 210,000. The arterial blood gas pH of 7.36, pCO2 of 59, pO2 of 105, 50% oxygen assist control mode of mechanical ventilation. Culture of the endotracheal aspirate noted to have a growth of gram-negative bacilli, pending identification sensitivities. IMPRESSION: 1. Acute recurrent pneumonia for the patient noticed for bronchoscopy patient kept n.p.o. 2. Severe morbid obesity, bedbound status. 3. Bilateral vocal cord paralysis. 4. History of obstructive sleep apnea disorder. 5. Long-term resident of nursing facility. PLAN OF MANAGEMENT: Continuation of the current antibiotics, bronchodilators, and oxygen supplementation. Proceed with bronchoscopy. Changes in the medication. The patient will be done for the patient based on progression of the illness. She was also noted acute exacerbation of bronchial asthma for the patient's, which has been treated with corticosteroids. No change in treatment needs to be made. Other supportive therapy, plan of management and care plan. [place], [place] PROGRESS NOTE NAME: RUSS CULVER UNIT #: [id number] ROOM: [facility] DOCTOR: RAJIV JONES MD BIRTHDATE: [birth year] RAJIV CHAUDHARY MD CM:NIKKI [id number] RAJIV BHATIA MD 05/05/18 0959 ELMO [email or web address]
--- NOTE | ~2018-04-22 | PR ---
[place], [place] PROGRESS NOTE NAME: RUSS CULVER UNIT #: [id number] ROOM: [facility] DOCTOR: JET BHATIA MD,RAJIV BIRTHDATE: [birth year] DOS: 04/28/2018 PULMONARY PROGRESS NOTE SUBJECTIVE: The patient has been noted comfortable at this time, remains on mechanical ventilator. She has been noted with respiratory distress. The patient with transient hypoxia and other problems, which has been corrected with suction. The patient has other medical management changes. She was continued on assist control, volume control, mechanical ventilation at the present time of 50% oxygen. She has not been noted any acute hemodynamic instability at this time. She was continued on intravenous antibiotics. Currently, comfortably resting. REVIEW OF SYSTEMS: Could not be performed. OBJECTIVE: VITAL SIGNS: For the patient which are recorded showed normal temperature, respiratory rate is 13-16, heart rate 59-60, blood pressure 108/57-133/64, pulse oxygen saturation with 50% oxygen as 95% saturation. NECK: Short and obese. Tracheostomy in place. CARDIOVASCULAR: S1, S2 audible. LUNGS: The patient was noted with mild decreased breath sounds in the lungs bilaterally. ABDOMEN: Soft with severe obesity. EXTREMITIES: The patient noted with edema and obesity. VISIBLE SKIN: No lesions or rashes. MUSCULOSKELETAL: No acute deformities. CENTRAL NERVOUS SYSTEM: Currently sleeping. LABORATORY DATA: Arterial blood gas this morning; pH of 7.28, pCO2 of 65, pO2 of 106. The patient is on 50% oxygen with tidal volume of 550 mL. The arterial blood gas yesterday; pH of 7.30, pCO2 64, pO2 of 74 with 50% oxygen. Blood cultures were noted without any bacterial growth on of this month. Creatinine this morning noted 1.70. IMPRESSION: 1. The patient with acute pneumonia, which has been noted, Pseudomonas aeruginosa as well as urinary tract infection. The patient with Pseudomonas aeruginosa with past failed treatment. 2. The patient with persistent acute on chronic hypercapnic and hypoxic respiratory failure. 3. Severe morbid obesity. 4. Bilateral vocal cord paralysis. 5. Peripheral edema, remains persistent. PLAN OF MANAGEMENT: The patient noted with large volume of air leak with tracheostomy, which has been deflated, which the patient talked previously, noted ineffective ventilation with minute ventilation yesterday noted after some adjustment only about 5.5 liters. The tidal volume was increased to 600 mL with increased volume of the tracheostomy and cough resulting in good improvement in [place], [place] PROGRESS NOTE NAME: RUSS CULVER UNIT #: [id number] ROOM: [facility] DOCTOR: RAJIV JONES MD BIRTHDATE: [birth year] the minute ventilation to about 8 liters plus. This will be noted effective to improve and resolve the current worsening of the hypercapnia. The arterial blood gas will be done in the next couple of hours. Oxygen supplementation also decreased 40%, monitor pulse ox saturation to maintain pulse ox saturation 92% or greater. Other supportive therapy, plan of management and care plan. Prognosis remains guarded. RAJIV CHAUDHARY MD CM:PNTRANS [phone] RAJIV BHATIA MD 04/29/18 0022 interface
[~2018-04-22 15:41] MED LIST changes: +ADMELOG100 UNIT/1 SQ; +ASPIR LOW81 MG PO; +Synthroid,Levo50 MCG PO; +XALATAN 0.005%2.5 ML OU; +XOPENEX1.25 MG/3 INH; +ZOSYN 4/0.5 44.5 GM IV
[2018-04-22 15:44] VITALS: BP 175/109
[2018-04-22 16:03] LABS: ABG BASE EXCESS 0.7 mmol/L (-2.0-2.0); ABG HCO3 28.4 mmol/l (22-26); ABG O2 SATURATION 98.2 % (95-97); ARTERIAL BLOOD GAS PCO2 62.5 mmHg (35-45); ARTERIAL BLOOD GAS PH 7.28 (7.35-7.45)
[2018-04-22 16:05] LABS: HEMATOCRIT 46.2 % (37.0-47.0); HEMOGLOBIN 13.7 g/dl (12.0-16.0); MEAN CELL VOLUME 98.7 fl (81.0-99.0); MEAN CORPUSCULAR HGB 29.3 pg (27.0-31.0); MEAN CORPUSCULAR HGB CONC 29.7 g/dl (33.0-37.0); NUCLEATED RED BLOOD CELL 0.3 % (0.0-0.0); PLATELET COUNT AUTOMATED 273 10*3/uL (130-400); RED BLOOD COUNT 4.68 10*6/uL (4.10-5.10); RED CELL DISTRI WIDTH 16.4 % (0-14.5); WHITE BLOOD COUNT 14.4 10*3/uL (4.8-10.8)
[2018-04-22] MEDS ORDERED: ALLOPURINOL100 MG PO (16:13)
[2018-04-22] MEDS ORDERED: MEDROL DOSEPAK4 MG PO (16:17)
[2018-04-22] MEDS ORDERED: HUMALOG100 UNIT/2 SQ (16:18)
[2018-04-22] MEDS ORDERED: VENTOLIN 02.5 MG/3 M INH (16:18)
[2018-04-22] MEDS ORDERED: MULTIPLE VITAM1 EAC2 PO (16:18)
[2018-04-22 16:19] VITALS: BP 169/73
[2018-04-22] MEDS ORDERED: MYSOLINE50 M2 PO (16:19)
[2018-04-22 16:20] LABS: ALBUMIN 3.1 gm/dl (3.1-4.5); CREATININE 1.63 mg/dL (0.55-1.02); POTASSIUM 4.2 mmol/L (3.5-5.1); TOTAL PROTEIN 7.7 gm/dL (6.4-8.2)
[2018-04-22 16:26] LABS: BASOPHILS 1 % (0-1); TOTAL CELLS COUNTED 100 #CELLS
[2018-04-22 16:27] LABS: PLATELET SUFFICIENCY NORMAL (NORMAL); POLYCHROMASIA SLIGHT
[2018-04-22 16:48] VITALS: BP 139/74
[2018-04-22 17:24] LABS: BILIRUBIN NEGATIVE (NEGATIVE); BLOOD 2+ (NEGATIVE); CLARITY CLEAR (CLEAR); COLOR YELLOW (YELLOW); GLUCOSE NEGATIVE (NEGATIVE); KETONE NEGATIVE (NEGATIVE); LEUKO ESTERASE NEGATIVE (NEGATIVE); NITRITE NEGATIVE (NEGATIVE); UROBILINOGEN 0.2 E.U./dl (0.2-1.0)
[2018-04-22 17:35] VITALS: BP 144/89
[2018-04-22] MEDS ORDERED: HUMULIN R500 UNIT/1 SQ (17:59)
[2018-04-22 18:00] VITALS: BP 155/47
[2018-04-22] MEDS ORDERED: AQUAPHOR396 GM T (18:01)
[2018-04-22 18:10] LABS: BACTERIA 2+; RBC 21-30 rbc/hpf (0-2)
[2018-04-22 19:12] LABS: ABG BASE EXCESS 5.8 mmol/L (-2.0-2.0); ABG HCO3 31.7 mmol/l (22-26); ABG O2 SATURATION 98.2 % (95-97); ARTERIAL BLOOD GAS PCO2 52.9 mmHg (35-45); ARTERIAL BLOOD GAS PH 7.39 (7.35-7.45)
[2018-04-22 20:00] VITALS: BP 120/64
[2018-04-23] VITALS: BP 131/74
[2018-04-23 04:00] VITALS: BP 100/52
[2018-04-23 07:55] LABS: TROPONIN I 0.057 ng/ml (<0.045)
[2018-04-23 08:00] VITALS: BP 160/90
[2018-04-23 08:03] LABS: ABG HCO3 31.3 mmol/l (22-26); ABG O2 SATURATION 98.5 % (95-97); ARTERIAL BLOOD GAS PCO2 50.7 mmHg (35-45); ARTERIAL BLOOD GAS PH 7.407 (7.35-7.45)
[2018-04-23 12:00] VITALS: BP 149/66
[2018-04-23] MEDS ORDERED: LOPRESSOR25 MG PO (12:42)
[2018-04-23 16:00] VITALS: BP 140/71
[2018-04-23 20:00] VITALS: BP 138/72
[2018-04-24] VITALS: BP 155/84
[2018-04-24 04:00] VITALS: BP 157/85
[2018-04-24 05:57] LABS: BASO % 0.2 % (0.0-1.0); CREATININE 1.64 mg/dL (0.55-1.02); HEMATOCRIT 42.3 % (37.0-47.0); HEMOGLOBIN 12.4 g/dl (12.0-16.0); LYMPH # 0.5 10*3/uL (1.3-4.4); LYMPH % 5.9 % (27.0-41.0); MEAN CELL VOLUME 99.1 fl (81.0-99.0); MEAN CORPUSCULAR HGB CONC 29.3 g/dl (33.0-37.0); MEAN PLATELET VOLUME 11.9 fl (9.6-12.3); MONO # 0.6 10*3/uL (0.1-1.0); MONO % 6.5 % (3.0-9.0); NEUT # 7.8 10*3/uL (2.3-7.9); NEUT % 86.7 % (47.0-73.0); PLATELET COUNT AUTOMATED 210 10*3/uL (130-400); POTASSIUM 3.8 mmol/L (3.5-5.1); RED BLOOD COUNT 4.27 10*6/uL (4.10-5.10); RED CELL DISTRI WIDTH 16.4 % (0-14.5)
[2018-04-24 08:00] VITALS: BP 145/74
[2018-04-24 08:03] LABS: ABG BASE EXCESS 6.7 mmol/L (-2.0-2.0); ABG HCO3 33.1 mmol/l (22-26); ABG O2 SATURATION 97.9 % (95-97); ARTERIAL BLOOD GAS PCO2 59.3 mmHg (35-45); ARTERIAL BLOOD GAS PH 7.367 (7.35-7.45)
[2018-04-24 12:00] VITALS: BP 136/88
[2018-04-24 16:00] VITALS: BP 149/86
[2018-04-24 19:52] VITALS: BP 141/63
[2018-04-25] VITALS: BP 111/61
[2018-04-25 04:00] VITALS: BP 100/50
[2018-04-25 08:00] VITALS: BP 114/62
[2018-04-25 12:00] VITALS: BP 104/43
[2018-04-25 12:06] LABS: ACID FAST SPEC PROCESSING Concentration (.)
[2018-04-25 16:00] VITALS: BP 120/79; BP 92/35
[2018-04-25 20:00] VITALS: BP 93/63
[2018-04-26] VITALS: BP 130/56
[2018-04-26 04:00] VITALS: BP 96/66
[2018-04-26 05:57] LABS: CREATININE 1.68 mg/dL (0.55-1.02)
[2018-04-26 08:00] VITALS: BP 114/56
[2018-04-26 12:45] VITALS: BP 118/56
[2018-04-26 16:00] VITALS: BP 115/48
[2018-04-26 20:00] VITALS: BP 111/54
[2018-04-27] VITALS (7 sets, daily range): BP systolic 95–168; BP diastolic 46–71
[2018-04-27 06:12] LABS: CREATININE 1.88 mg/dL (0.55-1.02)
[2018-04-27] MEDS ORDERED: [UNRECOGNIZED DRUG - OTHER] IV (06:48)
[2018-04-27] MEDS ORDERED: ZOSYN 3.373.375 GM/5 IV (06:48)
[2018-04-27 10:40] LABS: ABG BASE EXCESS -0.7 mmol/L (-2.0-2.0); ABG HCO3 29.7 mmol/l (22-26); ABG O2 SATURATION 93.6 % (95-97); ARTERIAL BLOOD GAS PO2 75.3 mmHg (80-90)
[2018-04-27 10:43] LABS: ARTERIAL BLOOD GAS PCO2 81.1 mmHg (35-45); ARTERIAL BLOOD GAS PH 7.19 (7.35-7.45)
[2018-04-27 12:35] LABS: ABG BASE EXCESS 2.8 mmol/L (-2.0-2.0); ABG HCO3 31.4 mmol/l (22-26); ABG O2 SATURATION 98.1 % (95-97); ARTERIAL BLOOD GAS PH 7.255 (7.35-7.45)
[2018-04-27 12:39] LABS: ARTERIAL BLOOD GAS PCO2 73.6 mmHg (35-45)
[2018-04-27 15:12] LABS: ABG BASE EXCESS 3.7 mmol/L (-2.0-2.0); ABG HCO3 31.1 mmol/l (22-26); ABG O2 SATURATION 94.9 % (95-97); ARTERIAL BLOOD GAS PCO2 64.7 mmHg (35-45); ARTERIAL BLOOD GAS PH 7.303 (7.35-7.45); ARTERIAL BLOOD GAS PO2 74.5 mmHg (80-90)
[2018-04-28] VITALS: BP 133/64
[2018-04-28 04:00] VITALS: BP 108/57
[2018-04-28 06:17] LABS: CREATININE 1.7 mg/dL (0.55-1.02)
[2018-04-28 08:00] VITALS: BP 99/42
[2018-04-28 08:01] LABS: ABG BASE EXCESS 2.6 mmol/L (-2.0-2.0); ABG HCO3 30.4 mmol/l (22-26); ABG O2 SATURATION 97.8 % (95-97); ARTERIAL BLOOD GAS PCO2 65.2 mmHg (35-45); ARTERIAL BLOOD GAS PH 7.287 (7.35-7.45)
[2018-04-28 14:42] LABS: ABG BASE EXCESS 4.2 mmol/L (-2.0-2.0); ABG HCO3 30.4 mmol/l (22-26); ABG O2 SATURATION 95.1 % (95-97); ARTERIAL BLOOD GAS PCO2 55.2 mmHg (35-45); ARTERIAL BLOOD GAS PH 7.358 (7.35-7.45); ARTERIAL BLOOD GAS PO2 72.6 mmHg (80-90)
[2018-04-28 16:00] VITALS: BP 124/68
[2018-04-28 20:00] VITALS: BP 106/70
[2018-04-29] VITALS: BP 121/64
[2018-04-29 04:00] VITALS: BP 133/73
[2018-04-29 08:00] VITALS: BP 129/54
[2018-04-29 12:00] VITALS: BP 134/60
[2018-04-29] MEDS ORDERED: [UNRECOGNIZED DRUG - OTHER] IV (15:28)
[2018-06-07 12:05] LABS: ACID FAST CULTURE Negative (.)
== END 2018-04-29 17:40 | disposition other institution (70) | DRG 853 ==
LOC: ED 15:41 → ICCU 16:58 → EDHOLD 16:58 → ICCU 17:41
PROVIDERS: Emergency Medicine; Internal Medicine; Internal Medicine Critical Care Medicine
PROC: 5A1955Z Respiratory Ventilation, Greater than 96 Consecutive Hours (ICD-10-PCS; principal; 2018-04-22)
PROC: 0BC48ZZ Extirpation of Matter from Right Upper Lobe Bronchus, Via Natural or Artificial Opening Endoscopic (ICD-10-PCS; 2018-04-24)
PROC: 0B9H8ZZ Drainage of Lung Lingula, Via Natural or Artificial Opening Endoscopic (ICD-10-PCS; 2018-04-24)
PROC: 0B918ZZ Drainage of Trachea, Via Natural or Artificial Opening Endoscopic (ICD-10-PCS; 2018-04-24)
PROC: 0B928ZZ Drainage of Carina, Via Natural or Artificial Opening Endoscopic (ICD-10-PCS; 2018-04-24)
PROC: 0B9G8ZZ Drainage of Left Upper Lung Lobe, Via Natural or Artificial Opening Endoscopic (ICD-10-PCS; 2018-04-24)
PROC: 0BC38ZZ Extirpation of Matter from Right Main Bronchus, Via Natural or Artificial Opening Endoscopic (ICD-10-PCS; 2018-04-24)
PROC: 0B988ZZ Drainage of Left Upper Lobe Bronchus, Via Natural or Artificial Opening Endoscopic (ICD-10-PCS; 2018-04-24)
PROC: 0B9B8ZZ Drainage of Left Lower Lobe Bronchus, Via Natural or Artificial Opening Endoscopic (ICD-10-PCS; 2018-04-24)
PROC: 0BC58ZZ Extirpation of Matter from Right Middle Lobe Bronchus, Via Natural or Artificial Opening Endoscopic (ICD-10-PCS; 2018-04-24)
PROC: 0BC68ZZ Extirpation of Matter from Right Lower Lobe Bronchus, Via Natural or Artificial Opening Endoscopic (ICD-10-PCS; 2018-04-24)
PROC: 0B9J8ZZ Drainage of Left Lower Lung Lobe, Via Natural or Artificial Opening Endoscopic (ICD-10-PCS; 2018-04-24)
PROC: 0B978ZZ Drainage of Left Main Bronchus, Via Natural or Artificial Opening Endoscopic (ICD-10-PCS; 2018-04-24)
DX: A41.9 Sepsis, unspecified organism (principal); J96.21 Acute and chronic respiratory failure with hypoxia; I50.33 Acute on chronic diastolic (congestive) heart failure; Z99.11 Dependence on respirator [ventilator] status; J95.851 Ventilator associated pneumonia; J15.1 Pneumonia due to Pseudomonas; E87.2 Acidosis; Z93.0 Tracheostomy status; K31.84 Gastroparesis; I13.0 Hypertensive heart and chronic kidney disease with heart failure and stage 1 through stage 4 chronic kidney disease, or unspecified chronic kidney disease; E11.43 Type 2 diabetes mellitus with diabetic autonomic (poly)neuropathy; E66.2 Morbid (severe) obesity with alveolar hypoventilation; Z68.45 Body mass index [BMI] 70 or greater, adult; F33.0 Major depressive disorder, recurrent, mild; T17.590A Other foreign object in bronchus causing asphyxiation, initial encounter; E11.22 Type 2 diabetes mellitus with diabetic chronic kidney disease; N18.3 Chronic kidney disease, stage 3 (moderate); J38.02 Paralysis of vocal cords and larynx, bilateral; R65.20 Severe sepsis without septic shock; E11.65 Type 2 diabetes mellitus with hyperglycemia; M1A.9XX0 Chronic gout, unspecified, without tophus (tophi); F41.1 Generalized anxiety disorder; R62.7 Adult failure to thrive; M54.9 Dorsalgia, unspecified; G89.29 Other chronic pain; E03.9 Hypothyroidism, unspecified; E55.9 Vitamin D deficiency, unspecified; H40.9 Unspecified glaucoma; E78.2 Mixed hyperlipidemia; Z79.4 Long term (current) use of insulin; Z79.899 Other long term (current) drug therapy; Z88.1 Allergy status to other antibiotic agents; Z88.8 Allergy status to other drugs, medicaments and biological substances; Z91.041 Radiographic dye allergy status; Z88.2 Allergy status to sulfonamides; X58.XXXA Exposure to other specified factors, initial encounter; Y93.89 Activity, other specified; Y92.89 Other specified places as the place of occurrence of the external cause; Y99.8 Other external cause status

== ENCOUNTER 2018-04-29 20:07 | Inpatient (IN) | payer MEDICARE, OTHER ==
[~2018-04-29] VITALS: Ht 152.4 cm; Wt 139.3 kg
--- NOTE | ~2018-04-29 | PR ---
[place], [place] PROGRESS NOTE NAME: RUSS CULVER UNIT #: [id number] ROOM: [facility] DOCTOR: CASEY VELEZ MD BIRTHDATE: [birth year] DOS: 05/01/2018 CARDIOLOGY FOLLOWUP VISIT NOTE REASON FOR VISIT: Bradycardia. HISTORY OF PRESENT ILLNESS: The patient is lying comfortably in her bed. She is on the ventilator via tracheostomy. No acute distress. Denies any chest pain, no dizziness. REVIEW OF SYSTEMS: Review of the 8 systems negative except as mentioned above. RHYTHM STRIPS: The patient in sinus rhythm. PHYSICAL EXAMINATION: VITAL SIGNS: Blood pressure 94/60, pulse 60, respirations 18. GENERAL: Alert, comfortable, in no acute distress. HEAD AND NECK: Pupils are round. No jaundice. Tongue was moist. NECK: No distended neck veins. The patient had tracheostomy. CHEST: Nontender. LUNGS: A few scattered rhonchi anteriorly and laterally. ABDOMEN: Morbidly obese. Bowel sounds normal. EXTREMITIES: Showed 1-2+ edema. Distal pulses are fair. SKIN: Warm and dry. No cyanosis. RECTAL: Deferred. MEDICATIONS AND ALLERGIES: Reviewed. IMPRESSION: 1. Sinus bradycardia, asymptomatic, her beta aurora discontinued, heart rates are better. 2. Hypertension, currently pressures are low. Continue to monitor heart rates. 3. Chronic respiratory failure. 4. Chronic dyspnea. 5. Super morbid obesity. 6. Diabetes type 2. 7. Chronic lower extremity edema due to immobility and dependent. RECOMMENDATIONS: 1. Continue current medications. 2. Diuretics as needed for lower extremity edema. 3. Cardiology will sign off and please call if needed. 4. No further cardiac testing at this time. [place], [place] PROGRESS NOTE NAME: RUSS CULVER UNIT #: [id number] ROOM: [facility] DOCTOR: CASEY VELEZ MD BIRTHDATE: [birth year] CASEY VELEZ MD CM:PNTRANS [id number] CASEY VELEZ MD 05/02/18 0046 interface
--- NOTE | ~2018-04-29 | PR ---
[place], [place] PROGRESS NOTE NAME: RUSS CULVER UNIT #: [id number] ROOM: [facility] DOCTOR: JET BHATIA MD,RAJVI BIRTHDATE: [birth year] DOS: 05/01/2018 PULMONARY PROGRESS NOTE SUBJECTIVE: She has been noted comfortable at this time. She did well in the last 24 hours without any issues with the mechanical ventilation and oxygenation. She has not been noted any hemodynamic instability. Intermittent secretion production was noted, which was suctioned out by the nursing and the respiratory staff of the patient from tracheostomy. REVIEW OF SYSTEMS: The patient's review of systems could not be performed, the patient is currently sleeping, but has not been reported any abnormal symptoms with most review of systems for this patient that was done yesterday. OBJECTIVE: VITAL SIGNS: Normal temperature, respiratory rate 12, heart rate 62, blood pressure 106/55. Pulse ox saturation on 40% oxygen with 98% saturation recorded. HEENT: Shows head was atraumatic, eyes nonicterus. Tracheostomy in place. CARDIOVASCULAR: S1, S2 audible. LUNGS: Mild to moderate decreased breath sounds without any wheeze or crackles. ABDOMEN: Soft and obese. EXTREMITIES: No new changes. Chronic edema and obesity. MUSCULOSKELETAL: The patient does not show any acute deformities. CENTRAL NERVOUS SYSTEM: Bedbound status. VISIBLE SKIN: No lesions or rashes. LABORATORY DATA: CBC: WBC count normal, hemoglobin 11.1, platelet count normal. CMP today of the patient, BUN 69, creatinine 1.71, glucose 104. Total protein of 5.7, albumin 2.3. Chest x-ray that was taken yesterday was reviewed, shows infiltration was still noted in the right upper lobe. IMPRESSION: 1. The patient has been noted with acute pneumonia involving the right upper lobe, Pseudomonas aeruginosa, very resistant species, treated with colistin. 2. Urinary tract infection also noted with Pseudomonas aeruginosa, sensitive to Zosyn, treated with intravenous Zosyn. 3. Stable acute on chronic hypercapnic and hypoxic respiratory failure at the present time. 4. Severe morbid obesity. 5. Intermittent secretion and production from the tracheostomy, suctioned out, because of the current acute pneumonia. PLAN OF MANAGEMENT: Continuation of current mechanical ventilatory support with current oxygen supplementation. Continue antibiotics, bronchodilators. Monitor labs. She was also noted with mild acute chronic kidney disease, which has been noted relatively stable. She agreed to be transferred to the long-term acute facility, most likely will be transferred to long-term acute care facility tomorrow. [place], [place] PROGRESS NOTE NAME: RUSS CULVER UNIT #: [id number] ROOM: [facility] DOCTOR: JET BHATIA MD,RAJIV BIRTHDATE: [birth year] RAJIV CHAUDHARY MD CM:PNTRANS [id number] RAJIV BHATIA MD 05/01/18 1019 interface
--- NOTE | ~2018-04-29 | WRIGHTHP ---
[place], [place] PATIENT HISTORY AND PHYSICAL EXAM NAME: RUSS CULVER UNIT #: [id number] ROOM: [facility]- DOCTOR: AIMEE GARCIA MD BIRTHDATE: [birth year] DOS: 04/29/2018 HISTORY OF PRESENT ILLNESS: The patient is a 67-year-old female with chronic respiratory failure, was just discharged from [facility] back to [facility]. Apparently when nursing staff were turning her, she turned blue and hypoxemic. The patient is morbidly obese and has chronic respiratory failure and according to nursing staff in the ICU, she normally does turn blue when she is turned but she does recover when she is put back on her back. The patient was sent back to the Emergency Department where her pulse ox was found to be 98% and the patient was breathing with the ventilator without any distress. Apparently, the nursing staff at [facility] were not comfortable in taking the patient and the patient was recommended by the Emergency Department for admission back to the ICU. In the ICU, the patient appears comfortable. She has no new complaints or any recollection of what happened at [facility]. No chest pains, no increasing shortness of breath. No GI or urinary symptoms. SYSTEMS REVIEW: RESPIRATORY: Chronic respiratory failure with tracheostomy tube and chronic ventilator dependence. The patient with Pseudomonas aeruginosa pneumonia. Chronic gouty arthritis. Adult failure to thrive with generalized anxiety disorder. Chronic back pain. Hyperlipidemia. Hypothyroidism. Benign essential hypertension. Uncontrolled type 2 diabetes mellitus. Severe generalized anxiety disorder. Morbid obesity. Chronic gouty arthritis. Vitamin D deficiency. FAMILY HISTORY: Noncontributory. SOCIAL HISTORY: Denies smoking cigarettes, alcohol and drug abuse. PATIENT'S MEDICATIONS: The patient's management was: The patient remains with a tracheostomy tube and on mechanical ventilation. She takes potassium, omeprazole, magnesium, lisinopril, Lasix, aspirin, allopurinol, Zoloft, primidone, levothyroxine, latanoprost eyedrops, Lipitor, Sinemet, tramadol, buspirone, Zosyn, metoprolol. PHYSICAL EXAMINATION: GENERAL: Alert, oriented x 3, morbidly obese, very weak with tracheostomy tube in place and patient on mechanical ventilation. LABORATORY DATA: Chest x-ray with bibasilar opacities, consider atelectasis and persistent right upper lobe opacity, suspicious for infiltrate. IMPRESSION: 1. The patient was recently treated for Pseudomonas aeruginosa pneumonia and cleared by marine technician, Dr. Turner, to go back to the [facility]. Apparently, the patient desaturated when she was being turned and sent back to the Emergency Department. Dr. Turner agreed with admission and this time referral to LTAC facility and to continue treatment, she already received at [place], [place] PATIENT HISTORY AND PHYSICAL EXAM NAME: RUSS CULVER UNIT #: [id number] ROOM: [facility] DOCTOR: JOSE GUZMAN,AIMEE Parada BIRTHDATE: [birth year] Hospital. 2. Diastolic type congestive heart failure, compensated. 3. Morbid obesity and advance adult failure to thrive. The patient worked with physical therapy. 4. Benign essential hypertension, treated and controlled. 5. Type 2 diabetes mellitus. Blood sugars are being monitored and treated. 6. Chronic diastolic type congestive heart failure, recently treated with diuretics, asymptomatic. 7. Benign essential hypertension, treated and controlled. 8. Hypothyroidism, treated with acquired hypothyroidism, treated with supplements. 9. Chronic gouty arthritis, asymptomatic at present time. 10. Mixed hyperlipidemia, to be followed and treated. A consult has been obtained with the [facility] to move her to a long-term acute care facility. AIMEE GARCIA MD CM:HISPHYS:PATIENT HISTORY AND PHYSICAL EXAMINATION [id number] AIMEE GARCIA MD 05/10/18 0746 interface
--- NOTE | ~2018-04-29 | CON ---
[place], [place] REPORT OF CONSULTATION NAME: RUSS CULVER UNIT #: [id number] ROOM: [facility] DOCTOR: JET BHATIA MD,RAJIV BIRTHDATE: [birth year] DOS: 04/30/2018 PULMONARY CONSULTATION, EVALUATION AND MANAGEMENT CONSULTATION REQUESTED BY: Dr. Sandi Lopes. REASON FOR CONSULTATION: For assessment of the recurrent hospitalization on the same day of discharge. HISTORY OF PRESENT ILLNESS: This is a 67-year-old white female who has been diagnosed with recurrent Pseudomonas aeruginosa pneumonia and also noted urinary tract infection. She has been treated in the hospital from the date of 04/22/2018 and discharged to the [facility] for continued mechanical ventilation, medical management of Pseudomonas aeruginosa pneumonia with 2 antibiotics yesterday. The [facility] and [facility] the [facility] after the patient developed cyanosis at the [facility]. The patient was reassessed in the Emergency Room and currently admitted to the hospital for further care. She has been noted awake and alert to the baseline this morning. She has been able to speak with some deflation of the tracheostomy and cuff while on mechanical ventilator and also able to eat her food with that. She has not been reporting any symptoms of increased shortness of breath. Cough has been noted with increased sputum expectoration and chest congestion noted in the last 24 hours and the patient was examined. She denies symptoms of wheezing or chest pain. She has been currently treated in the hospital with the same diagnosis of acute pneumonia. REVIEW OF SYSTEMS: GENERAL: Limited because of the patient's current tracheostomy, use of mechanical ventilation; however, the patient denies any symptoms of fever or chills. EYES: Denies any burning, redness, discharge. EARS, NOSE AND THROAT SYMPTOMS: Currently, tracheostomy in place. Denies any sore throat. CARDIOVASCULAR: Denies anginal pain. The patient noted with chronic edema of the lower extremities. GASTROINTESTINAL SYMPTOMS: Without any symptoms of abdominal pain, nausea, vomiting or diarrhea noted at this time. GENITOURINARY SYMPTOMS: There were no symptoms of dysuria, suprapubic pain reported. MUSCULOSKELETAL SYMPTOMS: Chronic pain controlled with current pain medications. SKIN: Denies lesions or rashes. CENTRAL NERVOUS SYSTEM: Bedbound status, which is chronic. Remaining systems were reviewed. They were noted all negative. PAST MEDICAL HISTORY: Reviewed since my consultation that was done on 04/23/2018 remains unchanged except changes, which were reported in the history of present illness that included acute Pseudomonas aeruginosa diagnosed the patient and treated with therapeutic bronchoscopy, urinary tract infection, [place], [place] REPORT OF CONSULTATION NAME: RUSS CULVER UNIT #: [id number] ROOM: [facility] DOCTOR: JET BHATIA MD,RAJIV BIRTHDATE: [birth year] Pseudomonas aeruginosa. MEDICATIONS: Administered were noted use of zinc oxide, potassium chloride, omeprazole, multivitamin, magnesium oxide, lisinopril, Lasix, folic acid, vitamin D, aspirin, allopurinol, albuterol sulfate, sliding insulin coverage, sertraline, primidone, levothyroxine, latanoprost eye drops, Sinemet, Lipitor, tramadol, BuSpar, colistin, IV Zosyn, lorazepam and others. DRUG ALLERGIES: Noted: 1. TETRACYCLINE. 2. SULFA DRUGS. 3. PHENYLALANINE. 4. DEMEROL. PHYSICAL EXAMINATION: GENERAL: A 67-year-old female noted currently fully awake and alert at this time without any acute distress. Height of 5 feet, weight of 327 pounds, BMI of 63. VITAL SIGNS: For the patient, which are recorded showed the temperature noted as normal, respiratory rate of 18-12, heart rate of 46-73, blood pressure 141/81-113/50. Pulse oxygen saturation 40% oxygen on 95% saturation. HEENT: Head was atraumatic. Eyes nonicterus. NECK: Neck was short and obese. Tracheostomy in place and intact. CARDIOVASCULAR: S1, S2 is audible. LUNGS: The patient noted without any wheezing or crackles at the present time. ABDOMEN: Soft and obese. EXTREMITIES: The patient without any new changes. Chronic edema of the lower extremities noted. VISIBLE SKIN: No lesions or rashes. CENTRAL NERVOUS SYSTEM: The patient with bedbound status noted, which is chronic. MUSCULOSKELETAL: Without any acute deformities. LABORATORY DATA: The arterial blood gas that was done yesterday on the 50% oxygen, pH of 7.37, pCO2 of 55.2, pO2 131. IMPRESSION: 1. The patient who had been previously treated for the acute pneumonia with Pseudomonas aeruginosa resistant to multiple antibiotics. 2. Also urinary tract infection noted, sensitive to the IV Zosyn, currently treated for that. 3. The patient with morbid obesity with chronic respiratory failure as well with ventilator dependency. 4. Recurrent hospitalization recently, inability to be taking care of the patient at the long term facility, chronic ventilator support. 5. Protein-calorie malnutrition history as well. 6. Severe morbid obesity. 7. Obstructive sleep apnea disorder. PLAN OF CARE: A detailed discussion has been done with the patient about the [place], [place] REPORT OF CONSULTATION NAME: RUSS CULVER UNIT #: [id number] ROOM: [facility] DOCTOR: JET BHATIA MD,RAJIV BIRTHDATE: [birth year] assessment for the hospice care or transfer to the long-term acute care facility or [facility]. The patient is refusing to go to any of the other facility at this time, but later on convinced the patient to be assessed for possibility of some facility, which could be found closer in the [facility]. financial services technician has been already consulted for that. I will be holding a chest x-ray as well. No change in antibiotics. Routine lab monitoring will be started with the CBC and CMP to be done tomorrow morning. The chest x-ray will be obtained portable today to reassess any changes, which might have occurred since discharge from the hospital for the pneumonia. Other supportive therapy, plan of management to be continued accordingly. Deep venous thrombosis prophylaxis, other additional care and palliative care. The patient does wish to keep her code status to the full code. Thanks for allowing me to participate in the care of this patient. RAJIV CHAUDHARY MD CM:CONSTR:REPORT OF CONSULTATION 1247 05/01/18 0218 interface
--- NOTE | ~2018-04-29 | DS ---
[place], [place] DISCHARGE SUMMARY NAME: RUSS CULVER UNIT #: [id number] ROOM: [facility] DOCTOR: AIMEE GARCIA MD BIRTHDATE: [birth year] DOS: 05/01/2018 DISCHARGE DIAGNOSES: 1. The patient going to [facility] facility by the name of [facility] for continued care for acute over chronic respiratory failure because she could not be managed at [facility]. 2. Chronic respiratory failure with obesity hypoventilation syndrome. Tracheostomy in place. 3. Recent Pseudomonas aeruginosa pneumonia. 4. Chronic gouty arthritis. 5. Adult failure to thrive. 6. Generalized anxiety disorder. 7. Chronic back pain. 8. Mixed hyperlipidemia. 9. Acquired hypothyroidism. 10. Benign essential hypertension. 11. Type 2 diabetes mellitus, uncontrolled. 12. Morbid obesity. 13. Generalized anxiety disorder. 14. Glaucoma. 15. Chronic gouty arthritis. 16. Vitamin D deficiency. HOSPITAL COURSE: The patient was sent over as soon as she went to [facility]. Apparently, nursing staff at the [facility] panicked when they were turning her and she became blue which is normal for the patient. The patient had already achieved maximal benefit from the last admission at [facility] and was already treated for pneumonia with Pseudomonas aeruginosa and cleared by disaster recovery analyst, Dr. Turner before she was transferred to this facility. Since the patient was sent back to the Emergency Department, she was admitted to the ICU again and no new treatment was recommended by Dr. Turner. The patient remains on the same ventilator settings and is now being sent over to a higher level of care at [facility] facility by name of [facility] tomorrow and continued on IV Zosyn and colimycin. 1. Parkinson's disease, treated with Sinemet. 2. Glaucoma, treated with latanoprost eyedrops. 3. Acquired hypothyroidism replaced with levothyroxine. 4. Major depression, recurrent, mild, treated with Zoloft. 5. Chronic gouty arthritis, treated with allopurinol. 6. Chronic back pains and lumbar spondylosis, treated with tramadol. 7. Mixed hyperlipidemia, treated with atorvastatin. 8. Morbid obesity, the patient works with Dietary. 9. Benign essential hypertension, treated and controlled. 10. Chronic gouty arthritis, asymptomatic with treatment with allopurinol. 11. Moderate to severe protein-calorie malnutrition with an albumin of 2.3. LABORATORY DATA: Hemoglobin 11, white cell count of 10,000, BUN 69, creatinine 1.7. Normal serum electrolytes. [place], [place] DISCHARGE SUMMARY NAME: RUSS CULVER UNIT #: [id number] ROOM: [facility] DOCTOR: JOSE GUZMAN,AIMEE Parada BIRTHDATE: [birth year] DISCHARGE MANAGEMENT: Zoloft 100 mg a day, primidone 50 mg a day, levothyroxine 250 mcg daily, latanoprost eyedrops at bedtime, Sinemet 25/100 b.i.d., Lipitor 40 mg at bedtime, tramadol 50 mg b.i.d., Tylenol 1000 mg every 8 hours as needed for pain, buspirone 10 mg every 8 hours, colistimethate IV 150 mg every 12 hours, IV Zosyn 3.375 mg every 8 hours, lorazepam 0.5 mg every 6 hours p.r.n. for anxiety. Ventilator settings: The patient is on a CMV of 12, FiO2 of 50%, tidal volume 600, PEEP of 5. She also takes metoprolol 12.5 mg b.i.d., Lipitor 40 mg daily, potassium chloride 20 mEq daily, magnesium oxide 400 mg 3 times a day, omeprazole 20 mg a day, folic acid 1 mg daily, lisinopril 2.5 mg daily. AIMEE GARCIA MD CM:RAJESH [phone] AIMEE GARCIA MD 05/01/182122 interface
--- NOTE | ~2018-04-29 | PR ---
[place], [place] PROGRESS NOTE NAME: RUSS CULVER UNIT #: [id number] ROOM: [facility] DOCTOR: JET BHATIA MD,RAJIV BIRTHDATE: [birth year] DOS: 05/02/2018 PULMONARY PROGRESS NOTE SUBJECTIVE: The patient noted comfortable at this time, resting on the mechanical ventilator. She was planned for transfer to long-term acute care facility today. She has been noted some cough at times with intermittent purulent secretion, which has been suctioned up at the nursing and respiratory staff. She has not been noted any changes in the oxygen need for the patient to continue 40% oxygen supplementation with assist control, volume control, mechanical ventilation. OBJECTIVE: VITAL SIGNS: For the patient which were recorded showed the temperature noted as normal. The respiratory rate 16, heart rate 72, blood pressure 132/63. Pulse oxygen saturation recorded on 40%, 97% saturation. HEENT: Shows tracheostomy in place. NECK: Supple. CARDIOVASCULAR: S1, S2 audible. LUNGS: Mild to moderate decreased breath sounds bilaterally. ABDOMEN: Soft and obese. EXTREMITIES: Chronic edema. LABORATORY DATA: CMP today; BUN 68, creatinine 1.78. CBC this morning, normal WBC count, hemoglobin 10.2, platelet count normal. IMPRESSION: The patient with bilateral acute pneumonia, Pseudomonas aeruginosa with acute on chronic hypercapnic hypoxic respiratory failure with chronic ventilatory dependency as well. PLAN OF TREATMENT: No changes in the plan of care at this time. Continuation of other supportive plan of management and treatments. RAJIV CHAUDHARY MD CM:PNTRANS 1302 [id number] RAJIV BHATIA MD 05/03/18 0030 interface
--- NOTE | ~2018-04-29 | PR ---
[place], [place] PROGRESS NOTE NAME: RUSS CULVER UNIT #: [id number] ROOM: [facility] DOCTOR: AIMEE GARCIA MD BIRTHDATE: [birth year] DOS: 05/02/2018 This is a progress note and addendum to discharge summary from yesterday. SUBJECTIVE: The patient is breathing comfortably with mechanical ventilator. Tracheostomy in place. OBJECTIVE: VITAL SIGNS: Blood pressure 132/62, heart rate 72 beats per minute, breathing 16 times per minute, temperature 98 degrees Fahrenheit. GENERAL: Morbid obesity, generalized weakness, tracheostomy and mechanical ventilation. HEENT AND NECK: Exam within normal limits. CARDIOVASCULAR SYSTEM: Heart rate is regular in rate and rhythm. S1 and S2 normally audible. LUNGS: Clear to auscultation. ABDOMEN: Soft, nontender. No obvious organomegaly. Bowel sounds are present. EXTREMITIES: Without significant cyanosis or edema. IMPRESSION: 1. Chronic respiratory failure. The patient remains on tracheostomy tube and mechanical ventilator, breathing comfortably now. 2. Recent pneumonia with pseudomonas aeruginosa, treated with Fortaz. 3. Benign essential hypertension, treated and controlled. 4. Type 2 diabetes mellitus, uncontrolled, blood sugars being monitored and treated. Last blood sugar was 131. 5. Advance adult failure to thrive and chronic respiratory failure with morbid obesity. 6. Acquired hypothyroidism, treated with thyroid supplements. AIMEE GARCIA MD CM:PNTRANS [id number] AIMEE GARCIA MD 05/03/18 0711 interface
--- NOTE | ~2018-04-29 | CON ---
[place], [place] REPORT OF CONSULTATION NAME: RUSS CULVER UNIT #: [id number] ROOM: [facility] DOCTOR: AGUSTIN GUZMAN,CASEY BIRTHDATE: [birth year] DOS: 04/30/2018 CARDIOLOGY CONSULTATION REASON FOR CONSULTATION: Sinus bradycardia. CLINICAL HISTORY: The patient is a 67-year-old patient who has history of hypertension, chronic kidney disease, morbid obesity, chronic respiratory failure, was brought to the Emergency Room from [facility] for shortness of breath. Apparently, she was discharged the same day and was brought back to the hospital because of her oxygen desaturation and shortness of breath. The patient was admitted to the ICU and due to her intermittent sinus bradycardia, Cardiology was consulted. The patient is alert and oriented at the time of my examination. Denies any chest pain. The patient was still short of breath. No dizziness, no syncope. She denies any palpitations or orthopnea. No nausea, vomiting, diarrhea. No headache. No tingling, numbness or weakness. No bladder or bowel symptoms. The patient did have occasional cough. The patient has a chronic tracheostomy for respiratory failure. REVIEW OF SYSTEMS: Review of the 10 system somewhat limited, obtained from the chart due to the patient unable to communicate due to her tracheostomy and on ventilator. PAST MEDICAL HISTORY: 1. Chronic respiratory failure, status post tracheostomy. The patient on ventilator. 2. Super morbid obesity. 3. Hypertension. 4. Diabetes type 2. 5. Mild tricuspid regurgitation. 6. Chronic kidney disease. 7. Parkinson's disease. 8. History of diastolic heart failure. PAST SURGICAL HISTORY: History of tracheostomy. SOCIAL HISTORY: The patient does not smoke or drink. No illicit drugs. FAMILY HISTORY: Father and mother . MEDICATIONS: Home medications reviewed. ALLERGIES: THE PATIENT IS ALLERGIC TO TAPE, BACTRIM, MEPERIDINE, TETRACYCLINE. PHYSICAL EXAMINATION: VITAL SIGNS: Blood pressure 113/50, pulse 48, respirations 12, weight 148.5 kilos, BMI 63.9. GENERAL: The patient is alert, comfort, in mild respiratory distress. HEENT: Pupils are round and equal. No jaundice. Tongue was moist. NECK: No distended neck veins. The patient had tracheostomy. [place], [place] REPORT OF CONSULTATION NAME: RUSS CULVER UNIT #: [id number] ROOM: [facility] DOCTOR: AGUSTIN GUZMAN,CASEY BIRTHDATE: [birth year] CHEST: Nontender. LUNGS: A few scattered rhonchi anteriorly and laterally. HEART: Regular rhythm, no S3. Grade 1/6 systolic murmur at the right sternal border. No palpable thrills. ABDOMEN: Morbidly obese, nontender. Bowel sounds normal. EXTREMITIES: Showed bilateral lower extremity edema. Distal pulses are fair. SKIN: Warm and dry. No cyanosis, no clubbing. RECTAL: Deferred. NEUROLOGIC: Limited. The patient has no focal neurologic deficit. REVIEW OF THE DIAGNOSTIC TESTS: EKG showed sinus bradycardia, nonspecific ST changes. Pertinent labs including CBC, BMP and thyroid function tests reviewed. Her CBC, BMP from 04/24/2018 and thyroid function test on 04/10/2018. Echo from 03/2016 reviewed. IMPRESSION: 1. Normal sinus bradycardia, asymptomatic. 2. Shortness of breath due to chronic acute on chronic respiratory failure. The patient was on trach ventilator via tracheostomy. 3. Super morbid obesity. 4. Hypertension. 5. Diabetes type 2. 6. Mild tricuspid regurgitation. 7. Chronic kidney disease, stage 3 or 4. RECOMMENDATIONS: 1. Continue her current medications. I would recommend to discontinue her low-dose beta aurora, metoprolol 12.5 mg b.i.d. due to bradycardia. 2. Monitor blood pressures. If blood pressures are high, adjust other blood pressure medications and avoid any AV blocking medications. 3. Echo from 03/2018 reviewed. 4. No further cardiac testing at this time and Cardiology will see as needed. 5. There is no family at bedside at the time of examination. CASEY VELEZ MD CM:CONSTR:REPORT OF CONSULTATION 45 05/01/18 0235 interface
[~2018-04-29 20:07] MED LIST changes: +AQUAPHOR396 GM T; +HUMALOG100 UNIT/2 SQ; +HUMULIN R500 UNIT/1 SQ; +LOPRESSOR25 MG PO; +MEDROL DOSEPAK4 MG PO; +MULTIPLE VITAM1 EAC2 PO; +VENTOLIN 02.5 MG/3 M INH; +ZOSYN 3.373.375 GM/5 IV; +[UNRECOGNIZED DRUG - OTHER] IV; +[UNRECOGNIZED DRUG - OTHER] IV
[2018-04-29 20:16] VITALS: BP 153/68
[2018-04-29 20:41] VITALS: BP 150/70
[2018-04-29 21:11] VITALS: BP 98/50
[2018-04-29 21:41] LABS: ABG BASE EXCESS 5.5 mmol/L (-2.0-2.0); ABG HCO3 31.7 mmol/l (22-26); ABG O2 SATURATION 99.2 % (95-97); ARTERIAL BLOOD GAS PCO2 55.2 mmHg (35-45); ARTERIAL BLOOD GAS PH 7.375 (7.35-7.45)
[2018-04-29 21:56] VITALS: BP 146/82
[2018-04-29 22:00] VITALS: BP 141/74
[2018-04-30] VITALS: BP 105/41
[2018-04-30 04:00] VITALS: BP 113/50
[2018-04-30 08:00] VITALS: BP 141/81
[2018-04-30 12:00] VITALS: BP 141/67
[2018-04-30 16:00] VITALS: BP 117/57
[2018-04-30 20:00] VITALS: BP 122/50
[2018-05-01] VITALS: BP 139/74
[2018-05-01 04:00] VITALS: BP 94/60
[2018-05-01 04:59] LABS: BASO # 0.1 10*3/uL (0.0-0.1); BASO % 0.5 % (0.0-1.0); EOS # 0.5 10*3/uL (0.0-0.4); EOS % 5.3 % (1.0-4.0); HEMATOCRIT 37.6 % (37.0-47.0); HEMOGLOBIN 11.1 g/dl (12.0-16.0); LYMPH # 1.9 10*3/uL (1.3-4.4); LYMPH % 19.2 % (27.0-41.0); MEAN CELL VOLUME 99.2 fl (81.0-99.0); MEAN CORPUSCULAR HGB 29.3 pg (27.0-31.0); MEAN CORPUSCULAR HGB CONC 29.5 g/dl (33.0-37.0); MEAN PLATELET VOLUME 12.1 fl (9.6-12.3); MONO # 0.8 10*3/uL (0.1-1.0); MONO % 7.6 % (3.0-9.0); NEUT # 6.7 10*3/uL (2.3-7.9); NEUT % 66.8 % (47.0-73.0); PLATELET COUNT AUTOMATED 170 10*3/uL (130-400); RED BLOOD COUNT 3.79 10*6/uL (4.10-5.10); RED CELL DISTRI WIDTH 16.4 % (0-14.5); WHITE BLOOD COUNT 10.1 10*3/uL (4.8-10.8)
[2018-05-01 05:27] LABS: ALBUMIN 2.3 gm/dl (3.1-4.5); ALKALINE PHOSPHATASE 106 U/L (45-117); BUN 69 mg/dl (7-24); CHLORIDE 106 mmol/L (98-107); CREATININE 1.71 mg/dL (0.55-1.02); POTASSIUM 4.2 mmol/L (3.5-5.1); SGOT/AST 11 IU/L (3-35); SODIUM 145 mmol/L (136-145); TOTAL PROTEIN 5.7 gm/dL (6.4-8.2)
[2018-05-01 05:34] LABS: SGPT/ALT < 6 U/L (12-78)
[2018-05-01 08:00] VITALS: BP 106/55
[2018-05-01 12:00] VITALS: BP 97/47
[2018-05-01 16:00] VITALS: BP 101/59
[2018-05-01 20:00] VITALS: BP 100/59
[2018-05-02] VITALS: BP 139/68
[2018-05-02 04:00] VITALS: BP 132/63
[2018-05-02 05:54] LABS: ALBUMIN 2.2 gm/dl (3.1-4.5); ALKALINE PHOSPHATASE 100 U/L (45-117); BUN 68 mg/dl (7-24); CHLORIDE 105 mmol/L (98-107); CREATININE 1.78 mg/dL (0.55-1.02); POTASSIUM 4.1 mmol/L (3.5-5.1); SGOT/AST 9 IU/L (3-35); SODIUM 143 mmol/L (136-145); TOTAL PROTEIN 5.5 gm/dL (6.4-8.2)
[2018-05-02 05:58] LABS: SGPT/ALT < 6 U/L (12-78)
[2018-05-02 06:12] LABS: BASO # 0.1 10*3/uL (0.0-0.1); BASO % 0.5 % (0.0-1.0); EOS # 0.5 10*3/uL (0.0-0.4); EOS % 4.5 % (1.0-4.0); HEMATOCRIT 35.2 % (37.0-47.0); HEMOGLOBIN 10.2 g/dl (12.0-16.0); LYMPH # 1.7 10*3/uL (1.3-4.4); LYMPH % 15.6 % (27.0-41.0); MEAN CELL VOLUME 100.6 fl (81.0-99.0); MEAN CORPUSCULAR HGB 29.1 pg (27.0-31.0); MEAN PLATELET VOLUME 12.5 fl (9.6-12.3); MONO # 0.9 10*3/uL (0.1-1.0); MONO % 8.1 % (3.0-9.0); NEUT # 7.6 10*3/uL (2.3-7.9); NEUT % 70.7 % (47.0-73.0); PLATELET COUNT AUTOMATED 164 10*3/uL (130-400); RED CELL DISTRI WIDTH 16.6 % (0-14.5); WHITE BLOOD COUNT 10.8 10*3/uL (4.8-10.8)
[2018-05-02 08:00] VITALS: BP 101/70; BP 99/49
[2018-05-02] MEDS ORDERED: ZOSYN 3.373.375 GM/5 IV (08:57)
[2018-05-02] MEDS ORDERED: COLISTIMETHATE150 M1 IV (08:58)
== END 2018-05-02 13:00 | DRG 208 ==
LOC: ED 20:07 → ICCU 21:26 → EDHOLD 21:26 → ICCU 21:53
PROVIDERS: Emergency Medicine; Internal Medicine Critical Care Medicine
PROC: 5A1945Z Respiratory Ventilation, 24-96 Consecutive Hours (ICD-10-PCS; principal; 2018-04-29)
DX: J96.20 Acute and chronic respiratory failure, unspecified whether with hypoxia or hypercapnia (principal); E43 Unspecified severe protein-calorie malnutrition; J15.1 Pneumonia due to Pseudomonas; G20 Parkinson's disease; Z99.11 Dependence on respirator [ventilator] status; E11.22 Type 2 diabetes mellitus with diabetic chronic kidney disease; I50.32 Chronic diastolic (congestive) heart failure; I13.0 Hypertensive heart and chronic kidney disease with heart failure and stage 1 through stage 4 chronic kidney disease, or unspecified chronic kidney disease; E66.2 Morbid (severe) obesity with alveolar hypoventilation; F33.0 Major depressive disorder, recurrent, mild; N39.0 Urinary tract infection, site not specified; N18.4 Chronic kidney disease, stage 4 (severe); Z68.44 Body mass index [BMI] 60.0-69.9, adult; Z93.0 Tracheostomy status; M1A.9XX0 Chronic gout, unspecified, without tophus (tophi); R62.7 Adult failure to thrive; F41.1 Generalized anxiety disorder; M54.9 Dorsalgia, unspecified; G89.29 Other chronic pain; E78.2 Mixed hyperlipidemia; E03.9 Hypothyroidism, unspecified; E11.65 Type 2 diabetes mellitus with hyperglycemia; H40.9 Unspecified glaucoma; E55.9 Vitamin D deficiency, unspecified; M47.896 Other spondylosis, lumbar region; Z87.01 Personal history of pneumonia (recurrent); Z79.899 Other long term (current) drug therapy; Z88.8 Allergy status to other drugs, medicaments and biological substances; Z88.1 Allergy status to other antibiotic agents; Z91.041 Radiographic dye allergy status

== ENCOUNTER 2018-08-06 06:25 | Inpatient (IN) | payer MEDICARE, OTHER ==
[2018-08-06] VITALS (8 sets, daily range): BP systolic 98–158; BP diastolic 46–92
[~2018-08-06] VITALS: Ht 142.2 cm; Wt 132.9 kg
--- NOTE | ~2018-08-06 | PR ---
[place], [place] PROGRESS NOTE NAME: RUSS CULVER UNIT #: [id number] ROOM: [facility] DOCTOR: CESILIA SOLANO MD BIRTHDATE: [birth year] DOS: 08/07/2018 SUBJECTIVE: The patient is doing fine without any complaint. She is resting comfortably, had a good night sleep. She does not have any complaints today. OBJECTIVE: VITAL SIGNS: Blood pressure is 139/67, pulse of 85, respirations 20, temperature 98.5. LUNGS: Clear. HEART: Regular. ABDOMEN: Obese. EXTREMITIES: Without any edema. ASSESSMENT AND PLAN: 1. Acute respiratory failure, hypoxic as well as hypercapnic, stable. 2. Chronic respiratory failure from obesity hypoventilation ____. 3. Chronic kidney disease with hyperkalemia, possibly from Aldactone, which will be discontinued. The patient has achieved a maximum benefit from a stay here, suggested hospice care at the correction. CESILIA SOLANO MD CM:PNTRANS [id number] CESILIA SOLANO MD 08/07/18 1735 interface
--- NOTE | ~2018-08-06 | EKG ---
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
--- NOTE | ~2018-08-06 | WRIGHTHP ---
[place], [place] PATIENT HISTORY AND PHYSICAL EXAM NAME: RUSS CULVER UNIT #: [id number] ROOM: [facility] DOCTOR: CESILIA SOLANO MD BIRTHDATE: [birth year] DOS: 08/06/2018 HISTORY OF PRESENT ILLNESS: This patient is very well known to us, a 67-year-old, who is a resident of [facility]. The patient's nurse at the [facility] called that the patient was hypoxic on the ventilator and they were bagging her to get a saturation in the 90s, I advised the patient be either sent to the Emergency Room or kept comfortable at the skilled nursing. The patient was sent to the Emergency Room where she was evaluated; by then her saturation was already was up to 97%. The patient tells me that she was getting suctioned before that happened, and she did get a new ventilator recently. She denies having any chest pains, palpitations, does not have any fever or chills, does not have any abdominal pain, nausea, or any emesis. PAST MEDICAL HISTORY: Significant for: 1. Chronic respiratory failure. 2. Obesity, hypoventilation. 3. Type 2 diabetes mellitus. 4. 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 5. Adult failure to thrive. 6. Generalized anxiety disorder. 7. Chronic low back pain. 8. Benign hypertension. 9. Type 2 diabetes mellitus. MEDICATIONS: Medications that she is on are Xalatan eyedrops, Xopenex 0.63 q. 6 hours, Tylenol 325 q. 6 hours, aspirin 81 daily, atorvastatin 40 daily, BuSpar 10 q. 8 hours, carbidopa/levodopa 1 tablet twice a day, vitamin D 4000 units daily, Uloric 40 daily, isosorbide 60 daily, levothyroxine 250 mcg daily, Ativan 0.5 q. 6 hours p.r.n., omeprazole 20 b.i.d., potassium 10 b.i.d., sertraline, Zoloft 100 at bedtime, spironolactone 100 daily, nitroglycerin sublingual p.r.n., sliding scale. SOCIAL HISTORY: Nonsmoker. She is a resident of [facility]. PHYSICAL EXAMINATION: GENERAL: She is awake and alert and oriented, sleepy and tired looking. VITAL SIGNS: Blood pressure is 158/92, pulse of 80 regular, respirations 20, and temperature 98.1. LUNGS: Diminished breath sounds, diffuse rhonchi heard. HEART: Regular. ABDOMEN: Obese. EXTREMITIES: Without any edema. LABORATORY DATA: ABG 7.2, pCO2 of 51.7, pO2 of 129. Sodium 141, potassium 5.6, chloride 110, bicarbonate 23, BUN 45, creatinine 1.88, troponin was 0.079. Amylase and lipase normal. ASSESSMENT AND PLAN: 1. The patient with acute respiratory failure hypoxic as well as hypercapnic. [place], [place] PATIENT HISTORY AND PHYSICAL EXAM NAME: RUSS CULVER UNIT #: [id number] ROOM: [facility]- DOCTOR: CESILIA SOLANO MD BIRTHDATE: [birth year] The patient's vent adjustments were made; new ventilator in the ER seems to have stabilized. 2. Chronic respiratory failure, ventilator dependent with chronic pseudomonas in the sputum. The patient is ordered Zosyn. Chest x-ray is unremarkable in the ER. 3. Hypokalemia, possibly from spironolactone, which will be discontinued. 4. Type 2 diabetes mellitus. Blood sugars to be checked and coverage scale will be ordered. CESILIA SOLANO MD CM:HISPHYS:PATIENT HISTORY AND PHYSICAL EXAMINATION [id number] CESILIA SOLANO MD 08/13/18 1022 interface
--- NOTE | ~2018-08-06 | CON ---
[place], [place] REPORT OF CONSULTATION NAME: RUSS CULVER UNIT #: [id number] ROOM: [facility]- DOCTOR: JET BHATIA MD,RAJIV BIRTHDATE: [birth year] DOS: 08/07/2018 REASON FOR CONSULTATION: Assess the patient's current symptoms of shortness of breath. HISTORY OF PRESENT ILLNESS: This is a 67-year-old female patient with chronically vent dependent several issues. The patient currently stays at the nursing facility. The patient has been admitted to the hospital, sent to a long-term acute care facility in [place]. The patient has been transferred back to the [facility]. [facility] jail, was noted with a hypoxia at jail and requires bagging, pulse oxygen saturation improved. The patient after bagging admitted to Intensive Care Unit from yesterday. The patient has been noted without any coughing, sputum expectoration, chest pain, able to get some communication verbally with lip reading. The patient has been noted comfortable with this morning of assessment. She has not been noted any further episodes of hypoxia and any hemodynamic instability and did not require any modification of treatment. The arterial blood gas that was done for this patient was noted with hypercapnia yesterday as well with some adjustment and ventilator were done. REVIEW OF SYSTEMS: Could not be completed effective because of lack of good verbal communications. PAST MEDICAL HISTORY: 1. Known with a chronic ventilator dependency, chronic hypercapnic hypoxic respiratory failure. 2. History of bilateral vocal cord paralysis. 3. History of obstructive sleep apnea disorder as well. 4. History of congestive heart failure with diastolic dysfunction. 5. Severe morbid obesity. 6. Chronic obstructive pulmonary disease. 7. History of gastroparesis. 8. Pickwickian syndrome. 9. General anxiety disorder. 10. History gout. 11. 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 PAST SURGICAL HISTORY: 1. Tracheostomy. 2. Therapeutic bronchoscopies. SOCIAL HISTORY: The patient is not , resident of nursing facility. She has not been noted any history of alcohol, illicit drug use or tobacco use. FAMILY HISTORY: Unknown. CODE STATUS: DNR comfort care. MEDICATIONS: The current medication administered noted use of Imdur, Aldactone, latanoprost eyedrops, primidone, sertraline, levothyroxine, IV Solu-Medrol, [place], [place] REPORT OF CONSULTATION NAME: RUSS CULVER UNIT #: [id number] ROOM: [facility] DOCTOR: JET BHATIA MD,RAJIV BIRTHDATE: [birth year] Lipitor, BuSpar, IV Zosyn, omeprazole, loratadine, folic acid, levodopa, carbidopa, aspirin, Mucinex, DuoNeb, metoprolol tartrate, allopurinol and other p.r.n. medications. ALLERGIES: Noted with: 1. TETRACYCLINE. 2. SULFAMETHOXAZOLE. 3. BACTRIM. 2. MEPERIDINE. PHYSICAL EXAMINATION: GENERAL: This is a 67-year-old female with noted currently awake and alert. The patient is on the mechanical ventilator, height of 4 feet 8 inches, weight 219 pounds, BMI is 65. VITAL SIGNS: The patient noted a normal temperature, respiratory rate of 18-28, heart rate ranging between 85-111 on admission, blood pressure 113/67-152/71. Pulse oxygen saturation 40% oxygen 99% saturation. HEENT: Examination shows head was atraumatic. Eyes nonicterus. NECK: Supple. Tracheostomy in place. NECK: Short and obese. CARDIOVASCULAR SYSTEM: S1, S2 is audible. LUNGS: The patient was noted without any wheezing or crackles. ABDOMEN: Noted severe morbid obesity. Bowel sounds present. EXTREMITIES: The patient noted with chronic obesity with minimal edema. VISIBLE SKIN: No lesions or rashes. CENTRAL NERVOUS SYSTEM: Overall general weakness was noted. The patient is able to move the upper and lower extremity. The patient with general weakness. The patient noted with a chronic finding. SKIN: No lesions or rashes. MUSCULOSKELETAL SYSTEM: No apparent deformities. LABORATORY DATA: CBC that was done on 08/06/2018, WBC count 11.3, hemoglobin 10.3 mets 35.2, platelet count was normal. Lactic acid 1.0 on 08/06/2018. CMP of 08/06/2018, BUN 45, creatinine 1.88. The glucose 151. Potassium 5.6. Troponin minimally elevated at 0.079. Arterial blood gas, pH of 7.22, pCO2 of 51, pO2 129. The endotracheal aspirate culture noted with many epithelial cells, few epithelial cells, few gram-negative bacilli, moderate growth of gram-negative bacilli, pending identification sensitivities. Chest x-ray noted a tracheostomy in place. The patient with tracheomegaly, which is a chronic finding. There was no evidence of acute pulmonary infiltration. IMPRESSION: 1. The patient has been noted shortness breath mainly to mucus impaction possibility of acute bronchitis cannot be completely excluded. The patient does not have any significant severe leukocytosis. The patient was noted afebrile as well. Possible colonization gram-negative infection would be considered. 2. Possible consideration of acute exacerbation of chronic obstructive pulmonary disease, which has been noted better for the patient with use of the corticosteroids. 3. Chronic obesity. [place], [place] REPORT OF CONSULTATION NAME: RUSS CULVER UNIT #: [id number] ROOM: [facility] DOCTOR: RAJIV JONES MD BIRTHDATE: [birth year] 4. Chronic vent dependence as well. 5. The patient with hypercapnia, Pickwickian syndrome as well. PLAN OF MANAGEMENT: The patient could be transferred back to nursing facility with usual bronchodilators administration. Corticosteroids will be given for a couple of days and discontinue. Follow the cultures and the patient does develop increased purulent secretions, fever or chills. Certainly follow these cultures and treat the patient according to the need of the antibiotics at this time and may not consider patient to treatment. Certainly colonization could be considered as a tracheobronchitis. Usual care, other supportive therapy, plan of management, DVT prophylaxis, other medical management has already been in progress. RAJIV CHAUDHARY MD CM:CONSTR:REPORT OF CONSULTATION 1203 08/13/18 1021 interface
--- NOTE | ~2018-08-06 | CON ---
[place], [place] REPORT OF CONSULTATION NAME: RUSS CULVER UNIT #: [id number] ROOM: [facility] DOCTOR: DANIELLE BOBBY DO BIRTHDATE: [birth year] DOS: REQUESTING PHYSICIAN: Dr. Sandi Lopes. REASON FOR CONSULTATION: Respiratory failure. HISTORY OF PRESENT ILLNESS: The patient is a 67-year-old female who presented to the ED on 08/06/2018 due to hypoxia. The patient is a long-term resident at [facility] and she receives ventilation via a tracheostomy. She states that 2 days ago, she thinks she was dehydrated and that her mucus that was suctioned from her tracheostomy was very thick at that time. She also reports that her vent settings were changed afterwards and her oxygenation was not able to be maintained, so she was subsequently sent to the ED at [facility]. Per the ED record, the patient was with a pulse oximetry at 64% when EMS arrived at the nursing facility and that when EMS increased the patient's tidal volume from 500 to 700, her pulse oximetry improved to 97%. The chest x-ray obtained in the ED showed no acute pulmonary abnormality. The patient was administered IV Levaquin, IV Solu-Medrol, a DuoNeb treatment and a bolus 1 liter normal saline and she was subsequently admitted to the ICU for care of sepsis secondary to pneumonitis as well as an acute exacerbation of COPD. The Pulmonary Medicine Service was consulted for further evaluation of the patient's respiratory failure. PAST MEDICAL HISTORY: List includes COPD, gastroparesis, diastolic congestive heart failure, obstructive sleep apnea, chronic hypercapnic respiratory failure, bilateral vocal cord paralysis, long-term ventilatory support via a tracheostomy, generalized anxiety, depression, gout, morbid obesity, type 2 diabetes, chronic low back pain, hypertension, Pickwickian syndrome, history of many frequent hospitalizations with 3 past hospitalizations at [facility] this summer alone. PAST SURGICAL HISTORY: List includes history of a tracheostomy, history of bronchoscopy. SOCIAL HISTORY: The patient is not a current smoker, but was with a former history of tobacco abuse. She denies use of alcohol or any illicit drugs. She is a long-term resident at [facility]. FAMILY HISTORY: The patient's mother and father are both noted to be . ALLERGIES: THESE INCLUDE ALLERGIES TO DEMEROL, TO PHENYLALANINE, TO TETRACYCLINE, TO BACTRIM AND WELL TO TAPE. CURRENT MEDICATIONS: These include Imdur 60 mg daily, spironolactone 100 mg daily, Tylenol 650 mg every 6 hours as needed for pain, latanoprost eyedrops 1 drop to each eye before bed, Nystatin powder topically every 12 hours to affected areas as needed for redness, potassium chloride 20 mEq daily, primidone 50 mg before bed, Lantus subcutaneously 50 units every 12 hours, Zoloft 100 mg before bed, omeprazole 20 mg daily, metoprolol tartrate 12.5 mg every 12 hours, Ativan 0.5 mg every 6 hours as needed for agitation or anxiety, loratadine 10 mg [place], [place] REPORT OF CONSULTATION NAME: RUSS CULVER UNIT #: [id number] ROOM: [facility] DOCTOR: DANIELLE BOBBY DO BIRTHDATE: [birth year] daily, levothyroxine 250 mcg before bed, folic acid 1 mg daily, Sinemet ____ every 12 hours, BuSpar 10 mg every 8 hours, Lipitor 40 mg daily, aspirin 81 mg daily, IV Zosyn 3.375 grams every 6 hours, guaifenesin syrup 100 mg every 6 hours as needed for cough, DuoNeb treatments every 4 hours as needed for shortness of breath, IV Solu-Medrol 20 mg every 12 hours. REVIEW OF SYSTEMS: GENERAL: Denies fevers. Admits to chills. HEENT: Denies changes to vision, changes to hearing, any eye pain, ear pain, or dysphagia. CARDIOVASCULAR: Denies chest pain. Admits to palpitations. Denies diaphoresis. RESPIRATORY: Admits to shortness of breath and dyspnea on exertion. Admits to cough, productive for thick clear sputum. Admits to wheezing. ABDOMEN: Denies nausea, vomiting, abdominal pain. Admits to watery diarrhea. Denies constipation. Admits to decreased appetite. The patient reports that she has lost around 55 or so pounds since April of this year due to lack of interest in eating, which she attributes to poor tasting food. GENITOURINARY: Denies dysuria, hematuria, increased urinary frequency or urgency. NEUROLOGICAL: Denies lightheadedness or dizziness. PSYCHOLOGICAL: Admits to increased anxiety. Denies depression or substance abuse. ENDOCRINE: Admits to intolerance to cold. Denies intolerance to heat. SKIN: Denies any new rashes, ulcers, or lesions. PHYSICAL EXAMINATION: VITAL SIGNS: Show temperature at 98.7 degrees Fahrenheit, heart rate at 65, respiratory rate at 21, blood pressure 132/67, pulse oximetry 99% on 40% FiO2. GENERAL APPEARANCE: The patient was awake, alert, responsive, cooperative and in no acute distress. She is morbidly obese. HEENT: Head was normocephalic and atraumatic. No lesions or ulcerations were noted to the eyes. The patient was noted with short cropped hair. NECK: Tracheostomy was in place. HEART: Regular rate and rhythm were noted. Positive S1 and S2 sounds were heard. No murmurs, rubs or gallops were appreciated. The bilateral lower extremities were without edema. PULMONARY: Decreased breath sounds were heard. Occasional rhonchi were auscultated. No wheezing or rales were appreciated. ABDOMEN: Soft and nontender to palpation. Bowel sounds were present. The abdomen was obese. EXTREMITIES: The bilateral lower extremities were without pitting edema. No clubbing, cyanosis or erythema was noted. NEUROLOGIC: The patient was grossly without any focal neurologic deficits. Cranial nerves 2-12 are grossly intact. PSYCHOLOGICAL: The patient was with a normal mood and affect. She was a fair historian. SKIN: Warm and dry without any induration or erythema. LABORATORY DATA: Most recent CBC from yesterday 08/06/2018 showed white count [place], [place] REPORT OF CONSULTATION NAME: RUSS CULVER UNIT #: [id number] ROOM: [facility] DOCTOR: DANIELLE BOBBY DO BIRTHDATE: [birth year] at 11.3, hemoglobin 10.3, hematocrit 35.2, platelets 182. Most recent arterial blood gases from yesterday 08/06/2018 around 11:20 a.m. showed pH at 7.221, pCO2 at 51.7, pO2 at 129.0, bicarbonate at 20.6. Most recent chemistries from yesterday 08/06/2018 showed sodium at 141, potassium at 5.6, chloride at 110, bicarbonate at 23, BUN at 45, creatinine at 1.88, glucose at 151, lactic acid was 1.2, calcium 8.6, total bilirubin 0.3, AST 24, ALT 10, alkaline phosphatase 240, troponin 0.079, total protein 7.8, albumin 3.1, lipase 196. In terms of microbiology, blood cultures obtained on admission are pending and nasal swab is also pending for MRSA. Sputum culture shows preliminary growth for moderate amount of gram-negative bacilli. IMAGING STUDIES: Chest x-ray obtained yesterday 08/06/2018 showed no acute pulmonary abnormality. IMPRESSION: 1. Acute hypoxic on chronic hypercapnic respiratory failure, improved. 2. Morbid obesity. 3. Normocytic anemia. 4. Leukocytosis. 5. Lymphopenia. 6. Hyperkalemia. 7. Hyperchloremia. 8. Hyperglycemia. 9. Stage III chronic kidney disease. 10. Transaminitis. 11. Elevated troponin, which appears to have been chronic since 04/2017. 12. Chronic obstructive pulmonary disease. 13. Gastroparesis. 14. Diastolic congestive heart failure. 15. Obstructive sleep apnea. 16. Pickwickian syndrome. 17. Bilateral vocal cord paralysis with buttermaker continuous churn ventilatory support via a tracheostomy. 18. Generalized anxiety. 19. Depression. 20. Gout. PLAN OF MANAGEMENT: The patient is currently on IV Zosyn, IV Solu-Medrol, Mucinex as well as, as needed bronchodilator therapy. Sputum cultures and blood cultures are pending at the moment. The patient is clinically stable at this time for consideration of discharge back to her nursing facility. It is recommended that the patient's sputum culture results to be followed and she can be treated based on the sensitivities should the patient become febrile. Danielle Bobby DO [place], [place] REPORT OF CONSULTATION NAME: RUSS CULVER UNIT #: [id number] ROOM: [facility] DOCTOR: DANIELLE BOBBY DO BIRTHDATE: [birth year] RAJIV CHAUDHARY MD CM:CONSTR:REPORT OF CONSULTATION 1138 08/07/18 1255 interface
[~2018-08-06 06:25] MED LIST changes: +COLISTIMETHATE150 M1 IV; +KLOR-CON 1010 ME1 PO; -POTASSIUM CHLO20 ME3 PO; -VENTOLIN 02.5 MG/3 M INH; +XOPENEX0.31 MG/3 INH
[2018-08-06] MEDS ORDERED: TESSALON PERLE100 M1 PO (06:31)
[2018-08-06] MEDS ORDERED: CLARITIN10 MG PO (06:31)
[2018-08-06 07:14] LABS: BASO % 0.4 % (0.0-1.0); EOS # 0.1 10*3/uL (0.0-0.4); EOS % 0.8 % (1.0-4.0); HEMATOCRIT 35.2 % (37.0-47.0); HEMOGLOBIN 10.3 g/dl (12.0-16.0); LYMPH # 0.5 10*3/uL (1.3-4.4); LYMPH % 4.7 % (27.0-41.0); MEAN CELL VOLUME 95.9 fl (81.0-99.0); MEAN CORPUSCULAR HGB 28.1 pg (27.0-31.0); MEAN CORPUSCULAR HGB CONC 29.3 g/dl (33.0-37.0); MEAN PLATELET VOLUME 11.9 fl (9.6-12.3); MONO # 0.8 10*3/uL (0.1-1.0); MONO % 6.7 % (3.0-9.0); NEUT # 9.9 10*3/uL (2.3-7.9); NEUT % 86.9 % (47.0-73.0); PLATELET COUNT AUTOMATED 182 10*3/uL (130-400); RED BLOOD COUNT 3.67 10*6/uL (4.10-5.10); RED CELL DISTRI WIDTH 14.7 % (0-14.5); WHITE BLOOD COUNT 11.3 10*3/uL (4.8-10.8)
[2018-08-06 07:32] LABS: ALBUMIN 3.1 gm/dl (3.1-4.5); CREATININE 1.88 mg/dL (0.55-1.02); POTASSIUM 5.6 mmol/L (3.5-5.1); TOTAL PROTEIN 7.8 gm/dL (6.4-8.2)
[2018-08-06 07:38] LABS: TROPONIN I 0.079 ng/ml (<0.045)
[2018-08-06 11:40] LABS: ABG HCO3 20.6 mmol/l (22-26); ABG O2 SATURATION 98.3 % (95-97); ARTERIAL BLOOD GAS PCO2 51.7 mmHg (35-45); ARTERIAL BLOOD GAS PH 7.221 (7.35-7.45)
[2018-08-06] MEDS ORDERED: NITROSTAT0.4 MG SL (13:43)
[2018-08-06] MEDS ORDERED: ULORIC40 MG PO (13:45)
[2018-08-06] MEDS ORDERED: Imdur SA60 MG PO (13:47)
[2018-08-06] MEDS ORDERED: DESENEX43 GM T (13:49)
[2018-08-06] MEDS ORDERED: ALDACTONE100 MG PO (13:53)
[2018-08-07] VITALS: BP 146/80
[2018-08-07 04:00] VITALS: BP 139/67
[2018-08-07] MEDS ORDERED: MEDROL DOSEPAK4 MG PO (07:53)
[2018-08-07] MEDS ORDERED: GOOD NEIGHBOR L10 MG PO (07:53)
[2018-08-07 08:00] VITALS: BP 132/67
== END 2018-08-07 10:52 | disposition other institution (70) | DRG 208 ==
LOC: ED 06:25 → EDHOLD 08:44 → ICCU 08:44 → EDHOLD 08:55 → ICCU 11:07
PROVIDERS: Emergency Medicine; Internal Medicine Critical Care Medicine
PROC: 5A1945Z Respiratory Ventilation, 24-96 Consecutive Hours (ICD-10-PCS; principal; 2018-08-06)
DX: J96.21 Acute and chronic respiratory failure with hypoxia (principal); J18.9 Pneumonia, unspecified organism; J44.1 Chronic obstructive pulmonary disease with (acute) exacerbation; E66.2 Morbid (severe) obesity with alveolar hypoventilation; I13.0 Hypertensive heart and chronic kidney disease with heart failure and stage 1 through stage 4 chronic kidney disease, or unspecified chronic kidney disease; I50.30 Unspecified diastolic (congestive) heart failure; J44.0 Chronic obstructive pulmonary disease with (acute) lower respiratory infection; Z99.11 Dependence on respirator [ventilator] status; Z68.44 Body mass index [BMI] 60.0-69.9, adult; J96.22 Acute and chronic respiratory failure with hypercapnia; J96.10 Chronic respiratory failure, unspecified whether with hypoxia or hypercapnia; Z66 Do not resuscitate; D64.9 Anemia, unspecified; E87.8 Other disorders of electrolyte and fluid balance, not elsewhere classified; E11.65 Type 2 diabetes mellitus with hyperglycemia; N18.3 Chronic kidney disease, stage 3 (moderate); E11.43 Type 2 diabetes mellitus with diabetic autonomic (poly)neuropathy; K31.84 Gastroparesis; F32.9 Major depressive disorder, single episode, unspecified; B96.5 Pseudomonas (aeruginosa) (mallei) (pseudomallei) as the cause of diseases classified elsewhere; Z51.5 Encounter for palliative care; E87.5 Hyperkalemia; G47.00 Insomnia, unspecified; E87.6 Hypokalemia; E11.22 Type 2 diabetes mellitus with diabetic chronic kidney disease; F41.1 Generalized anxiety disorder; M10.9 Gout, unspecified; T38.0X5A Adverse effect of glucocorticoids and synthetic analogues, initial encounter; Z93.0 Tracheostomy status; Z88.1 Allergy status to other antibiotic agents; Z88.2 Allergy status to sulfonamides; Y92.89 Other specified places as the place of occurrence of the external cause; Z88.8 Allergy status to other drugs, medicaments and biological substances; Z91.048 Other nonmedicinal substance allergy status